=== PATIENT | male | born 1940 | race Caucasian/White ===

== ENCOUNTER → 2025-06-06 16:39 | Outpatient (REF) | payer OTHER, SELFPAY ==
[2025-06-06 17:33] LABS: Hematocrit 26.3 % (39.0-52.0); Hemoglobin 9.0 g/dL (13.0-18.0); Mean Corp Hgb Conc. 34.2 g/dL (33.0-37.0); Mean Corpuscular Volume 88.6 fL (80.0-94.0); Nucleated Red Blood Cells % 0 % (-); Platelet Count 239 10^3/uL (130-400); Red Cell Dist. Width 14.6 % (11.5-14.5)
[2025-06-06 17:41] LABS: ALT (SGPT) 17 U/L (0-50); AST (SGOT) 20 U/L (17-59); Albumin 3.7 g/dl (3.5-5.0); Alkaline Phosphatase 95 U/L (38-126); Blood Urea Nitrogen 48 mg/dl (9-20); Calcium 8.4 mg/dl (8.4-10.2); Carbon Dioxide 18 mmol/L (22-30); Chloride 108 mmol/L (98-107); Glucose 124 mg/dl (70-99); Magnesium 1.9 mg/dl (1.6-2.3); Potassium 4.6 mmol/L (3.5-5.1); Sodium 133 mmol/L (135-145); Total Protein 6.3 g/dl (6.3-8.2); eGFR 24.56
== END ==
LOC: OLAB 16:39
PROVIDERS: ATTENDING PHYSICIAN Student in an Organized Health Care Education/Training Program
DX: R05.9 Cough, unspecified (principal)
CPT/HCPCS: 80053; 83735; 85025

== ENCOUNTER → 2025-06-07 10:31 | Outpatient (REF) | payer OTHER, SELFPAY ==
[2025-06-07 11:07] LABS: Hematocrit 24.9 % (39.0-52.0); Hemoglobin 8.3 g/dL (13.0-18.0); Mean Corp Hgb Conc. 33.3 g/dL (33.0-37.0); Mean Corpuscular Volume 92.6 fL (80.0-94.0); Nucleated Red Blood Cells % 0 % (-); Platelet Count 224 10^3/uL (130-400); Red Cell Dist. Width 14.6 % (11.5-14.5)
[2025-06-07 11:13] LABS: ALT (SGPT) 15 U/L (0-50); AST (SGOT) 18 U/L (17-59); Albumin 3.2 g/dl (3.5-5.0); Alkaline Phosphatase 101 U/L (38-126); Blood Urea Nitrogen 45 mg/dl (9-20); Calcium 8.2 mg/dl (8.4-10.2); Carbon Dioxide 19 mmol/L (22-30); Chloride 108 mmol/L (98-107); Glucose 92 mg/dl (70-99); Magnesium 2.1 mg/dl (1.6-2.3); Potassium 4.0 mmol/L (3.5-5.1); Sodium 135 mmol/L (135-145); Total Protein 5.7 g/dl (6.3-8.2); eGFR 24.56
== END ==
LOC: OLABN 10:31
PROVIDERS: ATTENDING PHYSICIAN Student in an Organized Health Care Education/Training Program
DX: R05.9 Cough, unspecified (principal)
CPT/HCPCS: 80053; 83735; 85025

== ENCOUNTER 2025-06-09 23:39 | Inpatient (IN) | payer OTHER, SELFPAY ==
[2025-06-09 21:20] VITALS: BP 157/104
[2025-06-09 21:30] VITALS: BMI 21.9
[2025-06-09 21:43] LABS: Hematocrit 25.1 % (39.0-52.0); Hemoglobin 8.8 g/dL (13.0-18.0); Mean Corp Hgb Conc. 35.1 g/dL (33.0-37.0); Mean Corpuscular Volume 88.7 fL (80.0-94.0); Nucleated Red Blood Cells % 0 % (-); Platelet Count 247 10^3/uL (130-400); Red Cell Dist. Width 14.2 % (11.5-14.5)
[2025-06-09 21:58] LABS: ALT (SGPT) 18 U/L (0-50); AST (SGOT) 23 U/L (17-59); Albumin 3.9 g/dl (3.5-5.0); Alkaline Phosphatase 111 U/L (38-126); Blood Urea Nitrogen 48 mg/dl (9-20); Calcium 8.7 mg/dl (8.4-10.2); Carbon Dioxide 17 mmol/L (22-30); Chloride 99 mmol/L (98-107); Estimated Creatinine Clearance 18 ml/min; Glucose 149 mg/dl (70-99); Potassium 4.5 mmol/L (3.5-5.1); Sodium 129 mmol/L (135-145); Total Protein 6.6 g/dl (6.3-8.2); eGFR 23.43
[2025-06-09 22:00] VITALS: BP 168/89
[2025-06-09 22:06] LABS: Troponin I 0.121 ng/ml
--- NOTE | 2025-06-09 22:29 | ED.GENMED ---
History of Present Illness
General
Chief Complaint: Breathing Problem
Source: patient
Exam Limitations: clinical condition
Time Seen by Provider: 06/09/25 22:10
Nursing documentation reviewed up to this point in time: agreed with
History of Present Illness
History of Present Illness:
Note:
CHIEF COMPLAINT(S)
Shortness of breath
HISTORY OF PRESENT ILLNESS
The patient is an 85-year-old male with a history of congestive heart failure presenting with shortness of breath. The symptoms started recently, and the patient has been using two liters of supplemental oxygen as needed. A chest X-ray taken at an
outside facility showed bilateral opacities consistent with pneumonia. The patient has a history of hemoptysis but has not reported any recent episodes.
CHRONIC MEDICAL CONDITIONS SIGNIFICANTLY AFFECTING CARE
Congestive heart failure
PHYSICAL EXAM
General: Alert, moderate acute distress.
Skin: Warm, dry.
Head: Normocephalic, atraumatic.
Neck: Supple, trachea midline.
Eye, Ears, Nose, Mouth and Throat: Oral mucosa moist.
Cardiovascular: Normal peripheral perfusion, no edema.
Respiratory: Labored respirations with by basilar rales present
Gastrointestinal: Abdomen nondistended.
Back: Normal range of motion, normal alignment.
Musculoskeletal: Normal range of motion, normal strength.
Neurological: Hard of hearing responsive and somewhat oriented person, place, time, and situation, no obvious focal neurological deficit observed.
Psychiatric: Cooperative, appropriate mood & affect.
PROBLEM LIST
Acute:
- Pneumonia
Chronic:
- Congestive heart failure
PLAN
Administer furosemide (Lasix). Monitor kidney function.
DIFFERENTIAL DIAGNOSIS
The Differential Diagnosis includes, in no particular order and is not limited to:
- Congestive heart failure exacerbation
- Pneumonia
- Pulmonary embolism
- Chronic obstructive pulmonary disease exacerbation
- Acute respiratory distress syndrome
- Aspiration pneumonia
- Pulmonary edema
- Bronchitis
- Pleural effusion
- Interstitial lung disease
Disposition:
SUMMARY OF ENCOUNTER
The patient is an 85-year-old male from [facility] who presented to the emergency department with acute shortness of breath. The patient had an outpatient chest X-ray which revealed bilateral infiltrates suggestive of possible
pneumonia. The patient has a low-grade fever and an elevated white blood cell count. Given his medical history of congestive heart failure and current symptoms, he is showing signs of pneumonia. The patient exhibits rales at the lung bases, and
imaging indicates pulmonary vascular congestion. Its noted that the patients proBNP (B-type Natriuretic Peptide) is elevated at 27,000, suggesting cardiac stress. Additionally, troponin levels are elevated, indicating potential cardiac stress or
injury. The patient is also experiencing renal failure, with a creatinine level elevated to 2.6 from a baseline of 1.5-2.2, suggesting worsening renal function.
DISPOSITION
The patient will be admitted to the hospital service.
ASSESSMENT
The patient is assessed as having a high risk of congestive heart failure exacerbation, possible pneumonia, renal failure, and elevated cardiac markers indicating strain or injury.
EMERGENCY TREATMENTS ADMINISTERED
The patient will be started on piperacillin-tazobactam (Zosyn) for the possible pneumonia.
INDEPENDENT REVIEW OF LABS AND INTERPRETATION OF TESTS
My independent review of the CBC indicates leukocytosis, suggesting an infectious process. My independent review of B-type Natriuretic Peptide (proBNP) shows a significantly elevated level of 27,000, indicating possible cardiac stress or heart
failure exacerbation. My independent review of serum creatinine indicates an elevated level of 2.6, consistent with renal failure.
My independent interpretation of the chest X-ray shows bilateral infiltrates consistent with possible pneumonia and pulmonary vascular congestion.
MEDICATION RECONCILIATION
Piperacillin-tazobactam (Zosyn) was prescribed for the treatment of possible pneumonia.
MEDICAL DECISION MAKING
- Complexity of Data Reviewed: Chronic conditions affecting care include congestive heart failure, chronic kidney disease, and elevated troponin levels. The differential diagnosis includes congestive heart failure exacerbation, pneumonia, pulmonary
embolism, chronic obstructive pulmonary disease exacerbation, acute respiratory distress syndrome, aspiration pneumonia, pulmonary edema, bronchitis, pleural effusion, and interstitial lung disease.
- Data:
- Category 1:
- My independent review of labs includes CBC identifying leukocytosis, B-type Natriuretic Peptide (proBNP) indicating elevated levels, and creatinine showing renal failure.
- My independent interpretation of the chest X-ray reveals bilateral infiltrates and pulmonary vascular congestion.
- Risk: Prescription medication was prescribed with Piperacillin-tazobactam (Zosyn) being administered. High risk associated with CHF exacerbation, pneumonia, and renal failure, requiring hospital admission for close monitoring and treatment.
DIAGNOSIS
- Congestive heart failure exacerbation (ICD-10: I50.9)
- Pneumonia, unspecified organism (ICD-10: J18.9)
- Chronic kidney disease (CKD) (ICD-10: N18.9)
- Elevated cardiac troponin (R79.89)
Past History
Past History
ED Past Medical History: CAD, HTN, Hypercholesterolemia and Other (Status post CABG, carotid endarterectomy, celiac disease, deaf, GI bleed, peripheral vascular disease)
Social History
Tobacco: Former smoker (Quit in 1994)
Alcohol: None
Living: alone
Family History
Family History: Unable to obtain
Review of Systems
Review of Systems
Respiratory: Reports trouble breathing
Phy Exam
Physical Exam
Physical Exam:
.
Scores
Heart Failure Risk
Heart Failure Risk Score: Yes
History of Stroke or TIA: No
History of intubation for respiratory distress: Yes
Heart rate on ED arrival >/= 110: No
SaO2 <90% on arrival on room air: Yes
HR >/=110 during 3min walk test (or too ill to perform test): Yes
ECG has acute ischemic changes: No
Urea >/=12mmol/L (BUN 33.6mg/dL): Yes
Serum CO2>/=35mmol/L: No
Troponin I or T elevated to NV Level (0.4mg/dL): No
NT-proBNP >/=5,000ng/L (5,000pg/ml): Yes
HF Risk Score: 7
Admission Status: VERY HIGH RISK 69.8% Consider admission to hospital
Sepsis
Sepsis Screening
Sepsis Assessment: Sepsis
Sepsis Screen
Sepsis Screen: Sepsis
Date: 06/12/25
Time: 05:18
Course
Orders/Labs/Results
Orders:
Orders
06/09/25 21:21
Electrocardiogram (*1) Urgent
Reason for Study: Other
Other Reason for Exam: Respiratory Distress
EKG- Treatment ONCE
CR Chest - 2 Views Urgent
Comment:
Reason For Exam: respiratory distress
06/09/25 21:23
Complete Blood Count/With Diff Urgent
Comprehensive Metabolic Panel Urgent
NT-proBNP Urgent
Troponin I Urgent
06/09/25 21:25
Lactic Acid Urgent
06/09/25 22:27
Furosemide [Lasix] 60 mg IV NOW STA
Nitroglycerin Ointment [Nitro-Bid] 1 inch TOPICAL NOW STA
06/09/25 22:28
Piperacillin/Tazo 4.5 Gram [Zosyn] 4.5 gram in 100 ml IV NOW
06/09/25 22:45
Blood Culture Q30M
NBA Source: Blood/Venous
Specimen Description:
Blood Culture Q30M
NBA Source: Blood/Venous
Specimen Description:
06/09/25 23:13
Acetaminophen [Tylenol] 650 mg PO NOW STA
Bladder Scan As Directed
Follow Bladder Retention/Intermittent Cath Algorithm?: Yes
PRN if no void in __ hours: 6
Frequency: Per Retention Algorithm
If Bladder Scan Result >: 400
then:: Straight cath
Straight Cath As Directed
Frequency: Per Retention Algorithm
Additional Instructions: straight cath as needed per acute urinary retention algorithm for 24 hrs
Additional Instructions: for bladder scan greater than 400 mL
06/09/25 23:23
Admit/Transfer Patient As Directed
Co-Sign Provider:
Level of Care: Inpatient admission
Assign to:: IMU- Intermediate Care
Physician / Group: Mitul Alvarez
Diagnosis: acute on chronic HFpEF, PNA, CKD, urinary retention
Reason for Hospitalization: acute on chronic HFpEF, PNA, CKD, urinary retention
Expected length of stay greater than two midnights?: Yes
ELOS- Estimated Length of Stay in days: 3
I certify the patient meets the requirements for IP care: Yes
PRN Pain Medication Management As Directed
May give lesser potent ordered pain med per pt: Yes
preference::
Protocol:: Medication orders for pain may be administered in a
manner that supports deferring to patient preference
when the pt is:
- Requesting an ordered lesser potent pain medication.
Least to most potent pain medications are defined
as: acetaminophen < NSAID < tramadol < opioids
(morphine, oxycodone, hydromorphone).
- Requesting a lesser dose of the same medication IF
ORDERED.
- Requesting a less intrusive route of administration
if both routes are prescribed by the provider (PO <
IV).
06/09/25 23:26
Code Status As Directed
Resuscitation Status: Do not resuscitate
Based on pt advanced directive or healthcare POA form: Yes
DNR Bracelet Application ONCE
06/09/25 23:38
Levalbuterol [Xopenex 1.25 mg Inhalant Solution] 1.25 mg INH R NOW STA
06/09/25 23:39
Xopenex Reason for Use As Directed
Reason for ordering Xopenex instead of Albuterol: tachycardia
06/09/25 23:43
COVID-19 Antigen Urgent
Source: Nasal Swab
Influenza A+B Rapid Molecular Urgent
NBA Source: Nasal Swab
Specimen Description:
06/10/25 00:40
Acetaminophen [Tylenol] 650 mg PO Q4HPRN PRN mild pain/ fever>100.5F
Dexamethasone Sod Phosphate [Decadron] 4 mg IV Q12H
Heparin 5,000 units SC Q8
06/10/25 00:40
CARDIOLOGY CONSULT Routine
Consulting Provider: Chinmay Mullins
Was physician already notified: No
Reason for consult: CHF
Consult Notification Routine
Specialty to Notify: Cardiology
Date consulting provider notified: 06/10/25
Time consulting provider notified: 08:10
Notified:: Provider
Consult Notification Routine
Specialty to Notify: Nephrology
Date consulting provider notified: 06/10/25
Time consulting provider notified: 07:59
Notified:: Service
Comment: via TT
Consult Notification Routine
Specialty to Notify: Pulmonary
Date consulting provider notified: 06/10/25
Time consulting provider notified: 08:01
Notified:: Service
Comment: via TT
HF DIETARY CONSULT Routine
HF EDUCATOR CONSULT Routine
Comment:
NEPHROLOGY CONSULT Routine
Consulting Provider: Agus Sanford
Was physician already notified: No
Reason for consult: CKD4
PULMONARY CONSULT Routine
Consulting Provider: Richie Anderson
Was physician already notified: No
Reason for consult: CHF, PNA
Respiratory Culture/Gram Stain Urgent
NBA Source: Sputum
Specimen Description:
Activity As Directed
Activity Level: As Tolerated
Intake/ Output As Directed
Frequency: Per unit guidelines
Patient Education As Directed
Type: CHF folder
Comment: give on admission. Document in Interdisciplinary Education record
Sleep Apnea Assessment by RN As Directed
Comment:
Physician Instructions:
Vital Signs As Directed
Frequency: Per unit guidelines
Weight As Directed
Frequency: Daily
Type of Scale: Standing Scale
Comment: Daily morning weight. If unable to stand, use balanced bed scale.
Weight As Directed
Frequency: Once
Type of Scale: Standing Scale
Comment: Upon Admission. If unable to stand, use balanced bed scale.
Xopenex Reason for Use As Directed
Reason for ordering Xopenex instead of Albuterol: tachycardia/a-fib
Copd Education [RESP] Routine
O2 Therapy [RESP] Routine
Titrate/Wean O2 to maintain O2 sat greater than (%): 92
Pulse Ox/cont/shift [RESP] Routine
Quantity: 1
Special Instructions: Daily pulse oximetry at rest. If greater than 92% at rest also obtain pulse oximetry
while ambulating as tolerated.
Rx Incentive Spirometry [RESP] Routine
Frequency: q1h while awake
Pt Eval And Treat Routine
Activity Level: As Tolerated
DX Deep Vein Thrombosis Video Routine
06/10/25 01:03
Troponin I Q6H
06/10/25 03:25
Basic Metabolic Panel IN AM
Cardiovascular Evaluation IN AM
Complete Blood Count/No Diff IN AM
06/10/25 05:00
Piperacillin/Tazo 4.5 Gram [Zosyn] 4.5 gram in 100 ml IV Q6H
06/10/25 Breakfast
Regular
At Your Request: Limited Participation
06/10/25 06:06
Troponin I Q6H
06/10/25 07:00
Echo 2D MMode Color/Doppler Routine
Reason for Study: heart failure
06/10/25 08:00
Azithromycin [Zithromax] 250 mg PO DAILY
Carboxymethylcellulose [Refresh Celluvisc Gel] 1 drops BOTH EYES BID
Diltiazem [Cardizem] 30 mg PO QID
Furosemide [Lasix] 80 mg IV DAILY
Lactobac/Bifidobac [Visbiome] 1 cap PO DAILY
Pantoprazole [Protonix] 20 mg PO DAILY
Prednisolone Acetate [Pred Forte 1% Eye Drops] 1 drop OPHTH BID
06/10/25 13:46
Legionella Urinary Antigen Routine
NBA Source: Urine
Specimen Description:
Strep pneumoniae Antigen Routine
NBA Source: Urine
Specimen Description:
06/10/25 18:00
Diclofenac Sodium [Voltaren 0.1% Eye Drops] See Dose Instructions BOTH EYES QID
Latanoprost [Xalatan Ophthalmic Solution] See Dose Instructions BOTH EYES QPM
Abnormal Lab Results
06/09/25
21:23
WBC 17.9 H 10^3/uL
(4.8-10.8)
RBC 2.83 L 10^6/uL
(4.70-6.10)
Hgb 8.8 L g/dL
(13.0-18.0)
Hct 25.1 L %
(39.0-52.0)
MCH 31.1 H pg
(27.0-31.0)
MPV 11.6 H fL
(7.4-10.4)
Abs Immat Gran (auto) 0.2 H 10^3/uL
(0-0.05)
Absolute Neuts (auto) 14.2 H 10^3/uL
(1.4-6.5)
Absolute Lymphs (auto) 0.6 L 10^3/uL
(1.2-3.4)
Absolute Monos (auto) 2.8 H 10^3/uL
(0.1-0.6)
Immature Gran % 0.9 H %
(0-0.5)
Neutrophils % 79.2 H %
(42.2-75.2)
Lymphocytes % 3.5 L %
(20.5-51.1)
Monocytes % 15.8 H %
(1.7-9.3)
Sodium 129 L mmol/L
(135-145)
Carbon Dioxide 17 L mmol/L
(22-30)
BUN 48 H mg/dl
(9-20)
Creatinine 2.6 H mg/dL
(0.7-1.3)
Glucose 149 H mg/dl
(70-99)
Troponin I 0.121 H* ng/ml
06/09/25 21:23
06/09/25 21:23
Vital Signs
Initial and Last Documented VS:
Initial Vital Signs
Temp Pulse Resp BP Pulse Ox
99.5 F 102 30 157/104 88
06/09/25 21:20 06/09/25 21:20 06/09/25 21:20 06/09/25 21:20 06/09/25 21:20
Last Documented Vital Signs
Temp Pulse Resp BP Pulse Ox
98.0 F 90 24 166/79 96
06/11/25 23:40 06/12/25 04:00 06/12/25 04:00 06/12/25 04:00 06/12/25 04:00
*Radiology
Radiology exam reviewed: preliminary read by ED provider (Right lower lobe infiltrate, pulmonary vascular congestion consistent with pneumonia and congestive heart failure)
*Pulse Oximetry
SaO2: 94
Nasal Cannula flow liters per minute: 4
Oxygen Mode of Delivery: Room air
Patient hypoxic: no
*Critical Care Note
Total Time (30-74mins, 75-104mins- exclusive of procedures): Not Applicable
ED Attending Note
-
Portions of this chart may have been created with voice recognition software.� Occasional wrong word or��sound alike� substitutions may have occurred due to the inherent limitations of voice recognition software.
Discharge Plan
Departure
Patient Disposition: Admit
Date of Disposition: 06/09/25
Time of Disposition: 22:34
Admit to: IMU
Presentation/result/management discussed w/ accepting MD/DO: Hospitalist
Condition: Fair
Discharge Problem:
Community acquired pneumonia, Congestive heart failure (CHF), Stage 4 chronic kidney disease, Deaf
Interventions
Interventions:
*Risk Screen - Suicide Last Done: 06/10/25 01:39
*General Assessment Last Done: 06/09/25 21:26
*Neglect/Abuse Screening Last Done: 06/09/25 21:31
*ED- Fall Risk Assessment Last Done: 06/09/25 21:31
*ED COVID-19 Vaccine History Last Done: 06/10/25 01:39
*ED Influenza Vaccine History Last Done: 06/09/25 21:31
*Nursing Disposition Last Done: 06/10/25 00:33
ED- Cardiac Assessment Last Done: 06/09/25 21:22
ED- Pulmonary Assessment Last Done: 06/09/25 21:22
Discharge Date and Time
Discharge Date/Time: 06/10/25 00:33
[2025-06-09] MEDS: NITRO-BID 1 INCH TOPICAL (22:34)
[2025-06-09 22:35] VITALS: BP 156/88
--- NOTE | 2025-06-09 22:35 | W.PN.UPDATE ---
Addendum entered and electronically signed by Mitul Alvarez MD 06/10/25 12:23:
06/09/25 CXR
Findings most consistent with congestive heart failure.
Original Note:
Update Note
Progress Note Update
This note serves as an addendum to the H&P by mud tank operator Denzel Polanco
HPI
85M with impaired hearing Res of [place] HX CKD4, established ASCVD( CAD- CABG,PAD, SHIVA) Chr HFpEF , Prx AF seen at ER:
- acute shortness of breath
- OP CXR reports bilateral infiltrates suggestive of possible pneumonia
- low-grade fever and an elevated WCC
- Exam POS rales at the lung bases
- CXR pulmonary vascular congestion
- proBNP > 27,000,
- Elevated TPNI
- Cr 2.6 from a baseline of 1.5-2.2 with worsening renal function.
Relevant VS
06/09/25
21:20 06/09/25
21:22
Temp 99.5 F
Pulse 102
Resp Rate 30
Blood pressure 157/104
SaO2 88 95
Oxygen Mode of Delivery Room air
Nasal Cannula flow liters per minute 4
Selected Entries
08/04/23
06/09/25
Actual Weight 46.805 kg +13.0 kg = 59.8 kg
PE
Severe hearing impairment
Gen: alert , Dyspnea at rest
HEENT: anicteric , norma NC O2 2L
Neck:supple
Lungs:b/l diffuse I/E wheeze
Cor: fast and irregular
Abdomen:�benign
PSYCH SALES SPECIALIST:alert
b/l Susanna edema MS:
Psych: nl mood
Relevant Data
06/07/25 06/09/25
05:00 21:23
WBC 10.2 17.9 H
Hgb 8.3 L 8.8 L
06/06/25 06/07/25 06/09/25
13:50 05:00 21:23
Sodium 135 129 L
Chloride 108 H 99
Carbon Dioxide 18 L 19 L 17 L
BUN 48 H 45 H 48 H
Creatinine 2.5 H 2.5 H 2.6 H
Laboratory Tests
07/15/23 07/23/23 06/09/25
06:03 05:25 21:23
Lactic Acid 1.7
Troponin I 0.262 H* 0.121 H*
[id number] Pept [id number] > 79744
EKG
ATRIAL FIBRILLATION WITH RAPID VENTRICULAR RESPONSE
NONSPECIFIC ST AND T WAVE ABNORMALITY
ABNORMAL ECG
WHEN COMPARED WITH ECG OF 23-JUL-2023 13:34,
ATRIAL FIBRILLATION HAS REPLACED SINUS RHYTHM
MINIMAL CRITERIA FOR INFERIOR INFARCT ARE NO LONGER PRESENT
NONSPECIFIC T WAVE ABNORMALITY, WORSE IN INFERIOR LEADS
NONSPECIFIC T WAVE ABNORMALITY NOW EVIDENT IN ANTEROLATERAL LEADS
07/13/23 TTE
LVEF 60-65
No WMAL
Normal diastolic function
Mild mitral regurgitation.
Estimated pulmonary artery pressure of 32 mmHg. Assuming a right atrial
pressure of 8 mmHg.
Compared to prior from November 09, 2020, there is no significant change.
Last hospitalist admission: 07/13/2023 - 08/15/2023
DC DXs
1. Acute hypoxic RF multifocal PNA ( CAP + HCAP )
2. Severe aspiration syndrome.
3. Septic shock
4. COPD flare
5. TIIMI demand ischemia.
6. MACHELLE
8. Hypovolemic hyponatremia.
9. Traumatic retroperitoneal and iliopsoas hematoma with rhabdomyolysis.
10. Acute GIB
11. A/C GIB
12. Orthostatic hypotension
13. New fast AF .
14. Acute D - CHF
ASSESSMENT & PLAN
Acute on chr decompensated HFpEF with mild pleural effusion complicated by severe vol expansion,hypovolemic hyponatremia.
COPD flare with bronchospasm
Possible aspiration pneumonitis : HX HX Severe aspiration syndrome
Fast AF ith permissive VR due to acute HF and COPDS
Associated multifactorial acute on chronic hypoxic RF likely due to all of the above
Mildly HTN
Significant elevated pron BNP with new peak
Chr elevated TPNI due to CHF but less than before - NMITE
Multifactorial MACHELLE : cardio renal syndrome plus urinary retention ( PVR 323 cc)
- straight cath protocol
- IV Lasix 80mg daily
- cont HOSPITALITY INTERN PO Diltiazem
- IV Decadron 4mg q12h
- Xopenex tid and PRN
- Empiric IV Zosyn
- BCx sent
- Consults; Pul, CBC Card, Nephro
Conditions prior to admission:
Coronary artery disease status post CABG.
Known renal artery stenosis left 50 to 60% right 60 to 70% on MRI
PAD with history of bilateral carotid enterectomy's
Chronic kidney disease stage IV baseline creatinine 2.5
Essential hypertension
Dyslipidemia
Anemia of chronic disease.
History of GI bleed
Deaf.
DVT Px: SQH
DNR per [place] papers
IMU
[2025-06-09] MEDS: LASIX 60 MG IV (22:37)
--- NOTE | 2025-06-09 22:38 | HPS.HSE ---
Family Physician
-
Family Physician: Lance Rosales DO
Chief Complaint
-
dyspnea
History of Present Illness
Patient is a 85-year-old male with past medical history significant for hypertension, hyperlipidemia, chronic kidney disease, COPD, HFpEF, atrial fibrillation, coronary artery disease and peripheral vascular disease who presented to [facility] ED for
evaluation of dyspnea. HPI obtained from assessment review of chart. Patient with new onset shortness of breath at rest with increased need of O2 2L PRN. Patient had out patient chest x-ray that showed bilateral opacities consistent with pneumonia.
Facility sent patient to ED via EMS for evaluation and treatment.
Medical History
Past Medical History
Past Medical History: Reports Other
Additional Past Medical History:
hypertension
hyperlipidemia
chronic kidney disease
HFpEF
COPD
coronary artery disease
peripheral vascular disease
Past Surgical History: Reports Other
Additional Past Surgical History:
CABG
carotid surgery
Social History
Tobacco: Non-smoker
Alcohol: None
Drug: None
Personal: Single
Living: Alone
Employment: Not Employed
Family History
Family History: Not pertinent
Allergies / Home Medications
Allergies reflects when Allergies were last updated in [facility].
Home Medications with original date entered in [facility]
Allergy/Medication List:
Allergies
Allergy/AdvReac Type Severity Reaction Status Date / Time
barley Allergy Celiac Verified 06/09/25 21:29
disease
oats Allergy Celiac Verified 06/09/25 21:29
disease
rye grass Allergy Celiac Verified 06/09/25 21:29
disease
wheat Allergy Celiac Verified 06/09/25 21:29
disease
Home Medications
acetaminophen 325 mg tablet 650 mg (2 x 325 mg) PO Q6HPRN PRN mild pain/ fever>100.5F #30 tabs 08/07/23
diltiazem HCl 30 mg tablet 30 mg PO QID #60 tabs 08/10/23
Lactobacillus acidophilus 10 billion cell capsule (Probiotic) 10,000 mmu cells PO DAILY 06/09/25
azithromycin 250 mg tablet 250 mg PO DAILY 06/09/25
bisacodyl 10 mg rectal suppository 10 mg IN DAILY PRN constipation 06/09/25
carboxymethylcellulose sodium 1 % eye drops 1 drp ophthalmic (eye) BID 06/09/25
ipratropium 0.5 mg-albuterol 3 mg (2.5 mg base)/3 mL nebulization soln 3 ml inhalation Q6H 06/09/25
ketorolac 0.5 % eye drops 1 drp ophthalmic (eye) QID 06/09/25
latanoprost 0.005 % eye drops 1 drp ophthalmic (eye) QPM 06/09/25
lidocaine 4 % topical cream 1 applic topical BID 06/09/25
pantoprazole 20 mg tablet,delayed release 20 mg PO DAILY 06/09/25
prednisolone acetate 1 % eye drops,suspension 1 drp ophthalmic (eye) BID 06/09/25
Review of Systems
-
History Source: Patient and Half-Way
Constitutional: Reports Fever; Denies Chills
EENT: Denies Sore Throat
Respiratory: Reports Trouble Breathing; Denies Cough or Hemoptysis
Cardiac: Denies Chest Pain, Diaphoresis, Palpitations or Syncope
Abdomen/GI: Denies Abdominal Pain, Nausea, Vomiting or Diarrhea
: Denies Dysuria, Frequency or Urgency
Musculoskeletal: Denies Joint Pain or Joint Swelling
Skin: Denies Rash
Neurological: Denies Dizzy, Headache, Weakness or Numbness
Physical Exam
Vital Signs
Vital Signs
Temp Pulse Resp BP Pulse Ox
100.2 F 100 26 168/89 94
06/09/25 21:29 06/09/25 22:00 06/09/25 22:00 06/09/25 22:00 06/09/25 22:30
Physical Exam
General: Well Developed, Well Nourished and Respiratory Distress
HEENT: NormoCephalic, Moist mucous membranes, PERRLA, Ears Appear Normal and Deaf
Respiratory: Wheezes and Rales; No Rhonchi
Cardiac: S1/S2, Irregular Rhythm and Tachycardia; No Murmur
GI: Soft, Non Tender, Non Distended and Normal Bowel Sounds
Musculoskeletal: No Clubbing, No Cyanosis and No Edema
Skin: Warm and IV/Catheter Site
Neuro: Awake, AO x 3 and Nonfocal/grossly intact
Psych: Calm
Laboratory Results
-
06/09/25 21:23
06/09/25 21:23
Laboratory Results
Lactic Acid 1.7 mmol/L (0.7-2.0) 06/09/25 21:25
Total Bilirubin 0.5 mg/dl (0.2-1.3) 06/09/25 21:23
AST 23 U/L (17-59) 06/09/25 21:23
ALT 18 U/L (0-50) 06/09/25 21:23
Alkaline Phosphatase 111 U/L (38-126) 06/09/25 21:23
Troponin I 0.121 ng/ml H* 06/09/25 21:23
Data Reviewed
-
Lab Data: Labs Reviewed by me (WBC 17.9, hgb 8.8, hct 25.1, neut 79.2, Na+ 129, BUN 48, Creat 2.6, est CrCl 18, eGFR 23.43, trop 0.121, pBNP >62750)
Impression/Plan
-
IMPRESSION/PLAN:
#acute on chronic HFpEF
trop 0.121, pBNP >41858
nonischemic myocardial injury, chronically elevated troponin likely 2/2 CHF
- Admit to IMU
- daily weights
- I & Os
- Consult Cardiology
- ECHO
- IV Lasix 80mg daily
- trend troponin
#COPD exacerbation
#Possible aspiration pneumonitis : HX Severe aspiration syndrome
WBC 17.9, neut 79.2
- hold PRN DuoNeb
- Xopenex TID and PRN
- IV Decadron 4mg q12
- consult pulmonary
- empiric IV Zosyn
#chronic kidney disease
#cardiorenal syndrome with plus urinary retention (PVR 333 cc)
Na+ 129, BUN 48, Creat 2.6, est CrCl 18, eGFR 23.43
- trend BMP
- bladder scan/straight cath protocol
- Consult nephrology
#atrial fibrillation
- continue diltiazem
#anemia
hgb 8.8, hct 25.1
- appears stable
- monitor H/H
#coronary artery disease
s/p CABG
#hypertension
#hyperlipidemia
#peripheral vascular disease
Code status: DNR per [place] paperwork
DVT prophylaxis: heparin sq
[2025-06-09 22:39] VITALS: BP 164/83
[2025-06-09] MEDS: ZOSYN 100 IV (22:54)
[2025-06-09 23:00] VITALS: BP 164/90
[2025-06-09] MEDS: TYLENOL 650 MG PO (23:31)
[2025-06-09] MEDS: XOPENEX 1.25 MG INHALANT SOLUTION INH (23:44)
[2025-06-09] MEDS: FLUSH (NSS) 1 FLUSH IV (23:45)
[2025-06-10] VITALS (15 sets, daily range): BP systolic 111–158; BP diastolic 66–110; PULSE 2–96; BMI 21.6
[2025-06-10 00:16] LABS: COVID-19 Antigen Negative (Negative)
[2025-06-10] MEDS: DECADRON 4 MG IV ×3 (00:48→21:56)
[2025-06-10] MEDS: VENTOLIN NEBULES 2.5 MG INH (00:58)
--- NOTE | 2025-06-10 01:11 | W.PN.UPDATE ---
Update Note
Progress Note Update
-Called at bedside, patient with sob / audible wheezing, tachypneic and using accessory muscle to breath. afebrile, hr in 100s, bp 156/84 RR 30 SPO2 95% on 6 L.
-abg, nebs PRN, one time of IV morphine, IV dexamethasone was given
-Patient is alert and oriented hard of hearing/deaf was able to communicate with the patient with writing on paper and he wants his code status to be full code, witnessed by the nursing staff. Spoke to the daughter, and she mentioned that he was DNR
before when he was very sick last time, but wants to be sure that we go with the patient`s wishes now.
-Patient placed on Bipap.
-Daughter came at bedside, discussed the patient`s condition, all questions were answered.
[2025-06-10] MEDS: MORPHINE SULFATE 1 MG IV (01:18)
[2025-06-10] MEDS: HEPARIN 5000 UNITS SC ×3 (01:19→17:29)
[2025-06-10 01:23] LABS: B.E. -5.4 mmol/L; HCO3 18.6 mmol/L (21-28); O2 Saturation % 99.6 % (94-98); PCO2 30 mmHg (35-48); PO2 122 mmHg (83-108)
--- NOTE | 2025-06-10 01:46 | PTCARENOTE ---
received patient from ED. Upon arrival, patient very sob, belly breathing and audible wheezing with work of breathing increasing. TT respiratory therapy and RENT CONTROL OFFICE MANAGER samah and both at bedside. ABG done. Patient on 5L on arrival but transitioned to
bipap. IV steroids and morphine given. RENT CONTROL OFFICE MANAGER called family and daughter at bedside. continuing to monitor closely. Patient also deaf, staff writing down communication. call tafoya in reach.
[2025-06-10 01:58] LABS: Troponin I 0.127 ng/ml
--- NOTE | 2025-06-10 03:24 | PTCARENOTE ---
ALEXANDR put in transfer order for ICU. ICU staff asked Dr. Singh to evaluate patient first. Dr. Singh at bedside along with RT. New plan to draw abg in an hour and go from there. Patient back to IMU status for now. Continuing to closely monitor patient.
routine labs drawn and sent. call tafoya in reach.
[2025-06-10 03:44] LABS: Hematocrit 25.7 % (39.0-52.0); Hemoglobin 8.6 g/dL (13.0-18.0); Mean Corp Hgb Conc. 33.5 g/dL (33.0-37.0); Mean Corpuscular Volume 91.8 fL (80.0-94.0); Platelet Count 221 10^3/uL (130-400); Red Cell Dist. Width 14.5 % (11.5-14.5)
[2025-06-10 04:07] LABS: Blood Urea Nitrogen 48 mg/dl (9-20); Calcium 8.5 mg/dl (8.4-10.2); Carbon Dioxide 18 mmol/L (22-30); Chloride 100 mmol/L (98-107); Estimated Creatinine Clearance 16 ml/min; Glucose 186 mg/dl (70-99); HDL Cholesterol 50 mg/dl; LDL Cholesterol, Calculated 111 mg/dl; Potassium 3.8 mmol/L (3.5-5.1); Sodium 128 mmol/L (135-145); Very Low Density Lipoprotein 18 mg/dl (0-30); eGFR 21.44
[2025-06-10] MEDS: ZOSYN 100 IV (04:27)
[2025-06-10 05:01] LABS: B.E. -6.0 mmol/L; HCO3 18.0 mmol/L (21-28); O2 Saturation % 99.0 % (94-98); PCO2 29 mmHg (35-48); PO2 84 mmHg (83-108)
[2025-06-10 07:11] LABS: Troponin I 0.148 ng/ml
--- NOTE | 2025-06-10 08:16 | PTCARENOTE ---
Addendum entered by Valorie Vazquez RN 06/10/25 08:24:
Cannot verify accuracy of VS prior to 0700. Telemetry showing SR with rate 90s. Resident in to see patient and updated.
Original Note:
Assumed care of patient at beginning of this shift from previous RN with bipap in use. RT therapist in to see patient and weaned to 2L n/c; POx 92%, RR 19-21.Per RT patient only able to go to 500 on IS. Lungs diminished t/o; +MELGAR on minimal
exertion. Occasional moist cough heard, non-productive at this time. When patient exerts minimally, a fine audible expiratory wheeze noted. Patient stated he does feel better. Patient deaf; communicated with printing on paper using black sharpie
marker. He is oriented to self, but unable to give year, month or place.
[2025-06-10] MEDS: VISBIOME 1 CAP PO (08:34)
[2025-06-10] MEDS: REFRESH CELLUVISC GEL 1 DROPS BOTH EYES ×2 (08:34→20:46)
[2025-06-10] MEDS: CARDIZEM 30 MG PO ×2 (08:34→12:21)
[2025-06-10] MEDS: ZITHROMAX 250 MG PO (08:34)
[2025-06-10] MEDS: PROTONIX 20 MG PO (08:34)
[2025-06-10] MEDS: PRED FORTE 1% EYE DROPS 1 DROP OPHTH (08:35)
[2025-06-10] MEDS: LASIX 80 MG IV (08:35)
--- NOTE | 2025-06-10 09:21 | CON.CAR ---
Addendum entered and electronically signed by Leandro Pretty MD 06/10/25 18:17:
I saw and evaluated the patient, and I provided the substantive portion of the medical decision making.
I reviewed and agree with the note by ALEXANDR Chapman and it accurately reflects our care.
I personally performed the medical decision making of the this encounter and my assessment and plan is below:
Acute heart failure. Etiology uncertain. Type of heart failure uncertain. Will be obtaining echo.
For now IV diuresis.
We will not revisit the decision to withhold anticoagulation/antiplatelet.
For now avoiding SGLT2 inhibition.
After diuresis we will look to add GDMT based on echo and guidelines and response and tolerance to therapy.
Original Note:
Consultation
Consultation Request
Date/Time Consultation Requested: 06/10/2539
Date/Time Consultation Performed: 06/10/25919
Requesting Provider: Abby Rodriguez
Performing Provider: Sabrina STRANGE for Dr. Pretty
Reason for Consultation: CHF
Medical History
-
Chief Complaint: SOB
History of Present Illness:
85 y/o male (patient of Dr. Andrews- [facility] - last seen December 2022 per my call to the office) with hypertension, hyperlipidemia, CKD, COPD, CAD with hx CABG 2006, PAD with hx b/l carotid endarterectomies, PAF (per review of hospitalist notes from 08/2023-
not on AC due to anemia/Traumatic retroperitoneal and iliopsoas hematoma/GIB/duodenal ulcer- requiring 7 units PRBC's)- ASA/Plavix stopped that admit- also felt to have volume overload that admit (iatrogenic- sepsis and anemia received fluids and
blood products) and also had Type II MN that admit, and deafness who is here for SOB. He also has a cough. Per report, CXR as OP suggestive of PNA and he is being treated with ABX. Also with fever and elevated WBC. We are consulted since there is
also felt to be CHF component, as CXR here suggestive CHF and NT pro-BNP elevated. He is feeling improved at the time of my assessment. He has been treated with antibiotics, breathing tx, and lasix. He lives at [facility]. We were able to
communicate effectively with me writing on clip-board and him speaking.
Past Medical History
Past Medical History: Arrhythmias, CAD, COPD, HTN, Hypercholesterolemia and Other (as above)
Social History
Living: [facility]
Family History
Family History: Reviewed & Not Pertinent
Allergies / Home Medications
Allergy/AdvReac Type Severity Reaction Status Date / Time
barley Allergy Celiac Verified 06/09/25 21:29
disease
oats Allergy Celiac Verified 06/09/25 21:29
disease
rye grass Allergy Celiac Verified 06/09/25 21:29
disease
wheat Allergy Celiac Verified 06/09/25 21:29
disease
�Medication �Instructions �Recorded �Confirmed �Type
acetaminophen 325 mg tablet 650 mg (2 x 325 mg) PO Q6HPRN PRN 08/07/23 06/09/25 Rx
mild pain/ fever>100.5F #30 tabs
diltiazem HCl 30 mg tablet 30 mg PO QID #60 tabs 08/10/23 06/09/25 Rx
Lactobacillus acidophilus 10 10,000 mmu cells PO DAILY 06/09/25 06/09/25 History
billion cell capsule (Probiotic)
azithromycin 250 mg tablet 250 mg PO DAILY 06/09/25 06/09/25 History
bisacodyl 10 mg rectal suppository 10 mg UT DAILY PRN constipation 06/09/25 06/09/25 History
carboxymethylcellulose sodium 1 % 1 drp ophthalmic (eye) BID 06/09/25 06/09/25 History
eye drops
ipratropium 0.5 mg-albuterol 3 mg 3 ml inhalation Q6H 06/09/25 06/09/25 History
(2.5 mg base)/3 mL nebulization
soln
ketorolac 0.5 % eye drops 1 drp ophthalmic (eye) QID 06/09/25 06/09/25 History
latanoprost 0.005 % eye drops 1 drp ophthalmic (eye) QPM 06/09/25 06/09/25 History
lidocaine 4 % topical cream 1 applic topical BID 06/09/25 06/09/25 History
pantoprazole 20 mg tablet,delayed 20 mg PO DAILY 06/09/25 06/09/25 History
release
prednisolone acetate 1 % eye 1 drp ophthalmic (eye) BID 06/09/25 06/09/25 History
drops,suspension
Review of Systems
-
History Source: Other (patient and chart)
Respiratory: Cough and Trouble Breathing
Physical Exam
Vital Signs
Temp Pulse Resp BP Pulse Ox
97.7 F 90 29 133/89 92
06/10/25 07:18 06/10/25 08:34 06/10/25 08:15 06/10/25 08:34 06/10/25 08:15
Lab Results
06/10/25 03:25
06/10/25 03:25
Troponin I 0.148 ng/ml H* 06/10/25 06:06
Myc-R-Fyvxjninnxz Pept > 25422 pg/ml 06/09/25 21:23
Physical Exam
General: Well Developed and No Apparent Distress
HEENT: Normocephalic and Anicteric
Respiratory: Crackles (b/l bases) and Other (on O2 by NC- coarse lung sounds throughout)
Cardiac: Regular Rhythm
Musculoskeletal: No Edema
Skin: Warm and Dry
Neuro: Awake and Alert
Psych: Calm
Impression / Plan
-
PNA:
-on IV abx, as well as O2
-pulm is consulted
Acute HF, type unknown:
-records suggest hx HFpEF, but on my review it looks like hx volume overload in setting of fluid/blood administration- echo normal at that time
-in setting of renal dysfunction
-update echo now with bnp >80946, CXR suggestive CHF, rales to auscultation
-continue IV Lasix, which requires intensive monitoring- but need to monitor renal function and electrolytes
-will avoid SGLT2I with MACHELLE and active infection, urinary issues
MACHELLE on CKD:
-also with hyponatremia
-nephrology is consulted
PAF: per chart
-currently stable in SR. There is some AT/SVT, but no afib on monitor noted this admit. Some strips with blocked PAC's and junctional beats.
-[id number] score is at least 5 for age, HTN, CHF, and CAD. Notes reviewed and not on AC due to hx of severe bleeding as noted above.
-on diltiazem- continue this and follow telemetry.
CAD with hx CABG 2006:
-denies any CP
Abnormal troponin:
-trend to peak, obtain echo
-suspect acute, non-ischemic myocardial injury in setting of CHF, MACHELLE
-no CP
Hx PAD with surgery
I personally called and requested records from Dr. Andrews's office; they tell me they will fax
Data:
Echo 07/13/23: LV ejection fraction is 60-65 by visual assessment. Mild concentric left ventricular hypertrophy. Mild mitral regurgitation. Estimated pulmonary artery pressure of 32 mmHg.
Data Reviewed
-
EKG: Tracing Personally Visualized and interpreted (ST 102 BPM)
Radiology: Report Reviewed by me (CXR: Findings most consistent with congestive heart failure.)
Medical Tests (Nuc Med, Echo etc): Other (echo ordered)
Labs: Labs Reviewed by me
[2025-06-10] MEDS: DUONEB 3 ML INH ×3 (11:23→20:31)
[2025-06-10] MEDS: DUONEB INH (11:23)
--- NOTE | 2025-06-10 12:39 | CM ---
Addendum entered by Edwin José 06/10/25 13:06:
Love stated that we need to send for authorization and get a pending number before patient can return.
Original Note:
Initial Assessment Completed By Edwin. 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. According to daughter, patient was using a walker, but now has wheelchair bound. Dtr is noticing more confusion. Return referral sent. PLAN: Return to
[facility] when ready.
--- NOTE | 2025-06-10 13:13 | W.CON.NEPH ---
Consultation
-
Date/Time Consultation Requested: 06/10/25 0040
Date/Time Consultation Performed: 06/10/25 1150
Requesting Provider: Cristian Garcia
Performing Provider: Lynsey Mary
Reason for Consultation: MACHELLE with CKD
Medical History
-
Chief Complaint: SOB
History of Present Illness:
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
peripheral vascular disease who presented to [facility] ED for evaluation of dyspnea. According to the daughter pt has mild resp symp since 1week and took Z pack with out improvement. Symptoms aggravated hence refer to ER. HPI obtained from assessment
review of chart and daughter. Patient had out patient chest x-ray that showed CHF. He started on lasix 8mg daily with improvement of resp symp but not baseline. He still seem sob. He reports no cp or abd pain but history is limited due to EKUK. NO
abd pain or diarrhea. No dysuria. Cr on admit was at 2.6 and this morning at 2.8 hence nephrology asked to evaluate.
Note Pt last admit in 2022 -reportedly d/c with hospice to [place] but he outlived. He no longer follows nephrology at the facility, previously saw Dr Plasencia.
Past Medical History
hypertension
hyperlipidemia
chronic kidney disease
HFpEF
COPD
coronary artery disease
peripheral vascular disease
Past Surgical History: Reports Other
Additional Past Surgical History:
CABG
carotid surgery
Social History
Tobacco: Non-Smoker
Alcohol: None
Drug: None
Living: [facility]
Family History
Family History: Not Pertinent
Allergies / Home Medications
Allergy/AdvReac Type Severity Reaction Status Date / Time
barley Allergy Celiac Verified 06/09/25 21:29
disease
oats Allergy Celiac Verified 06/09/25 21:29
disease
rye grass Allergy Celiac Verified 06/09/25 21:29
disease
wheat Allergy Celiac Verified 06/09/25 21:29
disease
�Medication �Instructions �Recorded �Confirmed �Type
acetaminophen 325 mg tablet 650 mg (2 x 325 mg) PO Q6HPRN PRN 08/07/23 06/09/25 Rx
mild pain/ fever>100.5F #30 tabs
diltiazem HCl 30 mg tablet 30 mg PO QID #60 tabs 08/10/23 06/09/25 Rx
Lactobacillus acidophilus 10 10,000 mmu cells PO DAILY 06/09/25 06/09/25 History
billion cell capsule (Probiotic)
azithromycin 250 mg tablet 250 mg PO DAILY 06/09/25 06/09/25 History
bisacodyl 10 mg rectal suppository 10 mg MS DAILY PRN constipation 06/09/25 06/09/25 History
carboxymethylcellulose sodium 1 % 1 drp ophthalmic (eye) BID 06/09/25 06/09/25 History
eye drops
ipratropium 0.5 mg-albuterol 3 mg 3 ml inhalation Q6H 06/09/25 06/09/25 History
(2.5 mg base)/3 mL nebulization
soln
ketorolac 0.5 % eye drops 1 drp ophthalmic (eye) QID 06/09/25 06/09/25 History
latanoprost 0.005 % eye drops 1 drp ophthalmic (eye) QPM 06/09/25 06/09/25 History
lidocaine 4 % topical cream 1 applic topical BID 06/09/25 06/09/25 History
pantoprazole 20 mg tablet,delayed 20 mg PO DAILY 06/09/25 06/09/25 History
release
prednisolone acetate 1 % eye 1 drp ophthalmic (eye) BID 06/09/25 06/09/25 History
drops,suspension
Review of Systems
-
Unable to obtain full review of systems at this time due to: Patient Non Verbal
Physical Exam
Vital Signs
Vital Signs
Temp Pulse Resp BP Pulse Ox
99.0 F 100 30 126/85 93
06/10/25 11:39 06/10/25 12:00 06/10/25 12:00 06/10/25 12:00 06/10/25 11:26
Lab Results
WBC 16.9 10^3/uL (4.8-10.8) H 06/10/25 03:25
RBC 2.80 10^6/uL (4.70-6.10) L 06/10/25 03:25
Hgb 8.6 g/dL (13.0-18.0) L 06/10/25 03:25
Hct 25.7 % (39.0-52.0) L 06/10/25 03:25
Plt Count 221 10^3/uL (130-400) 06/10/25 03:25
Sodium 128 mmol/L (135-145) L 06/10/25 03:25
Potassium 3.8 mmol/L (3.5-5.1) 06/10/25 03:25
Chloride 100 mmol/L (98-107) 06/10/25 03:25
Carbon Dioxide 18 mmol/L (22-30) L 06/10/25 03:25
BUN 48 mg/dl (9-20) H 06/10/25 03:25
Creatinine 2.8 mg/dL (0.7-1.3) H 06/10/25 03:25
eGFR 21.44 06/10/25 03:25
Glucose 186 mg/dl (70-99) H 06/10/25 03:25
Calcium 8.5 mg/dl (8.4-10.2) 06/10/25 03:25
Pec-L-Gujkgtdanvf Pept > 96455 pg/ml 06/09/25 21:23
Albumin 3.9 g/dl (3.5-5.0) 06/09/25 21:23
Physical Exam
General: Awake, Alert, Oriented, AOx3 and Nontoxic
HEENT: EOMI, Anicteric and Facial Symmetry
Respiratory: Crackels, Normal Excursion and Nonlabored Respirations
Cardiac: S1/S2 and Regular Rate/Rhythm
Breast: Deferred by me
Abdomen: Soft, Nontender and Nondistended
Musculoskeletal: Edema (trace)
Skin: No Rash
Neuro: Nonfocal/Grossly Intact
Psych: Appropriate
Data Reviewed
-
Medical Tests (Nuc Med, Echo etc): Discussed with Family
Labs: Labs Reviewed by me and Discussed with Family
Assessment/Plan
-
Assessment:
Acute hypoxic respiratory failure on presentation
Acute CHD r EF 40% on echo
COPD exacerbation
Possible aspiration pneumonitis
MACHELLE with chronic kidney disease likely, stage IV-baseline creatinine 2.5 mg/DL
h/o Known SHIVA bilat
Hyponatremia
non gap met acidosis
Primary hypertension
Elevated LFTs
Anemia
CABG 2006
HLD
History of GI bleed
EKUK
PAD -history of bilateral carotid endarterectomies 2017
Orthostatic hypotension
Plan:
A/w sob for 1week, failed po abx DIGITAL STRATEGIST
seem to be in CHF, echo noted EF low 41%
CKD-cr slightly up at 2.8, baseline 2.5
suspect cardiorenal,check urine studies , PVR 98cc
BP stable
hypervolemic hyponatremia-monitor
diet restriction and FR 48ounces/day
need GOC, spoke with daughter on phone in detail
No emergent HD need
d/w nursing
[2025-06-10 14:22] LABS: Urine Character Clear (Clear)
[2025-06-10 14:24] LABS: Troponin I 0.173 ng/ml
[2025-06-10 14:34] LABS: Urine Urothelial Cell 0-2 /LPF (FEW)
--- NOTE | 2025-06-10 15:20 | PTOTSP ---
Speech Language Pathology
Pt seen for clinical bedside swallow evaluation. Pt had just finished breathing treatment. Increased WOB and wheezing noted at rest. Reviewed past VSEs with aspiration. P.O. trials of thin liquid provided. Given 1 sip with slightly delayed wet
coughing. Further P.O. trials deferred. Pt in agreement for VSE tomorrow.
Recommend:
(1) VSE 06/11
(2) Consider NPO until VSE completed
(3) Oral care 4x/day with suctioning as needed
(4) Necessary meds in small amount of puree
(5) GRID TRIMMER to continue to follow
--- NOTE | 2025-06-10 15:50 | CON.PUL ---
Consultation
Consultation Request
Date/Time Consultation Requested: 06/10/2025
Date/Time Consultation Performed: 06/10/2025
Medical History
-
Chief Complaint: Shortness of breath
History of Present Illness:
Patient is a very pleasant 85-year-old gentleman with known history of COPD, heart failure with preserved ejection fraction, A-fib presented to the hospital with worsening shortness of breath. Patient reportedly symptomatic over the last few days
with professed severely worsening shortness of breath. No significant cough or purulent expectoration reported. Patient reportedly had an outpatient x-ray which was suggestive of pneumonia and was sent to emergency room for further evaluation and
treatment. Imaging in the emergency room was suggestive of bilateral pulmonary edema. Patient was admitted to IMU and overnight required briefly BiPAP and then was transition to supplemental oxygen. In view of respiratory failure, pulmonary
consultation was requested for further input.
Past Medical History
Past Medical History: Reports Other
Additional Past Medical History:
hypertension
hyperlipidemia
chronic kidney disease
HFpEF
COPD
coronary artery disease
peripheral vascular disease
Past Surgical History: Reports Other
Additional Past Surgical History:
CABG
carotid surgery
Social History
Tobacco: Non-smoker
Alcohol: None
Drug: None
Personal: Single
Living: Alone
Employment: Not Employed
Family History
Family History: Not pertinent
Allergies / Home Medications
Allergies
Allergy/AdvReac Type Severity Reaction Status Date / Time
barley Allergy Celiac Verified 06/09/25 21:29
disease
oats Allergy Celiac Verified 06/09/25 21:29
disease
rye grass Allergy Celiac Verified 06/09/25 21:29
disease
wheat Allergy Celiac Verified 06/09/25 21:29
disease
Home Medications
�Medication �Instructions �Recorded �Confirmed �Last Taken �Type
acetaminophen 325 mg tablet 650 mg (2 x 325 mg) PO Q6HPRN PRN 08/07/23 06/09/25 Unknown Rx
mild pain/ fever>100.5F #30 tabs
diltiazem HCl 30 mg tablet 30 mg PO QID #60 tabs 08/10/23 06/09/25 Unknown Rx
Lactobacillus acidophilus 10 10,000 mmu cells PO DAILY 06/09/25 06/09/25 Unknown History
billion cell capsule (Probiotic) Supplement
azithromycin 250 mg tablet 250 mg PO DAILY Lung/Breathing 06/09/25 06/09/25 Unknown History
Issues
bisacodyl 10 mg rectal suppository 10 mg [place] DAILY PRN constipation 06/09/25 06/09/25 Unknown History
carboxymethylcellulose sodium 1 % 1 drp ophthalmic (eye) BID Eye 06/09/25 06/09/25 Unknown History
eye drops Condition
ipratropium 0.5 mg-albuterol 3 mg 3 ml inhalation Q6H Lung/Breathing 06/09/25 06/09/25 Unknown History
(2.5 mg base)/3 mL nebulization Issues
soln
ketorolac 0.5 % eye drops 1 drp ophthalmic (eye) QID Eye 06/09/25 06/09/25 Unknown History
Condition
latanoprost 0.005 % eye drops 1 drp ophthalmic (eye) QPM Eye 06/09/25 06/09/25 Unknown History
Condition
lidocaine 4 % topical cream 1 applic topical BID Pain 06/09/25 06/09/25 Unknown History
pantoprazole 20 mg tablet,delayed 20 mg PO DAILY Gastrointestinal 06/09/25 06/09/25 Unknown History
release Issue
prednisolone acetate 1 % eye 1 drp ophthalmic (eye) BID Eye 06/09/25 06/09/25 Unknown History
drops,suspension Condition
Review of Systems
-
Hematologic/Lymphatic: Other (All 14 systems reviewed and negative except as stated above in the history of present illness.)
Vitals / Labs / Diagnostic Testing
Vital Signs
Temp Pulse Resp BP Pulse Ox
99.0 F 97 18 126/85 94
06/10/25 11:39 06/10/25 15:11 06/10/25 15:11 06/10/25 12:00 06/10/25 15:11
Lab Data
06/10/25 03:25
06/10/25 03:25
Laboratory Results
06/10/25 06/10/25
01:12 04:51
pH 7.40 7.40
pCO2 30 L 29 L
pO2 122 H 84
HCO3 18.6 L 18.0 L
O2 Delivery Level
Microbiology
06/10/25 13:46 Urine Legionella Urinary Antigen - Final
Negative for Legionella pneumophila Serogroup 1 antigen.
A negative result does not rule out the possiblity of
Legionella infection due to other serogroups or species of
Legionella. Clinical correlation is recommended.
06/10/25 13:46 Urine Streptococcus pneumoniae Antigen (M - Final
Negative for Streptococcus pneumoniae antigen.
A negative result does not exclude infection with
Streptococcus pneumoniae. Clinical correlation is
recommended.
06/09/25 23:43 Nasal Swab Influenza Types A & B (ANDRE) - Final
Negative for Influenza A & B, NAAT
Negative results must be combined with clinical observations
and patient history.
Nucleic Acid Amplification test (NAAT)performed on the
[employer] platform.
Diagnostic Testing:
Physical Exam
-
HEENT: Normocephalic
Cardiovascular: S1/S2
Respiratory: Rales and Rhonchi
GI: Soft and Non Distended
Neurology: Awake and Alert
Skin: Warm
General: Comfortable
Assessment
-
#1. Acute hypoxic respiratory failure, suspect pulmonary edema
- Imaging reviewed, chest x-ray suggestive of bilateral pulmonary edema. Does not appear to have classic lobar pneumonia. Atypical pneumonia could have similar appearance however patient has dropped EF as well as pedal edema and increased BNP
suggestive of volume overload
- Continue O2 support as needed, continue diuresis per cardiology/nephrology service
- Discontinue Zosyn as acute bacterial pneumonia appears to be less likely. No fever, no purulent expectoration. If patient develops any signs or symptoms of infection, can resume Zosyn
- Continue azithromycin that patient has been on chronically for underlying COPD
- Patient required BiPAP briefly overnight, since has been transition to nasal cannula. Currently appears comfortable, continue nasal cannula. Can use BiPAP on an as needed basis
- F/u CXR in AM.
#2. History of COPD.
- Current increased wheezing could certainly be 'cardiac asthma', related to volume overload
- Continue diuresis
- Agree with continuing DuoNebs and short-term prednisone. Will favor no more than 5 days of steroid therapy
- Continue p.o. azithromycin
- DC IV dexamethasone, transition to p.o. prednisone 30 mg daily for 3 more days
#3. Acute on chronic heart failure, patient has decreased ejection fraction, LVEF 41%
- With elevated renal function, signs of volume overload, concerning for cardiorenal syndrome
- Management per nephrology and cardiology service
Other medical diagnoses:
- MACHELLE with underlying chronic kidney disease, suspect cardiorenal syndrome
- Atrial fibrillation, chronic
- History of coronary artery disease, s/p coronary artery bypass graft
- Hypertension, hyperlipidemia
- Peripheral vascular disease
- History of smoking
- Prior history of GI bleed
- History of aspiration in the past
- Mild troponin leak.
Total time spent on this consultation/encounter __65__ minutes which includes review of history, physical exam, medications, laboratory data, personal review of imaging, extensive review of outpatient records, discussion with care team and
respiratory therapy.
Data:
ECHO 05/2025: 1. Left ventricular ejection fraction is mildly reduced with an ejection fraction of 41 % by Cheema's biplane method of discs.
2. Mild to moderate mitral valve regurgitation.
3. Compared to the prior on 07/13/2023, the systolic function has reduced from 60-65% to 41 %.
[2025-06-10] MEDS: CARDIZEM PO ×2 (17:29→21:22)
[2025-06-10] MEDS: XALATAN OPHTHALMIC SOLUTION 1 DROP BOTH EYES (17:40)
[2025-06-10] MEDS: EYE BOTH EYES ×2 (17:42→23:14)
[2025-06-10] MEDS: VOLTAREN BOTH EYES ×2 (17:42→23:14)
--- NOTE | 2025-06-10 17:47 | W.PN.HOSP.TC ---
Addendum entered and electronically signed by Donnie Jerome MD 06/10/25 21:09:
Attending Addendum-
I saw and evaluated the patient. I reviewed the resident�s note and agree with findings and plan as documented in the resident�s note. Sub: patient is deaf. communicated via notepad. Complains of SOB. Overnight had to be placed on bipap due to
severe SOB. Now improved. Denies fevers chills CP palps. Full 12 point ROS reviewed and negative except as documented Exam: Vitals reviewed in chart GEN-NAD heart RRR SM @ apex, lungs fine crackles at bases. abd soft NT ND pos BS LE no edema
Plan:
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
#NIMI
-stop trending trop
-daily weights, I & Os
-Cardiology input appreciated
-ECHO 06/10-Compared to the prior on 07/13/2023, the systolic function has reduced from 60-65% to 41%.
-cont IV Lasix 80mg daily
-start SGLT2i while inpatient
#COPD exacerbation-mild
#Possible aspiration pneumonitis : HX Severe aspiration syndrome
-cont nebs, cont chronic azithro
-IV Decadron->Prednisone
-apprec pulmonary input
-DC Zosyn
-speech eval
-leukocytosis likely from inflammation and stress- trend cbc
# Hyponatremia- Hypervolemic
- cont diuresis, fluid restrict
- repeat BMP in am
#MACHELLE on CKD 3b
-baseline cr @ 2.5
-cardiorenal syndrome, monitor I and O closely
-trend BMP
-nephrology input appreciated
# Acute Hypoxemic Respiratory Failure
- from CHF exacerbation
- was on bipap->NC
- cont to diurese
- wean for o2 sat > 92%
#Atrial fibrillation
-continue diltiazem, not on AC on admission
#CAD-s/p CABG
#GERD- cont pantoprazole
#HTN
#HLD
#PVD
Code status: DNR (per [place] paperwork)->FULL
DVT prophylaxis: heparin sq
Dispo Form Neshaminy Manner
ACP
Patient consented to discuss, was alone but verified with POA daughter, time spent explanation of advance directives, changes in health status, patient�s health care wishes if the patient becomes unable to make health decisions, goals of care, code
status, and prognosis clearly staets he wants to be full code, code status change from DNR- 16 minutes
Time spent coordinating care, review of plan of care with resident, personally reviewed previous records in EMR, med rec, labs, radiology, d/w nursing, family total time documented is exclusive of any additional time listed that was spent in advance
care planning discussion -�52 minutes
Original Note:
Today's Communication/Plan
-
IV Lasix 80 mg daily
DuoNeb as needed
Levalbuterol 3 times daily and as needed ox OP takes 3 times daily and as needed
Continue Zithromax 250 mg
Monitor H&H, I's and O's, weights.
Start on BiPAP
Monitor creatinine level
Monitor BMP
Will continue to monitor
Patient has scheduled VSE tomorrow via Speech
NPO as of now
Assessment / Plan
Assessment / Plan
Impression:
85-year-old male from [facility] presented to ED on 06/09/2025 with complaints of acute shortness of breath. Patient chest x-ray revealed bilateral infiltrates suggestive of possible pneumonia. Has low-grade fever and elevated
white blood cell count. Past medical history of CHF plus current symptoms could be initial signs of pneumonia. Exhibits rales at the bilateral bases and pulmonary vascular congestion via imaging. proBNP elevated at 27,000 suggesting cardiac
stress. Troponin levels are elevated indicating possible cardiac stress or injury. Experiencing renal failure with creatinine elevated to 2.6 from baseline suggesting worsening renal function.
Plan:
#Acute on chronic HFpEF
proBNP greater than 27,000
Nonischemic myocardial injury, chronically elevated troponin likely secondary to CHF
Trend troponin I: 0.1-1��0.127��0.148
Check daily weights 59.8 down to 58.8
I&O's: No intake, 610 mL output
Echo: Previous in 2022 illustrated EF equals 60 to 65%
IV Lasix 80 mg daily
Consult cardiology
#COPD exacerbation
#Possible aspiration pneumonitis: History of severe aspiration syndrome
WBC 17.9��16.9, neutrophil 79.2
DuoNeb as needed
Levalbuterol 3 times daily and as needed ox OP takes 3 times daily and as needed
Additionally was given empiric IV Zosyn AKA pip-tazo but that was changed to Zithromax 250 mg
Started on BiPAP
Consult with speech therapy for evaluation
Patient failed speech swallow test
Scheduled for VSE in AM
NPO as of now (PO meds will be switched over for now as well via Pharmacy)
#CKD��stage IV
#Cardiorenal syndrome with urinary retention, (PVR 333 cc)
Creatinine 2.6��2.8
Bladder scan/straight cath protocol: Straight cath output is 310 mL
Trend BMP
#Atrial fibrillation
� Continue diltiazem
#Anemia
H&H is stable
#CAD
S/P CABG
#Hypertension
#Hyperlipidemia
#PVD
DVT PPx: SQH
CODE STATUS: Full code (his daughter supports his wish and is his POA)
Anticipated Discharge: 24 - 48 hours
Subjective/Interval History
-
Date of Service: June 10, 2025
Overnight event: Earlier this morning patient became short of breath, tachypneic and started using accessory muscles to breathe. He became tachycardic and blood pressure was 156/84, respiratory rate was 30, SpO2 was at 95% on 6L. He was given nebs
as needed, 1 time dose of IV morphine, one-time dose of IV dexamethasone. Patient became alert and oriented but he is hard of hearing deaf and was able to communicate with writing on paper. He once his CODE STATUS to be full code, witnessed by
nursing staff. His daughter was spoken to and she mentioned that last time he was sick he was DNR but if he changes his mind she will go with his wishes. Daughter is POA. Patient was placed on BiPAP.
Objective Data
-
Vital Signs:
Vital Signs
Temp Pulse Resp BP Pulse Ox
98.3 F 97 18 126/85 94
06/10/25 16:23 06/10/25 15:11 06/10/25 15:11 06/10/25 12:00 06/10/25 15:11
I&O
06/09/25 06/10/25 06/11/25
06:59 06:59 06:59
Output Total 610 / 610 360 / 360
Balance -610 / -610 -360 / -360
Microbiology Results - Entire Visit
06/10/25 13:46 Urine Legionella Urinary Antigen - Final
Negative for Legionella pneumophila Serogroup 1 antigen.
A negative result does not rule out the possiblity of
Legionella infection due to other serogroups or species of
Legionella. Clinical correlation is recommended.
06/10/25 13:46 Urine Streptococcus pneumoniae Antigen (M - Final
Negative for Streptococcus pneumoniae antigen.
A negative result does not exclude infection with
Streptococcus pneumoniae. Clinical correlation is
recommended.
06/09/25 23:43 Nasal Swab Influenza Types A & B (ANDRE) - Final
Negative for Influenza A & B, NAAT
Negative results must be combined with clinical observations
and patient history.
Nucleic Acid Amplification test (NAAT)performed on the
[employer] platform.
Hematology and Coagulation - Last 24 hours
06/09/25 06/10/25 Range/Units
21:23 03:25
WBC 17.9 H 16.9 H (4.8-10.8) 10^3/uL
RBC 2.83 L 2.80 L (4.70-6.10) 10^6/uL
Hgb 8.8 L 8.6 L (13.0-18.0) g/dL
Hct 25.1 L 25.7 L (39.0-52.0) %
MCV 88.7 91.8 (80.0-94.0) fL
MCH 31.1 H 30.7 (27.0-31.0) pg
MCHC 35.1 33.5 (33.0-37.0) g/dL
RDW 14.2 14.5 (11.5-14.5) %
Plt Count 247 221 (130-400) 10^3/uL
MPV 11.6 H 11.5 H (7.4-10.4) fL
Abs Immat Gran (auto) 0.2 H (0-0.05) 10^3/uL
Absolute Neuts (auto) 14.2 H (1.4-6.5) 10^3/uL
Absolute Lymphs (auto) 0.6 L (1.2-3.4) 10^3/uL
Absolute Monos (auto) 2.8 H (0.1-0.6) 10^3/uL
Absolute Eos (auto) 0.1 (0-0.7) 10^3/uL
Absolute Basos (auto) 0.1 (0-0.2) 10^3/uL
Immature Gran % 0.9 H (0-0.5) %
Neutrophils % 79.2 H (42.2-75.2) %
Lymphocytes % 3.5 L (20.5-51.1) %
Monocytes % 15.8 H (1.7-9.3) %
Eosinophils % 0.3 (0-6) %
Basophils % 0.3 (0-2) %
Nucleated RBC % 0 (-) %
Blood Gas and Chemistry - Last 24 hours
06/09/25 06/09/2506/09/25 Range/Units
21:23 21:25 22:45
pH (7.35-7.45)
pCO2 (35-48) mmHg
pO2 (83-108) mmHg
HCO3 (21-28) mmol/L
Base Excess mmol/L
ABG O2 Sat (Measured) (94-98) %
O2 Delivery Level
Sodium 129 L (135-145) mmol/L
Potassium 4.5 (3.5-5.1) mmol/L
Chloride 99 (98-107) mmol/L
Carbon Dioxide 17 L (22-30) mmol/L
BUN 48 H (9-20) mg/dl
Creatinine 2.6 H (0.7-1.3) mg/dL
Estimated Creat Clear 18 ml/min
eGFR 23.43
Glucose 149 H (70-99) mg/dl
Lactic Acid 1.7 Cancelled (0.7-2.0) mmol/L
Calcium 8.7 (8.4-10.2) mg/dl
Total Bilirubin 0.5 (0.2-1.3) mg/dl
AST 23 (17-59) U/L
ALT 18 (0-50) U/L
Alkaline Phosphatase 111 (38-126) U/L
Troponin I 0.121 H* ng/ml
Vwq-R-Dfvrurmczgp Pept > 85723 pg/ml
Total Protein 6.6 (6.3-8.2) g/dl
Albumin 3.9 (3.5-5.0) g/dl
Triglycerides (10-149) mg/dl
Total Cholesterol (50-199) mg/dl
LDL Cholesterol, Calc mg/dl
VLDL Cholesterol, Calc (0-30) mg/dl
HDL Cholesterol mg/dl
06/10/25 06/10/25 06/10/25 Range/Units
01:03 01:12 03:25
pH 7.40 (7.35-7.45)
pCO2 30 L (35-48) mmHg
pO2 122 H (83-108) mmHg
HCO3 18.6 L (21-28) mmol/L
Base Excess -5.4 mmol/L
ABG O2 Sat (Measured) 99.6 H (94-98) %
O2 Delivery Level
Sodium 128 L (135-145) mmol/L
Potassium 3.8 (3.5-5.1) mmol/L
Chloride 100 (98-107) mmol/L
Carbon Dioxide 18 L (22-30) mmol/L
BUN 48 H (9-20) mg/dl
Creatinine 2.8 H (0.7-1.3) mg/dL
Estimated Creat Clear 16 ml/min
eGFR 21.44
Glucose 186 H (70-99) mg/dl
Lactic Acid (0.7-2.0) mmol/L
Calcium 8.5 (8.4-10.2) mg/dl
Total Bilirubin (0.2-1.3) mg/dl
AST (17-59) U/L
ALT (0-50) U/L
Alkaline Phosphatase (38-126) U/L
Troponin I 0.127 H* ng/ml
Dtu-Z-Pashximeskw Pept pg/ml
Total Protein (6.3-8.2) g/dl
Albumin (3.5-5.0) g/dl
Triglycerides 92 (10-149) mg/dl
Total Cholesterol 179 (50-199) mg/dl
LDL Cholesterol, Calc 111 mg/dl
VLDL Cholesterol, Calc 18 (0-30) mg/dl
HDL Cholesterol 50 mg/dl
06/10/25 06/10/25 06/10/25 Range/Units
04:51 06:06 13:07
pH 7.40 (7.35-7.45)
pCO2 29 L (35-48) mmHg
pO2 84 (83-108) mmHg
HCO3 18.0 L (21-28) mmol/L
Base Excess -6.0 mmol/L
ABG O2 Sat (Measured) 99.0 H (94-98) %
O2 Delivery Level
Sodium (135-145) mmol/L
Potassium (3.5-5.1) mmol/L
Chloride (98-107) mmol/L
Carbon Dioxide (22-30) mmol/L
BUN (9-20) mg/dl
Creatinine (0.7-1.3) mg/dL
Estimated Creat Clear ml/min
eGFR
Glucose (70-99) mg/dl
Lactic Acid (0.7-2.0) mmol/L
Calcium (8.4-10.2) mg/dl
Total Bilirubin (0.2-1.3) mg/dl
AST (17-59) U/L
ALT (0-50) U/L
Alkaline Phosphatase (38-126) U/L
Troponin I 0.148 H* Cancelled ng/ml
Aka-Y-Cueclovtinp Pept pg/ml
Total Protein (6.3-8.2) g/dl
Albumin (3.5-5.0) g/dl
Triglycerides (10-149) mg/dl
Total Cholesterol (50-199) mg/dl
LDL Cholesterol, Calc mg/dl
VLDL Cholesterol, Calc (0-30) mg/dl
HDL Cholesterol mg/dl
06/10/25 06/10/25 Range/Units
13:42 19:40
pH (7.35-7.45)
pCO2 (35-48) mmHg
pO2 (83-108) mmHg
HCO3 (21-28) mmol/L
Base Excess mmol/L
ABG O2 Sat (Measured) (94-98) %
O2 Delivery Level
Sodium (135-145) mmol/L
Potassium (3.5-5.1) mmol/L
Chloride (98-107) mmol/L
Carbon Dioxide (22-30) mmol/L
BUN (9-20) mg/dl
Creatinine (0.7-1.3) mg/dL
Estimated Creat Clear ml/min
eGFR
Glucose (70-99) mg/dl
Lactic Acid (0.7-2.0) mmol/L
Calcium (8.4-10.2) mg/dl
Total Bilirubin (0.2-1.3) mg/dl
AST (17-59) U/L
ALT (0-50) U/L
Alkaline Phosphatase (38-126) U/L
Troponin I 0.173 H* Pending ng/ml
Anx-J-Vqyyhzuypew Pept pg/ml
Total Protein (6.3-8.2) g/dl
Albumin (3.5-5.0) g/dl
Triglycerides (10-149) mg/dl
Total Cholesterol (50-199) mg/dl
LDL Cholesterol, Calc mg/dl
VLDL Cholesterol, Calc (0-30) mg/dl
HDL Cholesterol mg/dl
Other lab results - Last 24 hours
06/09/25 06/10/25 Range/Units
23:43 Unknown
Urine Color Yellow
Urine Clarity Clear (Clear)
Urine pH 5.0 (5.0-9.0)
Ur Specific Peak 1.010 (<1.030)
Urine Ketones Negative (Negative)
Urine Occult Blood 2+ A (Negative)
Urine Nitrite Negative (Negative)
Urine Bilirubin Negative (Negative)
Urine Urobilinogen Negative (Neg - 1+)
Ur Leukocyte Esterase Negative (Negative)
Urine RBC 3-6 A (0-2) /HPF
Urine WBC 3-5 (0-5) /HPF
Ur Squamous Epith Cells 3-5 (Few) /LPF
Ur Urothelial Cells 0-2 (FEW) /LPF
Urine Bacteria Few A (Negative)
Urine Creatinine 15.800 mg/dl
Urine Sodium 81 (30-90) mmol/L
Urine Glucose Negative (Negative)
Urine Albumin 3+ A (Neg - Trace)
SARS-CoV-2 Antigen Negative (Negative)
Review of Systems
-
Unable to obtain full review of systems at this time due to: Patient Non-verbal (He is deaf)
History Source: Patient and Family
All other systems: Reviewed and negative
Respiratory: Reports Cough
Psych: Reports Anxious
Physical Exam
-
General: Well Developed and Well Nourished
HEENT: Normocephalic, Atraumatic and Other (Hearing impairment)
Respiratory: Clear to Auscultation
Cardiac: Regular Rhythm and S1/S2
Breast: Deferred by me
GI: Soft, Nontender and Nondistended
Musculoskeletal: No Clubbing, No Cyanosis and No Edema
Neuro: Awake and Alert
Psych: Anxious
Data Reviewed
-
Diagnostic Radiology: Report Reviewed by me
Medical Tests (Nuc Med, Echo etc): Report Reviewed by me and Discussed with Physician
Labs: Labs Reviewed by me and Discussed with Physician
--- NOTE | 2025-06-10 18:08 | PTCARENOTE ---
Patient now NPO. TT sent to Dr Jerome and Dr Foss to make them aware. Dr Pretty on unit to see patient and made aware patient NPO but ordered cardizem po.
[2025-06-10] MEDS: PRED FORTE 1% EYE DROPS 1 DROP BOTH EYES (20:46)
[2025-06-10] MEDS: ZITHROMAX 252.5 MG IV (21:56)
[2025-06-10 23:39] LABS: Troponin I 0.168 ng/ml
[2025-06-11] VITALS (15 sets, daily range): BP systolic 92–164; BP diastolic 69–104; PULSE 107; O2SAT 94; BMI 21.6
[2025-06-11] MEDS: HEPARIN 5000 UNITS SC ×4 (00:30→23:14)
[2025-06-11 05:43] LABS: Hematocrit 23.2 % (39.0-52.0); Hemoglobin 8.0 g/dL (13.0-18.0); Mean Corp Hgb Conc. 34.5 g/dL (33.0-37.0); Mean Corpuscular Volume 91.3 fL (80.0-94.0); Nucleated Red Blood Cells % 0 % (-); Platelet Count 203 10^3/uL (130-400); Red Cell Dist. Width 14.6 % (11.5-14.5)
[2025-06-11 06:11] LABS: ALT (SGPT) 21 U/L (0-50); AST (SGOT) 25 U/L (17-59); Albumin 3.6 g/dl (3.5-5.0); Alkaline Phosphatase 98 U/L (38-126); Blood Urea Nitrogen 69 mg/dl (9-20); Calcium 8.8 mg/dl (8.4-10.2); Carbon Dioxide 19 mmol/L (22-30); Chloride 101 mmol/L (98-107); Estimated Creatinine Clearance 14 ml/min; Glucose 135 mg/dl (70-99); Magnesium 2.5 mg/dl (1.6-2.3); Potassium 3.8 mmol/L (3.5-5.1); Sodium 136 mmol/L (135-145); Total Protein 6.2 g/dl (6.3-8.2); eGFR 18.27
[2025-06-11] MEDS: DUONEB 3 ML INH ×4 (07:44→19:20)
[2025-06-11] MEDS: PROTONIX IV 20 MG IV (08:10)
[2025-06-11] MEDS: VISBIOME PO (08:10)
[2025-06-11] MEDS: NSS (PRESERVATIVE FREE) 10 ML IV (08:11)
[2025-06-11] MEDS: REFRESH CELLUVISC GEL 1 DROPS BOTH EYES ×2 (08:16→20:14)
[2025-06-11] MEDS: PRED FORTE 1% EYE DROPS 1 DROP BOTH EYES ×2 (08:23→20:15)
[2025-06-11] MEDS: EYE BOTH EYES ×4 (08:24→23:14)
[2025-06-11] MEDS: VOLTAREN BOTH EYES ×4 (08:24→23:14)
[2025-06-11] MEDS: ZITHROMAX PO (08:27)
--- NOTE | 2025-06-11 08:29 | W.PN.CD ---
Today's Communication / Plan
-
Continue diuresis
Add metoprolol for GDMT
Impression / Plan
-
85 y/o male (patient of Dr. Andrews- [facility] - last seen December 2022 with hypertension, hyperlipidemia, CKD, COPD, CAD with hx CABG 2006, PAD with hx b/l carotid endarterectomies, PAF (per review of hospitalist notes from 08/2023- not on AC due to
anemia/Traumatic retroperitoneal and iliopsoas hematoma/GIB/duodenal ulcer- requiring 7 units PRBC's)- ASA/Plavix stopped that admit- also felt to have volume overload that admit (iatrogenic- sepsis and anemia received fluids and blood products) and
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 Found to have acute hypoxic respiratory failure and reduced EF.
Acute hypoxic respiratory failure
- Multifactorial due to acute CHF exacerbation, COPD, and possible atypical pneumonia
- Wean supplemental O2 as tolerated
- Continue with antibiotics for pneumonia and short-term steroids for COPD. Pulmonary is consulted
- Management of CHF as below
Acute HFrEF
- Severe exacerbation requiring IV diuresis and close monitoring of labs and telemetry
- TTE 06/10/2025: LVEF 41%, global hypokinesis, mild/moderate mitral regurgitation
- Unclear chronicity/etiology. Still awaiting outside records
- Continue with 80 mg IV Lasix daily. Suspect he is still volume overloaded despite creatinine bump.
- Weight in 2022 was 100-105 pounds. He is currently 129 pounds.
- GDMT:
- Switch diltiazem to metoprolol succinate 50 mg daily
- Other GDMT (TICO/ARB/ARNI, SGLT2 inhibitor, MRA) currently limited by renal function
MACHELLE on CKD:
-also with hyponatremia
-nephrology is consulted
PAF: per chart
-currently stable in SR. There is some AT/SVT, but no afib on monitor noted this admit. Some strips with blocked PAC's and junctional beats.
-[id number] score is at least 5 for age, HTN, CHF, and CAD. Notes reviewed and not on AC due to hx of severe bleeding as noted above.
-Diltiazem switched to metoprolol given HFrEF
CAD with hx CABG 2007:
-denies any CP
Abnormal troponin:
-due to acute, non-ischemic myocardial injury in setting of CHF, MACHELLE. Peak 0.173
-no CP
Hx PAD with surgery
Subjective: No complaints.
Physical Exam
Vital Signs/Labs
Vital Signs
Temp Pulse Resp BP Pulse Ox
97.4 F 93 23 133/81 93
06/11/25 07:43 06/11/25 08:00 06/11/25 08:00 06/11/25 07:29 06/11/25 08:08
06/10/25 06/11/25 06/12/25
06:59 06:59 06:59
Actual Weight 129 lb 10.109 oz
06/11/25 05:33
06/11/25 05:33
Magnesium 2.5 mg/dl (1.6-2.3) H 06/11/25 05:33
Triglycerides 92 mg/dl (10-149) 06/10/25 03:25
LDL Cholesterol, Calc 111 mg/dl 06/10/25 03:25
VLDL Cholesterol, Calc 18 mg/dl (0-30) 06/10/25 03:25
HDL Cholesterol 50 mg/dl 06/10/25 03:25
06/09/25
21:23
Zrd-S-Xvybuhtbwrt Pept > 20793
LAB Results
06/09/25 06/10/25 06/10/25
21:23 01:03 06:06
Troponin I 0.121 H* 0.127 H* 0.148 H*
06/10/25 06/10/25 06/10/25
13:07 13:42 19:40
Troponin I Cancelled 0.173 H* Cancelled
06/10/25 06/11/25 06/11/25
23:03 03:40 11:40
Troponin I 0.168 H* Cancelled Cancelled
06/11/25
19:40
Troponin I Cancelled
Physical Exam
Constitutional: No acute distress and Comfortable
Cardiovascular: Rhythm & rate is regular, Pedal edema present (trace, bilateral), S1S2 is normal and Murmur/rub/gallop absent
Respiratory: Respiratory effort normal and Crackles Present
Data Reviewed
-
Date of Service: June 11, 2025
Medical Decision Making: Reviewed Test Results, Independent Historian Assessment, Test Interpretation and Review of Case with other Provider
EKG: Tracing Personally Visualized and interpreted
Echo: Report Reviewed by me
X-Ray/CT/US/MRI/NUC/PET: Report Reviewed by me
Labs: Labs Reviewed by me
[2025-06-11] MEDS: LASIX 80 MG IV ×2 (08:33→15:02)
[2025-06-11] MEDS: ZITHROMAX 252.5 MG IV (08:44)
[2025-06-11] MEDS: TOPROL XL PO (08:45)
--- NOTE | 2025-06-11 11:00 | PTOTSP ---
Speech Language Pathology
VIDEOFLUOROSCOPIC SWALLOWING EXAMINATION (VSE) completed. Video correctional security officer utilized for ASL to aid in communication. Mild pharyngeal dysphagia noted. Supraglottic penetration noted with thin and mildly thick liquids, but no aspiration noted.
Only trace intermittent pharyngeal residue noted.
Recommend:
(1) Regular solids/thin liquids
(2) Aspiration precautions: sit upright, slow rate, intermittent cough/reswallow
(3) Meds as tolerated
(4) MANAGER DISH to continue to follow
[2025-06-11] MEDS: DECADRON 4 MG IV (11:40)
--- NOTE | 2025-06-11 13:18 | W.PN.NEPH.PH ---
Today's Communication / Plan
-
cont IV diuresis
need GOC discussion
Assessment/Plan
-
Assessment:
Acute hypoxic respiratory failure on presentation
Acute CHD r EF 40% on echo
COPD exacerbation
Possible aspiration pneumonitis
MACHELLE with chronic kidney disease likely, stage IV-baseline creatinine 2.5 mg/DL
h/o Known SHIVA bilat
Hyponatremia
non gap met acidosis
Primary hypertension
Elevated LFTs
Anemia
CABG 2006
HLD
History of GI bleed
[facility]
PAD -history of bilateral carotid endarterectomies 2017
Orthostatic hypotension
Plan:
A/w sob for 1week,
seem to be in CHF, echo noted EF low 41%
CKD-cr up at 3.2, baseline 2.5, non oliguric
suspect cardiorenal, UA microscopic hematuria and 3+alb-check U PCR , PVR 98cc
CXR worse today and no wt chnage-cont lasix 80 BID, extra dose this pm too
BP stable
hypervolemic hyponatremia-improved
improving met acidosis
diet restriction and FR 48ounces/day
need GOC, spoke with daughter on phone
No emergent HD need, but unlikely good group home HD candidate either with frail status
he previously was on hospice 2022
d/w pulm
-
-
Date of Service: June 11, 2025
CC / HPI / ROS
-
Chief Complaint:
Follow-up MACHELLE with CKD, hyponatremia, metabolic acidosis
History of Present Illness:
Na up to 136
Cr up at 3.2
increasing O2 6lit
non oliguric but nochange in wt
Review of Systems:
difficult to communicate with [facility]
no pain
c/o sob
Labs
-
Labs:
WBC 16.6 10^3/uL (4.8-10.8) H 06/11/25 05:33
RBC 2.54 10^6/uL (4.70-6.10) L 06/11/25 05:33
Hgb 8.0 g/dL (13.0-18.0) L 06/11/25 05:33
Hct 23.2 % (39.0-52.0) L 06/11/25 05:33
Plt Count 203 10^3/uL (130-400) 06/11/25 05:33
Sodium 136 mmol/L (135-145) D 06/11/25 05:33
Potassium 3.8 mmol/L (3.5-5.1) 06/11/25 05:33
Chloride 101 mmol/L (98-107) 06/11/25 05:33
Carbon Dioxide 19 mmol/L (22-30) L 06/11/25 05:33
BUN 69 mg/dl (9-20) H 06/11/25 05:33
Creatinine 3.2 mg/dL (0.7-1.3) H 06/11/25 05:33
eGFR 18.27 06/11/25 05:33
Glucose 135 mg/dl (70-99) H 06/11/25 05:33
Calcium 8.8 mg/dl (8.4-10.2) 06/11/25 05:33
Xrk-E-Pnvqxszfzgq Pept > 95798 pg/ml 06/09/25 21:23
Albumin 3.6 g/dl (3.5-5.0) 06/11/25 05:33
Physical Exam
-
Vital Signs:
Vital Signs
Temp Pulse Resp BP Pulse Ox
97.7 F 106 27 146/74 94
06/11/25 11:00 06/11/25 12:23 06/11/25 12:23 06/11/25 12:23 06/11/25 12:23
Cardiovascular:: Regular rate and rhythm
Respiratory:: Bilateral: Coarse
Lung Excursion:: Normal
Abdomen:: Nontender and Soft
Bowel Sounds:: Normal
Extremity Edema:: +1: Bilateral:
Hannah Catheter: No
--- NOTE | 2025-06-11 14:34 | W.PN.PUL3 ---
Today's Communication / Plan
-
- Additional Lasix 80 mg x 1 stat
- Follow-up chest x-ray in a.m.
Assessment
-
Patient is a very pleasant 85-year-old gentleman with known history of COPD, heart failure with preserved ejection fraction, A-fib presented to the hospital with worsening shortness of breath. Patient reportedly symptomatic over the last few days
with professed severely worsening shortness of breath. No significant cough or purulent expectoration reported. Patient reportedly had an outpatient x-ray which was suggestive of pneumonia and was sent to emergency room for further evaluation and
treatment. Imaging in the emergency room was suggestive of bilateral pulmonary edema. Patient was admitted to IMU and overnight required briefly BiPAP and then was transition to supplemental oxygen. In view of respiratory failure, pulmonary
consultation was requested for further input.
#1. Acute hypoxic respiratory failure, suspect pulmonary edema
- Imaging reviewed, chest x-ray somewhat worse. Does not appear to have classic lobar pneumonia. Atypical pneumonia could have similar appearance however patient has dropped EF as well as pedal edema and increased BNP suggestive of volume overload
- Still has pedal edema, weight unchanged, x-ray appears slightly worse, needing 5 to 6 L supplemental oxygen. Discussed with nephrology and cardiology service. Will give additional 80 mg IV Lasix stat, increase dosing to twice daily. Creatinine
also worsening likely suggestive of cardiorenal syndrome
- Continue O2 support as needed, continue diuresis per cardiology/nephrology service.
- Discontinued Zosyn as acute bacterial pneumonia appears to be less likely. No fever, no purulent expectoration. If patient develops any signs or symptoms of infection, can resume Zosyn
- Continue azithromycin that patient has been on chronically for underlying COPD
- Patient required BiPAP briefly after admission, since has been transition to nasal cannula. Currently appears comfortable, continue nasal cannula. Can use BiPAP on an as needed basis
- F/u CXR in AM.
#2. History of COPD.
- Increased wheezing could certainly be 'cardiac asthma', related to volume overload. 06/11, no wheezing noted this AM.
- Continue diuresis
- Agree with continuing DuoNebs and short-term prednisone. Will favor no more than 5 days of steroid therapy
- Continue p.o. azithromycin
#3. Acute on chronic heart failure, patient has decreased ejection fraction, LVEF 41%
- With elevated renal function, signs of volume overload, concerning for cardiorenal syndrome
- Management per nephrology and cardiology service
Other medical diagnoses:
- MACHELLE with underlying chronic kidney disease, suspect cardiorenal syndrome
- Atrial fibrillation, chronic
- History of coronary artery disease, s/p coronary artery bypass graft
- Hypertension, hyperlipidemia
- Peripheral vascular disease
- History of smoking
- Prior history of GI bleed
- History of aspiration in the past
- Mild troponin leak.
Total time spent on this consultation/encounter __35__ minutes which includes review of history, physical exam, medications, laboratory data, personal review of imaging, extensive review of outpatient records, discussion with care team and
respiratory therapy.
Data:
ECHO 05/2025: 1. Left ventricular ejection fraction is mildly reduced with an ejection fraction of 41 % by Cheema's biplane method of discs.
2. Mild to moderate mitral valve regurgitation.
3. Compared to the prior on 07/13/2023, the systolic function has reduced from 60-65% to 41 %.
Subjective Data
-
Date of Service:
Date of Service: June 11, 2025
Objective Data
Data Reviewed
Vital Signs / I&O / Oxygen:
Vital Signs
Temp Pulse Resp BP Pulse Ox
97.7 F 106 27 146/74 94
06/11/25 11:00 06/11/25 12:23 06/11/25 12:23 06/11/25 12:23 06/11/25 12:23
Intake and Output
06/10/25 06/11/25 06/12/25
06:59 06:59 06:59
Intake Total 250 / 250
Output Total 610 / 610 1335 / 1335 390 / 390
Balance -610 / -610 -1335 / -1335 -140 / -140
SaO2 94
Nasal Cannula flow liters per 6
minute
Labs/Micro/Reports
Lab Data
06/11/25 05:33
06/11/25 05:33
Microbiology
06/10/25 09:43 Nose MRSA Screen - Final
No Methicillin Resistant Staphylococcus aureus isolated.
06/09/25 22:45 Blood/Venous Blood Culture - Preliminary
No Growth in 24 hours- Final report to follow
06/09/25 22:45 Blood/Venous Blood Culture - Preliminary
No Growth in 24 hours- Final report to follow
06/10/25 13:46 Urine Legionella Urinary Antigen - Final
Negative for Legionella pneumophila Serogroup 1 antigen.
A negative result does not rule out the possiblity of
Legionella infection due to other serogroups or species of
Legionella. Clinical correlation is recommended.
06/10/25 13:46 Urine Streptococcus pneumoniae Antigen (M - Final
Negative for Streptococcus pneumoniae antigen.
A negative result does not exclude infection with
Streptococcus pneumoniae. Clinical correlation is
recommended.
06/09/25 23:43 Nasal Swab Influenza Types A & B (ANDRE) - Final
Negative for Influenza A & B, NAAT
Negative results must be combined with clinical observations
and patient history.
Nucleic Acid Amplification test (NAAT)performed on the
[employer] platform.
--- NOTE | 2025-06-11 14:43 | W.PN.UPDATE ---
Update Note
Progress Note Update
spoke with daughter on phone in detail
explained about worsening renal function and CHF
he is not candidate for HD with poor QOL
family reports QOL is priority
She will discuss with her brother and make decision
--- NOTE | 2025-06-11 15:11 | PTCARENOTE ---
Patient is only oriented to self this shift, pleasant and cooperative, utilizing note pad for communication. Pt's is at bedside, TT to hospitalist that daughter is requesting to speak to primary team while she is here visiting. Pt voiding via
urinal, oob to chair, continues iv diuresis, 2L NC, daughter ordered him a late lunch.
--- NOTE | 2025-06-11 16:34 | W.PN.HOSP.TC ---
Addendum entered and electronically signed by Donnie Jerome MD 06/11/25 20:48:
Attending Addendum-
I saw and evaluated the patient. I reviewed the resident�s note and agree with findings and plan as documented in the resident�s note. Sub: patient is deaf. communicated via notepad. Complains of cough and SOB but improved. Denies fevers chills CP
palps. Full 12 point ROS reviewed and negative except as documented Exam: Vitals reviewed in chart GEN-NAD heart tachycardic SM @ apex, lungs fine crackles at bases. abd soft NT ND pos BS LE no edema
Plan:
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
#NIMI
-worsening
-stop trending trop
-start metoprolol per cards, DC cardizem
-daily weights, I & Os
-Cardiology input appreciated
-ECHO 06/10-Compared to the prior on 07/13/2023, the systolic function has reduced from 60-65% to 41%.
-increase IV Lasix 80mg daily->BID
-unable to start SGLT2i due to worsening kidney fx
#COPD exacerbation-mild
#Possible aspiration pneumonitis : HX Severe aspiration syndrome
-cont nebs, cont chronic azithro
-IV Decadron->Prednisone
-apprec pulmonary input
-DC'd Zosyn
-speech eval - VFSS 06/11 no aspiration- restart diet
-leukocytosis likely from inflammation and stress- trend cbc
# Hyponatremia- Hypervolemic
- resolved
- cont diuresis, fluid restrict
- repeat BMP in am
#MACHELLE on CKD 3b
-baseline cr @ 2.5
-worsening
-cardiorenal syndrome, monitor I and O closely
-trend BMP
-nephrology input appreciated
-not a candidate for HD- d/w patient and he understands severity of illness
# Acute Hypoxemic Respiratory Failure
- CXR personally reviewed- worsening CHF
- from CHF exacerbation
- was on bipap->NC
- cont to diurese
- wean for o2 sat > 92%
#Atrial fibrillation
-dc diltiazem, not on AC on admission due to bleeding risk
- start metoprolol per cards
#CAD-s/p CABG
#GERD- cont pantoprazole
#HTN
#HLD
#PVD
Code status: DNR (per [place] paperwork) now wants to be->FULL
DVT prophylaxis: heparin sq
Dispo Form Neshaminy Manner
Time spent coordinating care, review of plan of care with resident, personally reviewed records in EMR, med rec, consults, notes, labs, radiology, d/w nursing, nephro cards and pulm � 53 mins
Original Note:
Today's Communication/Plan
-
Change 80 IV lasix from once daily to BID to encourage diuresis
Put patient on 40 mg prednisone for no more than 3 days as per pulm
D/C diltiazem as per cards
Changed patient back from NPO to solid food and think liquids diet
Discussed updates and plans for patient care with patients daughter.
Chest X Ray ordered for AM.
Assessment / Plan
Assessment / Plan
Impression:
85-year-old male from [facility] presented to ED on 06/09/2025 with complaints of acute shortness of breath. Patient chest x-ray revealed bilateral infiltrates suggestive of possible pneumonia. Has low-grade fever and elevated
white blood cell count. Past medical history of CHF plus current symptoms could be initial signs of pneumonia. Exhibits rales at the bilateral bases and pulmonary vascular congestion via imaging. proBNP elevated at 27,000 suggesting cardiac
stress. Troponin levels are elevated indicating possible cardiac stress or injury. Experiencing renal failure with creatinine elevated to 2.6 from baseline suggesting worsening renal function. As of (06/11/2025): Patient is tachycardia and
tachypneic. 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 His most recent Echo illustrates a EF from 60-65% down to 41%. Speech therapy had initially evaluated the patient and determined he might be a high aspiration risk so they
advised for him to be put on n.p.o. until further notice. This morning they conducted a VSE procedure that illustrated that Mr. Stokes was in fact not high aspiration risk. His diet was changed back to full solids and thin liquids, and his
medications that originally were converted from p.o. to IV, will convert back to p.o. His chest x-ray from today compared with the prior x-ray illustrated, much worse his CHF again. The decision was made to put him on 80 mg IV Lasix twice daily to
try to help with the diuresis. Patient's daughter was notified and she came to talk to the hospitalist team. She was educated on the topic of CHF as it relates to kidney function. Her brother was also listening on the call. The family was given a
brief update of the situation and reconfirmed their fathers full code status. I explained how his worsening CHF and renal function were connected and the steps we're taking to help treat these issues. Family understands he is not a candidate for
hemodialysis and would have a poor quality of life. Will update daughter tomorrow on her fathers condition.
Plan:
#Acute on chronic HFpEF
proBNP greater than 27,000
Nonischemic myocardial injury, chronically elevated troponin likely secondary to CHF
Trend troponin I: 0.1-1��0.127��0.148
Check daily weights 59.8 --58.8--58.8
I&O's: 250 ml intake, 1565 mL output
Echo: Previous in 2022 illustrated EF equals 60 to 65%
Echo: From morning of 06/11/2025: EF equals 41%
Cardiology consulted
IV Lasix 80 mg was changed from daily to BID to aid with the diuresis.
#COPD exacerbation
#Possible aspiration pneumonitis: History of severe aspiration syndrome
WBC 17.9��16.9--16.6, neutrophil 79.2--89.4
DuoNeb as needed
Continue Azithromycin 250 mg PO Daily
IV Decadron to Prednisone 30 mg for 3 more days
After VSE results, speech recommends patient be switched back from NPO to regular solids/thin liquids
Aspiration precautions: sit upright, slow rate, intermittent cough/swallow
Meds as tolerated
TUNGSTEN REFINER will continue to follow.
#Hyponatremia - Hypervolemic
Na: 128--136
Continue diuresis
Fluid restriction
#CKD��stage IV
#Cardiorenal syndrome with urinary retention, (PVR 333 cc)
Creatinine 2.6��2.8 (baseline @2.5)
Bladder scan/straight cath protocol: Straight cath output is 310 mL
Trend BMP
#Acute Hypoxemic Respiratory Failure
via CHF exacerbation
Chest X Ray in AM (ordered)
Was on BiPAP, now on Nasal cannula
Wean for O2 sat >92%
#Atrial fibrillation
� D/C diltiazem
#Anemia
H&H is stable
#CAD
S/P CABG
#Hypertension
#Hyperlipidemia
#PVD
DVT PPx: SQH
CODE STATUS: Full code (his daughter supports his wish and is his POA)
Anticipated Discharge: > 48 hours
Subjective/Interval History
-
Date of Service: June 11, 2025
As per his nurse, there were no acute overnight events to report.
Objective Data
-
Labs:
Laboratory Results
06/11/25
05:33
WBC 16.6 H
Hgb 8.0 L
Hct 23.2 L
Plt Count 203
Sodium 136 D
Potassium 3.8
Chloride 101
Carbon Dioxide 19 L
BUN 69 H
Creatinine 3.2 H
Glucose 135 H
Calcium 8.8
Total Bilirubin 0.5
AST 25
ALT 21
Alkaline Phosphatase 98
Vital Signs:
Vital Signs
Temp Pulse Resp BP Pulse Ox
97.6 F 105 39 148/79 92
06/11/25 15:10 06/11/25 16:00 06/11/25 16:00 06/11/25 16:00 06/11/25 15:16
I&O
06/10/25 06/11/25 06/12/25
06:59 06:59 06:59
Intake Total 250 / 250
Output Total 610 / 610 1335 / 1335 590 / 590
Balance -610 / -610 -1335 / -1335 -340 / -340
Chest x-ray (06/09/2025): Mild cardiomegaly. Small bilateral pleural effusions. Peribronchial thickening, interstitial thickening, and bilateral groundglass opacity, most pronounced in the left upper lobe. This consistent with congestive heart
failure with pulmonary edema.
Chest x-ray (06/11/2025): Worsening CHF.
Micro Blood/Resp/Urine: All negative results.
Review of Systems
-
Unable to obtain full review of systems at this time due to: Patient Non-verbal (He is deaf)
History Source: Patient and Family
All other systems: Reviewed and negative
Respiratory: Reports Cough
Psych: Reports Anxious
Physical Exam
-
General: Well Developed and Well Nourished
HEENT: Normocephalic, Atraumatic and Other (Hearing impairment)
Respiratory: Crackles (Fine crackles can be appreciated at the lung bases)
Cardiac: Regular Rhythm, S1/S2 and Murmur (Systolic murmur at the apex)
Breast: Deferred by me
GI: Soft, Nontender and Nondistended
Musculoskeletal: No Clubbing, No Cyanosis and No Edema
Neuro: Awake and Alert
Psych: Anxious
Data Reviewed
-
Diagnostic Radiology: Report Reviewed by me
Medical Tests (Nuc Med, Echo etc): Report Reviewed by me and Discussed with Physician
Labs: Labs Reviewed by me and Discussed with Physician
[2025-06-11] MEDS: XALATAN OPHTHALMIC SOLUTION 1 DROP BOTH EYES (17:14)
--- NOTE | 2025-06-11 17:56 | CM ---
F/U: Hospitalist spoke to daughter about poor renal function so family is deciding on next steps. Patient is LTC at [facility]. PLAN: TBD, Anticipate Return to [facility]/ hospice.
--- NOTE | 2025-06-11 20:00 | PTCARENOTE ---
Resumed care of pt sitting in chair. Pt sleeping in chair. Pt easily awakens to tactile stimulation. Pt is Deaf, pt able to follow commands using gestures. Pt completely saturated in chair. Pt assisted back to bed X1. CHG bath provided, Gabriela care
complete. Fresh linens now in place. Pt tachycardic HR in the 115 with activity. Pt tachypneic/MELGAR. POX dropped to 83% once getting into bed. POX 95% on 5LO2 Midflow NC at rest. Scattered crackles/ course lungs. Moist harsh non productive cough. +
bowel. NO BM. Palpable peripheral pulses present. Pt assisted to brush teeth, face washed. Pt using urinal/ inc as well. Pillow under heals. Pt positioned per comfort. Call tafoya in reach. Bed alarm in place. Will continue to monitor.
[2025-06-12] VITALS (12 sets, daily range): BP systolic 140–168; BP diastolic 75–108; BMI 20.1
[2025-06-12 05:31] LABS: Hematocrit 24.0 % (39.0-52.0); Hemoglobin 8.5 g/dL (13.0-18.0); Mean Corp Hgb Conc. 35.4 g/dL (33.0-37.0); Mean Corpuscular Volume 88.2 fL (80.0-94.0); Nucleated Red Blood Cells % 0 % (-); Platelet Count 227 10^3/uL (130-400); Red Cell Dist. Width 14.3 % (11.5-14.5)
[2025-06-12 06:03] LABS: ALT (SGPT) 26 U/L (0-50); AST (SGOT) 33 U/L (17-59); Albumin 3.7 g/dl (3.5-5.0); Alkaline Phosphatase 104 U/L (38-126); Blood Urea Nitrogen 85 mg/dl (9-20); Calcium 8.9 mg/dl (8.4-10.2); Carbon Dioxide 23 mmol/L (22-30); Chloride 98 mmol/L (98-107); Estimated Creatinine Clearance 12 ml/min; Glucose 117 mg/dl (70-99); Magnesium 2.6 mg/dl (1.6-2.3); Potassium 3.4 mmol/L (3.5-5.1); Sodium 134 mmol/L (135-145); Total Protein 6.4 g/dl (6.3-8.2); eGFR 16.98
[2025-06-12 06:42] LABS: Troponin I 0.217 ng/ml
[2025-06-12] MEDS: DUONEB 3 ML INH ×4 (08:02→19:14)
[2025-06-12] MEDS: TOPROL XL 50 MG PO (10:32)
[2025-06-12] MEDS: ZITHROMAX 250 MG PO (10:32)
[2025-06-12] MEDS: PROTONIX 20 MG PO (10:33)
[2025-06-12] MEDS: REFRESH CELLUVISC GEL 1 DROPS BOTH EYES ×2 (10:33→20:58)
[2025-06-12] MEDS: HEPARIN 5000 UNITS SC ×3 (10:33→23:26)
[2025-06-12] MEDS: VISBIOME 1 CAP PO (10:33)
[2025-06-12] MEDS: DELTASONE 30 MG PO (10:33)
[2025-06-12] MEDS: PRED FORTE 1% EYE DROPS 1 DROP BOTH EYES ×2 (10:34→20:58)
[2025-06-12] MEDS: LASIX 80 MG IV ×2 (10:34→16:06)
[2025-06-12] MEDS: VOLTAREN BOTH EYES ×4 (10:35→20:58)
[2025-06-12] MEDS: EYE BOTH EYES ×4 (10:35→20:58)
--- NOTE | 2025-06-12 10:38 | W.PN.PUL3 ---
Today's Communication / Plan
-
- Chest x-ray improving with diuresis, not suggestive of pneumonia
- Resume home dose of azithromycin, can DC steroids
- Pulmonary team will sign off, please call as needed
Assessment
-
Patient is a very pleasant 85-year-old gentleman with known history of COPD, heart failure with preserved ejection fraction, A-fib presented to the hospital with worsening shortness of breath. Patient reportedly symptomatic over the last few days
with professed severely worsening shortness of breath. No significant cough or purulent expectoration reported. Patient reportedly had an outpatient x-ray which was suggestive of pneumonia and was sent to emergency room for further evaluation and
treatment. Imaging in the emergency room was suggestive of bilateral pulmonary edema. Patient was admitted to IMU and overnight required briefly BiPAP and then was transition to supplemental oxygen. In view of respiratory failure, pulmonary
consultation was requested for further input.
#1. Acute hypoxic respiratory failure, suspect pulmonary edema
- Follow-up imaging on 06/12 after more aggressive diuresis with improving opacities consistent with resolving pulmonary edema
- Continue IV diuresis, cardiology and nephrology service on case, wean oxygen as tolerated
- Continue O2 support as needed, continue diuresis per cardiology/nephrology service.
- Discontinued Zosyn as acute bacterial pneumonia appears to be less likely. No fever, no purulent expectoration. If patient develops any signs or symptoms of infection, can resume Zosyn
- Continue azithromycin that patient has been on chronically for underlying COPD
- Patient required BiPAP briefly after admission, since has been transition to nasal cannula. Currently appears comfortable, continue nasal cannula. Can use BiPAP on an as needed basis
- Pulmonary team will sign off, please call as needed
#2. History of COPD.
- Increased wheezing could certainly be 'cardiac asthma', related to volume overload. 06/11, no wheezing noted this AM.
- Continue diuresis
- Agree with continuing DuoNebs and short-term prednisone. Will favor no more than 5 days of steroid therapy
- Continue p.o. azithromycin (Home dose)
#3. Acute on chronic heart failure, patient has decreased ejection fraction, LVEF 41%
- With elevated renal function, signs of volume overload, concerning for cardiorenal syndrome
- Management per nephrology and cardiology service
Other medical diagnoses:
- MACHELLE with underlying chronic kidney disease, suspect cardiorenal syndrome
- Atrial fibrillation, chronic
- History of coronary artery disease, s/p coronary artery bypass graft
- Hypertension, hyperlipidemia
- Peripheral vascular disease
- History of smoking
- Prior history of GI bleed
- History of aspiration in the past
- Mild troponin leak.
Total time spent on this consultation/encounter __35__ minutes which includes review of history, physical exam, medications, laboratory data, personal review of imaging, extensive review of outpatient records, discussion with care team and
respiratory therapy.
Data:
ECHO 05/2025: 1. Left ventricular ejection fraction is mildly reduced with an ejection fraction of 41 % by Cheema's biplane method of discs.
2. Mild to moderate mitral valve regurgitation.
3. Compared to the prior on 07/13/2023, the systolic function has reduced from 60-65% to 41 %.
Subjective Data
-
Date of Service:
Date of Service: June 12, 2025
Subjective:
Comfortably sitting in bed in no acute distress, currently eating breakfast.
Review of Systems
Genitourinary: Other (All 14 systems reviewed and negative except as stated above in the history of present illness.)
Objective Data
Data Reviewed
Vital Signs / I&O / Oxygen:
Vital Signs
Temp Pulse Resp BP Pulse Ox
97.7 F 102 24 140/78 96
06/12/25 07:51 06/12/25 10:32 06/12/25 08:03 06/12/25 10:32 06/12/25 08:03
Intake and Output
06/11/25 06/12/25 06/13/25
06:59 06:59 06:59
Intake Total 490 / 490
Output Total 1335 / 1335 990 / 990
Balance -1335 / -1335 -500 / -500
SaO2 96
Nasal Cannula flow liters per 4
minute
Physical Exam
General: Comfortable
HEENT: Normocephalic
Cardiovascular: S1-S2
Respiratory: Rhonchi
GI: Soft and Non Distended
Neurology: Awake and Alert
Skin: Warm
Labs/Micro/Reports
Lab Data
06/12/25 04:20
06/12/25 04:20
Microbiology
06/09/25 22:45 Blood/Venous Blood Culture - Preliminary
No Growth in 48 hours- Final report to follow
06/09/25 22:45 Blood/Venous Blood Culture - Preliminary
No Growth in 48 hours- Final report to follow
06/10/25 09:43 Nose MRSA Screen - Final
No Methicillin Resistant Staphylococcus aureus isolated.
06/10/25 13:46 Urine Legionella Urinary Antigen - Final
Negative for Legionella pneumophila Serogroup 1 antigen.
A negative result does not rule out the possiblity of
Legionella infection due to other serogroups or species of
Legionella. Clinical correlation is recommended.
06/10/25 13:46 Urine Streptococcus pneumoniae Antigen (M - Final
Negative for Streptococcus pneumoniae antigen.
A negative result does not exclude infection with
Streptococcus pneumoniae. Clinical correlation is
recommended.
06/09/25 23:43 Nasal Swab Influenza Types A & B (ANDRE) - Final
Negative for Influenza A & B, NAAT
Negative results must be combined with clinical observations
and patient history.
Nucleic Acid Amplification test (NAAT)performed on the
[employer] platform.
[2025-06-12] MEDS: KCL 40 MEQ PO (12:10)
--- NOTE | 2025-06-12 12:39 | W.PN.CD ---
Today's Communication / Plan
-
IV lasix
Impression / Plan
-
85 y/o male (patient of Dr. Andrews- [facility] - last seen December 2022 with hypertension, hyperlipidemia, CKD, COPD, CAD with hx CABG 2006, PAD with hx b/l carotid endarterectomies, PAF (per review of hospitalist notes from 08/2023- not on AC due to
anemia/Traumatic retroperitoneal and iliopsoas hematoma/GIB/duodenal ulcer- requiring 7 units PRBC's)- ASA/Plavix stopped that admit- also felt to have volume overload that admit (iatrogenic- sepsis and anemia received fluids and blood products) and
also had Type II NH that admit, and deafness who is here for SOB. Found to have acute hypoxic respiratory failure and reduced EF.
Acute hypoxic respiratory failure
- Multifactorial due to acute CHF exacerbation, COPD, and possible atypical pneumonia
- Wean supplemental O2 as tolerated
- Continue with antibiotics for pneumonia and short-term steroids for COPD. Pulmonary is consulted
- Management of CHF as below
Acute HFrEF
- Severe exacerbation requiring IV diuresis and close monitoring of labs and telemetry
- TTE 06/10/2025: LVEF 41%, global hypokinesis, mild/moderate mitral regurgitation
- Continue with 80 mg IV Lasix bid
- Weight in 2022 was 100-105 pounds. He is currently 129 pounds.
- GDMT:
- Switched diltiazem to metoprolol succinate 50 mg daily
- Other GDMT (TICO/ARB/ARNI, SGLT2 inhibitor, MRA) currently limited by renal function
MACHELLE on CKD:
-cardiorenal syndrome
-nephrology is consulted
Parox AFib: per chart
-currently stable in SR. There is some AT/SVT, but no afib on monitor noted this admit. Some strips with blocked PAC's and junctional beats.
-[id number] score is at least 5 for age, HTN, CHF, and CAD. Notes reviewed and not on AC due to hx of severe bleeding as noted above.
-Diltiazem switched to metoprolol given HFrEF
CAD with hx CABG 2007:
-denies any CP
Abnormal troponin:
-due to acute, non-ischemic myocardial injury in setting of CHF, MACHELLE. Peak 0.173
-no CP
Hx PAD with surgery
.
Physical Exam
Vital Signs/Labs
Vital Signs
Temp Pulse Resp BP Pulse Ox
98.7 F 102 16 165/108 95
06/12/25 11:14 06/12/25 12:14 06/12/25 12:14 06/12/25 12:14 06/12/25 12:00
06/11/25 06/12/25 06/13/25
06:59 06:59 06:59
Actual Weight 54.8 kg
06/12/25 04:20
06/12/25 04:20
Magnesium 2.6 mg/dl (1.6-2.3) H 06/12/25 04:20
Triglycerides 92 mg/dl (10-149) 06/10/25 03:25
LDL Cholesterol, Calc 111 mg/dl 06/10/25 03:25
VLDL Cholesterol, Calc 18 mg/dl (0-30) 06/10/25 03:25
HDL Cholesterol 50 mg/dl 06/10/25 03:25
06/09/25
21:23
Trn-F-Fdxlpqllzbg Pept > [id number]
LAB Results
06/09/25 06/10/25 06/10/25
21:23 01:03 06:06
Troponin I 0.121 H* 0.127 H* 0.148 H*
06/10/25 06/10/25 06/10/25
13:07 13:42 19:40
Troponin I Cancelled 0.173 H* Cancelled
06/10/25 06/11/25 06/11/25
23:03 03:40 11:40
Troponin I 0.168 H* Cancelled Cancelled
06/11/25 06/12/25 06/12/25
19:40 04:20 11:40
Troponin I Cancelled 0.217 H* Cancelled
Physical Exam
Cardiovascular: Rhythm & rate is regular, JVD present and Systolic murmur present
Respiratory: Labored respirations
Neuro/Psych: Other (lethargic)
Data Reviewed
-
Date of Service: June 12, 2025
EKG: Other (Tele: SR 90s)
Labs: Labs Reviewed by me
--- NOTE | 2025-06-12 13:09 | W.CON.PAL ---
Consultation
-
Date/Time Consultation Requested: 06/12
Date/Time Consultation Performed: 06/12
Performing Provider: Sherrie Post
Reason for Consult: Goals of Care Discussion
Reason for Admission
Illness Course/HPI
85 year old M with CHF, COPD, CKD admitted with increased shortness of breath and b/l le edema. Admitted for management of CHF exacerbation. Required bipap for a short time then transitioned to NC. Has been getting diuresed but now with worsenign
renal function. He is not an HD candidate. LTC resident at [place]. Discussion with daughter about grim prognosis from nephrology and primary team.
Seen at bedside with daughter present. Patient awake, but dozing off easily. Seems confused. Spoke with daughter about goals and worsening renal function and about progression of disease. She understands how sick he is, but patients son is a bit
more hesitant. Questioning if he can recover again. Discussed that while he may be able to recover from this acute phase of his illness, big picture will be difficult to get back to a baseline and may end up back in the hospital very quickly. She
requested a medical update from team to talk with her and her brother.
Received message from team that medical update was provided. Please see A/P for details.
Objective Data
-
Objective Data:
Vital Signs
Temp Pulse Resp BP Pulse Ox
98.7 F 102 16 165/108 95
06/12/25 11:14 06/12/25 12:14 06/12/25 12:14 06/12/25 12:14 06/12/25 12:00
Laboratory Results
06/12/25 04:20
06/12/25 04:20
Total Protein 6.4 g/dl (6.3-8.2) 06/12/25 04:20
Albumin 3.7 g/dl (3.5-5.0) 06/12/25 04:20
Urine Color Yellow 06/10/25 Unknown
Urine Clarity Clear (Clear) 06/10/25 Unknown
Urine pH 5.0 (5.0-9.0) 06/10/25 Unknown
Ur Specific [place] 1.010 (<1.030) 06/10/25 Unknown
Urine Ketones Negative (Negative) 06/10/25 Unknown
Urine Occult Blood 2+ (Negative) A 06/10/25 Unknown
Urine Nitrite Negative (Negative) 06/10/25 Unknown
Urine Bilirubin Negative (Negative) 06/10/25 Unknown
Ur Leukocyte Esterase Negative (Negative) 06/10/25 Unknown
Urine Albumin 3+ (Neg - Trace) A 06/10/25 Unknown
Palliative Performance Scale
Palliative Performance Scale:
PPS Level Ambulation Activity & Evidence of Disease Self Care Intake Conscious Level
100% Full Normal Activity & Work; Full Intake Full
No Evidence of Disease
90% Full Normal Activity & Work; Full Normal Full
Some Evidence of Disease
80% Full Normal Activity with Effort Full Normal or Full
Some Evidence of Disease Reduced
70% Reduced Unable Normal Job/Work Full Normal or Full
Significant Disease Reduced
60% Reduced Unable Hobby/Housework Occasional Normal or Full or Confusion
Significant Disease Assistance Reduced
50% Mainly Sit/Lie Unable to do Any Work Considerable Normal or Full or Confusion
Extensive Disease Assistance Req'd Reduced
40% Mainly in Bed Unable to do Most Activity Mainly Assistance Normal or Full or Drowsy;
Extensive Disease Reduced +/- Confusion
30% Totally Bed Unable to do Any Activity Total Care Normal or Full or Drowsy;
Bound Extensive Disease Reduced +/- Confusion
20% Totally Bed Bound Unable to do Any Activity Total Care Minimal to Full or Drowsy;
Extensive Disease Sips +/- Confusion
10% Totally Bed Bound Unable to do Any Activity Total Care Mouth Care Drowsy or Coma;
Extensive Disease Only +/- Confusion
0%
PPS Score Level:
Palliative Performance Score Response
Palliative Performance Score Response: 40%
Physical Exam
-
General: Appears Chronically Ill
HEENT: Normocephalic
Cardiac: Regular Rhythm
Peripheral Vascular: No Edema
GI: Soft
Neuro: Awake
Assessment / Plan
-
Assessment/Plan:
85 year old M with cardiomyopathy and cardiorenal syndrome, not an HD candidate
SPoke with patients daughter again after initial conversation and after update from team. Seems as though they are leaning towards palliative care and not hospice but really seems more appropriate for hospice at this time. She is going to talk more
with her brother over the weekend about this. Patient is a LTC resident at [place] and palliative does not go into facilities. If they want palliative care, would need CM to look into if [place] has an outside agency who provides palliative care services.
Otherwise, patient is appropriate for hospice care back at facility if desired.
Care Reviewed
Data Reviewed
Radiology procedure: Report Reviewed
Medical Tests: I reviewed
Reviewed with: Patient, Family and Physician
--- NOTE | 2025-06-12 13:51 | PTCARENOTE ---
Patient remains on 5L midflow, dyspneic on exertion, oob x1 to chair. Pt's daughter came to bedside and asked RN to reach out to hospitalist team for a goals of care discussion with her and pt's son (Brian) on speaker phone. RN reached out to MD team
with this request. Pt voiding in urinal, sometimes incontinent, ate almost all breakfast. RN reviewed lab work and imagining results with daughter at bedside. RN provided education on heart failure to daughter.
--- NOTE | 2025-06-12 14:14 | PTCARENOTE ---
Reached out to hospitalist team about discontinuing aspiration risk hydration protocol now that patient is eating meals, also asked about discontinuing other troponin orders since note from yesterday says to stop them. MD Foss told RN can d/c
11:40 troponin earlier in shift.
--- NOTE | 2025-06-12 14:26 | PTCARENOTE ---
called report to receiving floor RN
--- NOTE | 2025-06-12 14:56 | W.PN.NEPH.PH ---
Today's Communication / Plan
-
Continuing diuresis
Assessment/Plan
-
Assessment:
Acute hypoxic respiratory failure on presentation
Acute CHD r EF 40% on echo
COPD exacerbation
Possible aspiration pneumonitis
MACHELLE with chronic kidney disease likely, stage IV-baseline creatinine 2.5 mg/DL
h/o Known SHIVA bilat
Hyponatremia
non gap met acidosis
Primary hypertension
Elevated LFTs
Anemia
CABG 2006
HLD
History of GI bleed
[place]
PAD -history of bilateral carotid endarterectomies 2017
Orthostatic hypotension
Plan:
He is likely still overloaded at this time
Continue diuresis
Follow BMP
Diuresis will be only limited by how rapid weight comes down.
He is not a dialysis candidate. This was discussed with the family previously
-
-
Date of Service: June 12, 2025
CC / HPI / ROS
-
Chief Complaint:
Follow-up MACHELLE with CKD, hyponatremia, metabolic acidosis
History of Present Illness:
Na down to 134
MACHELLE/creatinine up to 3.4
Remains with high oxygen requirements
non oliguric
Review of Systems:
difficult to communicate with YER[place]
no pain
Labs
-
Labs:
WBC 15.6 10^3/uL (4.8-10.8) H 06/12/25 04:20
RBC 2.72 10^6/uL (4.70-6.10) L 06/12/25 04:20
Hgb 8.5 g/dL (13.0-18.0) L 06/12/25 04:20
Hct 24.0 % (39.0-52.0) L 06/12/25 04:20
Plt Count 227 10^3/uL (130-400) 06/12/25 04:20
Sodium 134 mmol/L (135-145) L 06/12/25 04:20
Potassium 3.4 mmol/L (3.5-5.1) L 06/12/25 04:20
Chloride 98 mmol/L (98-107) 06/12/25 04:20
Carbon Dioxide 23 mmol/L (22-30) 06/12/25 04:20
BUN 85 mg/dl (9-20) H 06/12/25 04:20
Creatinine 3.4 mg/dL (0.7-1.3) H 06/12/25 04:20
eGFR 16.98 06/12/25 04:20
Glucose 117 mg/dl (70-99) H 06/12/25 04:20
Calcium 8.9 mg/dl (8.4-10.2) 06/12/25 04:20
Rmt-F-Znawzhvafuu Pept > 02365 pg/ml 06/09/25 21:23
Albumin 3.7 g/dl (3.5-5.0) 06/12/25 04:20
Physical Exam
-
Vital Signs:
Vital Signs
Temp Pulse Resp BP Pulse Ox
98.7 F 102 16 165/108 95
06/12/25 11:14 06/12/25 12:14 06/12/25 12:14 06/12/25 12:14 06/12/25 12:00
Cardiovascular:: Regular rate and rhythm
Respiratory:: Bilateral: Coarse
Lung Excursion:: Normal
Abdomen:: Nontender and Soft
Bowel Sounds:: Normal
Extremity Edema:: +1: Bilateral:
--- NOTE | 2025-06-12 14:58 | W.PN.HOSP.TC ---
Addendum entered and electronically signed by Donnie Jerome MD 06/12/25 21:30:
Attending Addendum-
I saw and evaluated the patient. I reviewed the resident�s note and agree with findings and plan as documented in the resident�s note. Sub: patient is deaf. able to read lips. sob improved. Denies fevers chills CP palps. Full 12 point ROS reviewed
and negative except as documented Exam: Vitals reviewed in chart GEN-NAD heart RRR 3/ SM @ apex, lungs crackles at bases. abd soft NT ND pos BS LE no edema
Plan:
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
#NIMI
-improved
-cont ne metoprolol per cards, DC cardizem
-daily weights, I & Os weights coming down
-Cardiology input appreciated
-ECHO 06/10-Compared to the prior on 07/13/2023, the systolic function has reduced from 60-65% to 41%.
-cont IV Lasix 80mg daily->BID
-unable to start GDMT/SGLT2i due to worsening kidney fx
#COPD exacerbation-mild
#Possible aspiration pneumonitis : HX Severe aspiration syndrome
-resolved
-cont nebs, cont chronic azithro
-DC Prednisone
-apprec pulmonary input
-speech eval - VFSS 06/11 no aspiration- restart diet
-leukocytosis likely from inflammation and stress- trend cbc
# Hyponatremia- Hypervolemic
- resolved
- cont diuresis, fluid restrict
- repeat BMP in am
#MACHELLE on CKD 3b
-baseline cr @ 2.5
-worsening
-cardiorenal syndrome, monitor I and O closely
-trend BMP
-nephrology input appreciated
-cont aggressive diuresis
-not a candidate for HD- d/w patient and family
#Hypokalemia-replete repeat BMP in am
# Acute Hypoxemic Respiratory Failure
- CXR personally reviewed-improved CHF
- from CHF exacerbation
- was on bipap->NC
- cont to diurese
- wean for o2 sat > 92%
#Atrial fibrillation
-dc diltiazem, not on AC on admission due to bleeding risk
- cont metoprolol per cards
#CAD-s/p CABG
#GERD- cont pantoprazole
#HTN
#HLD
#PVD
Code status: DNR (per [place] paperwork) ->FULL -> DNR
DVT prophylaxis: heparin sq
Dispo Form [facility]- d/w CM awaiting auth dc back on pall care with eventual transition to hospice
ACP
Patient consented to discuss, lengthy conversation hgad with family, time spent explanation of advance directives, changes in health status, patient�s health care wishes if the patient becomes unable to make health decisions, goals of care, code
status, patient with poor prognosis family in agreement would like to place patient on palliative care and change code status back to DNR, not ready for hospice yet - 16 minutes
Time spent coordinating care, review of plan of care with resident, personally reviewed previous records in EMR, med rec, labs, radiology, d/w nursing, family total time documented is exclusive of any additional time listed that was spent in advance
care planning discussion -�51 minutes
Original Note:
Today's Communication/Plan
-
Continue Diuresis
Diltiazem switched to Metoprolol
Continue with 80 mg IV Lasix BID
Resume home dose of Azithromycin, can D/C steroids
Continue to address his families concerns of next steps and the options via Palliative care.
Assessment / Plan
Assessment / Plan
Impression:
85-year-old male from [facility] presented to ED on 06/09/2025 with complaints of acute shortness of breath. Patient chest x-ray revealed bilateral infiltrates suggestive of possible pneumonia. Has low-grade fever and elevated
white blood cell count. Past medical history of CHF plus current symptoms could be initial signs of pneumonia. Exhibits rales at the bilateral bases and pulmonary vascular congestion via imaging. proBNP elevated at 27,000 suggesting cardiac
stress. Troponin levels are elevated indicating possible cardiac stress or injury. Experiencing renal failure with creatinine elevated to 2.6 from baseline suggesting worsening renal function. As of (06/11/2025): Patient is tachycardia and
tachypneic. 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 His most recent Echo illustrates a EF from 60-65% down to 41%. Speech therapy had initially evaluated the patient and determined he might be a high aspiration risk so they
advised for him to be put on n.p.o. until further notice. (06/11/2025): In the morning they conducted a VSE procedure that illustrated that Mr. Stokes was in fact not high aspiration risk. His diet was changed back to full solids and thin liquids,
and his medications that originally were converted from p.o. to IV, will convert back to p.o. His chest x-ray from today compared with the prior x-ray illustrated, much worse his CHF again. The decision was made to put him on 80 mg IV Lasix twice
daily to try to help with the diuresis. Patient's daughter was notified and she came to talk to the hospitalist team. She was educated on the topic of CHF as it relates to kidney function. Her brother was also listening on the call. The family was
given a brief update of the situation and reconfirmed their fathers full code status. I explained how his worsening CHF and renal function were connected and the steps we're taking to help treat these issues. Family understands he is not a candidate
for hemodialysis and would have a poor quality of life. Will update daughter tomorrow on her fathers condition. As of (06/12/2025): an updated Chest X Ray illustrated mild improvement in pulmonary edema, however, as his CHF starts to improve, his
kidney function as evidenced by an increase in creatinine from 3.2 to 3.4 is starting to show the pressure the kidneys are under and how they are being impacted. Patients daughter and son (via phonecall) were brought in to discuss comfort or
palliative care.
Plan:
#Acute on chronic HFpEF
proBNP greater than 27,000
Nonischemic myocardial injury, chronically elevated troponin likely secondary to CHF
Check daily weights 59.8 --58.8--58.8--54.8 (patient dropped 4 kg in the last day)
Consult Cardio (find out patients dry weight)
I&O's:490 ml intake, 990 mL output
Echo: Previous in 2022 illustrated EF equals 60 to 65%
Echo: From morning of 06/11/2025: EF equals 41%
Cardiology consulted
Metoprolol was started
IV Lasix 80 mg was changed from daily to BID to aid with the diuresis.
#COPD exacerbation
#Possible aspiration pneumonitis: History of severe aspiration syndrome
WBC 17.9��16.9--16.6--15.6, neutrophil 79.2--89.4
DuoNeb as needed
Continue Azithromycin 250 mg PO Daily
IV Decadron to Prednisone 30 mg for 3 more days
Diet was restarted as per advice of speech therapy team
#Hyponatremia - Hypervolemic
Resolved
Continue diuresis
Fluid restriction
#CKD��stage IV
#Cardiorenal syndrome with urinary retention, (PVR 333 cc)
Creatinine 3.2--3.4 (baseline @2.5)
Bladder scan/straight cath protocol:
Consult Palliative Care
#Acute Hypoxemic Respiratory Failure
via CHF exacerbation
Was on BiPAP, now on Nasal cannula
Wean for O2 sat >92%
#Atrial fibrillation
Metoprolol
#Anemia
H&H is stable
#CAD
S/P CABG
#Hypertension
#Hyperlipidemia
#PVD
DVT PPx: SQH
CODE STATUS: Full code (his daughter supports his wish and is his POA)
Anticipated Discharge: 24 - 48 hours
Subjective/Interval History
-
Date of Service: June 12, 2025
Overnight Events: As per nurse, when patient tries to maneuver from his hospital bed to his chair and back, he becomes even more tachypneic and his O2 sats drop to around 82%.
Objective Data
-
Labs:
Laboratory Results
06/12/25
04:20
WBC 15.6 H
Hgb 8.5 L
Hct 24.0 L
Plt Count 227
Sodium 134 L
Potassium 3.4 L
Chloride 98
Carbon Dioxide 23
BUN 85 H
Creatinine 3.4 H
Glucose 117 H
Calcium 8.9
Total Bilirubin 0.6
AST 33
ALT 26
Alkaline Phosphatase 104
Vital Signs:
Vital Signs
Temp Pulse Resp BP Pulse Ox
98.7 F 102 16 165/108 95
06/12/25 11:14 06/12/25 12:14 06/12/25 12:14 06/12/25 12:14 06/12/25 12:00
I&O
06/11/25 06/12/25 06/13/25
06:59 06:59 06:59
Intake Total 490 / 490 240 / 240
Output Total 1335 / 1335 990 / 990 400 / 400
Balance -1335 / -1335 -500 / -500 -160 / -160
Chest X Ray (06/09/2025):IMPRESSION: Findings most consistent with congestive heart failure.
Chest X Ray (06/11/2025):IMPRESSION: Worsening CHF
Chest X Ray (06/12/2025):IMPRESSION: Improvement in Pulmonary Edema
EKG (06/09/2025): SINUS TACHYCARDIA Poor R-wave progression ; consider anterior infarct, lead placement, or normal variant
Echo (06/10/2025):Compared to the prior on 07/13/2023, the systolic function has reduced from 60-65% to 41 %.
Review of Systems
-
Unable to obtain full review of systems at this time due to: Patient Non-verbal (He is deaf)
History Source: Patient and Family
All other systems: Reviewed and negative
Respiratory: Reports Cough and Other (Mild fine crackles heard at base of lungs)
Psych: Reports Anxious
Physical Exam
-
General: Well Developed and Well Nourished
HEENT: Normocephalic, Atraumatic and Other (Hearing impairment)
Respiratory: Crackles (Fine crackles can be appreciated at the lung bases)
Cardiac: Regular Rhythm, S1/S2 and Murmur (Systolic murmur at the apex)
Breast: Deferred by me
GI: Soft, Nontender and Nondistended
Musculoskeletal: No Clubbing, No Cyanosis and No Edema
Neuro: Awake and Alert
Psych: Anxious
Data Reviewed
-
Diagnostic Radiology: Report Reviewed by me
Medical Tests (Nuc Med, Echo etc): Report Reviewed by me and Discussed with Physician
Labs: Labs Reviewed by me and Discussed with Physician
--- NOTE | 2025-06-12 15:06 | PTCARENOTE ---
Received pt from IMU via stretcher. Stretcher pulled in next to bed, pt ambulated to bed with assist x2. 5L O2 in place. MELGAR. laboratory monitor placed. AAOx3, deaf bilaterally. Bed alarm placed and plugged in. Assessed and oriented to room. Pt able
to read lips. Will continue to monitor.
--- NOTE | 2025-06-12 15:59 | CM ---
Spoke with admissions at [facility]. Patient will need an insurance auth upon discharge to return to [place]. [facility] will accept with a pending reference #.
[2025-06-12] MEDS: XALATAN OPHTHALMIC SOLUTION 1 DROP BOTH EYES (18:13)
[2025-06-13] VITALS (7 sets, daily range): BP systolic 154–171; BP diastolic 86–95; PULSE 2–70; BMI 20.5
[2025-06-13] MEDS: DUONEB 3 ML INH ×4 (08:18→20:20)
[2025-06-13 08:42] LABS: Hematocrit 28.8 % (39.0-52.0); Hemoglobin 9.3 g/dL (13.0-18.0); Mean Corp Hgb Conc. 32.3 g/dL (33.0-37.0); Mean Corpuscular Volume 96.0 fL (80.0-94.0); Platelet Count 214 10^3/uL (130-400); Red Cell Dist. Width 14.6 % (11.5-14.5)
[2025-06-13] MEDS: HEPARIN 5000 UNITS SC ×3 (08:54→23:45)
[2025-06-13] MEDS: LASIX 80 MG IV (08:54)
[2025-06-13] MEDS: ZITHROMAX 250 MG PO (08:54)
[2025-06-13] MEDS: PROTONIX 20 MG PO (08:55)
[2025-06-13] MEDS: EYE BOTH EYES ×4 (08:56→20:56)
[2025-06-13] MEDS: TOPROL XL 50 MG PO (08:56)
[2025-06-13] MEDS: VISBIOME 1 CAP PO (08:56)
[2025-06-13] MEDS: PRED FORTE 1% EYE DROPS 1 DROP BOTH EYES ×2 (08:56→20:56)
[2025-06-13] MEDS: VOLTAREN BOTH EYES ×4 (08:56→20:56)
[2025-06-13] MEDS: REFRESH CELLUVISC GEL 1 DROPS BOTH EYES ×2 (08:58→20:56)
[2025-06-13 09:39] LABS: Blood Urea Nitrogen 106 mg/dl (9-20); Calcium 8.9 mg/dl (8.4-10.2); Carbon Dioxide 21 mmol/L (22-30); Chloride 99 mmol/L (98-107); Estimated Creatinine Clearance 11 ml/min; Glucose 105 mg/dl (70-99); Potassium 3.8 mmol/L (3.5-5.1); Sodium 132 mmol/L (135-145); eGFR 14.86
--- NOTE | 2025-06-13 09:46 | PTCARENOTE ---
Lab informed this RN of critical BUN value, trffcg=258. made aware.
--- NOTE | 2025-06-13 09:57 | W.PN.HOSP.TC ---
Today's Communication/Plan
-
Hold lasix today -patient looks dry on assessment
if leukocytosis persists in AM, might be reasonable for CT chest
Assessment / Plan
Assessment / Plan
85yo M with HTN, HLD, CKD, COPD, HFpEF, afib, CAD, PAD, deafness came with SOB, managed for acute HFpEF exacerbation and possible COPD exacerbation complicated by worsening cardiorenal syndrome, while patient not a candidate for HD
A/P:
#Acute on chronic combined CHF exacerbation
#Non-ischemic myocardial injury 2/2 CHF, hypoxia, MACHELLE
#CAD stable s/p CABG
#Afib, unspecified
no chest pain, cardiology not concerning for ACS
Not on anticvoagultion due to bleeding risk
Lasix, daily weight, follow electrolytes, Cr
Cardio consult
Echo: EF 41%, mild-moderate MR, left ventricular wall motion is diffusely hypokinetic. Stage I diastolic dysfunction suggestive of abnormal relaxation
#Acute COPD exacerbation on admisison
#Pneumonia ruled out
COVID-19 and influenza neg
Pulmonary consult
cont bronchodilators
Completed prednisone taper
Abx stopped and CXR improved with diuresis without overt signs of pneumonia as agreed with [employer]
Cont chronic Azithromycin
#Leukocytosis
2/2 recent steroids
No fever
follow CBC off Abx
#Acute hypoxic respiratory failure 2/2 above
wean off O2 as able
#MACHELLE on CKD stage 3b 2/2 cardiorenal syndrome
#Hyponatremia
Nephrology consult: agreed with diuresis
not candidate for HD
follow BMP
#Anemia
anemia w/u
check FOBT
Hx of retroperitoneal hematoma nd GIB in 2023, s/p massive blood transfusion
#PVD
#HLD
#GERD
#Essential HTN
cont home meds, when able
#GOC
due to worsening MACHELLE and not being candidate for HD - reasonable to offer hospice
Pending family decision, who whould like to see if things will improve
DVT ppx hep
DNR/DNI
I have spent at least 59min reviewing chart, test results, communication with consultants and providing direct patient care
Anticipated Discharge: > 48 hours
Subjective/Interval History
-
Date of Service: June 13, 2025
Objective Data
-
Labs:
Laboratory Results
06/13/25
08:17
WBC 15.8 H
Hgb 9.3 L
Hct 28.8 L
Plt Count 214
Sodium 132 L
Potassium 3.8
Chloride 99
Carbon Dioxide 21 L
BUN 106 H*
Creatinine 3.8 H
Glucose 105 H
Calcium 8.9
Vital Signs:
Vital Signs
Temp Pulse Resp BP Pulse Ox
97.6 F 90 16 171/91 98
06/13/25 07:00 06/13/25 08:54 06/13/25 08:20 06/13/25 08:54 06/13/25 08:20
I&O
06/12/25 06/13/25 06/14/25
06:59 06:59 05:59
Intake Total 490 / 490 480 / 480
Output Total 990 / 990 500 / 500
Balance -500 / -500 -20 / -20
Review of Systems
-
History Source: Patient
All other systems: Reviewed and negative
Physical Exam
-
HEENT: Deaf
Respiratory: Clear to Auscultation
GI: Soft, Nontender and Nondistended
Musculoskeletal: No Clubbing, No Cyanosis and No Edema
Skin: Dry
Neuro: Awake, Alert, Oriented and AO x 3
Psych: Calm
[2025-06-13 10:08] LABS: Reticulocyte Count 2.5 % (0.4-2.8)
[2025-06-13 10:39] LABS: Iron 129 ug/dl (49-181); LDH 348 U/L (120-246); Total Iron Binding Capacity 208 ug/dl (261-462)
[2025-06-13 12:28] LABS: Ferritin 641.0 ng/ml (17.9-464.0)
[2025-06-13 13:00] LABS: Folate 12.1 ng/ml (2.76-20); Vitamin B12 801 pg/ml (239-931)
--- NOTE | 2025-06-13 13:54 | W.PN.NEPH.PH ---
Today's Communication / Plan
-
RHC
Assessment/Plan
-
Assessment:
Acute hypoxic respiratory failure on presentation
Acute CHD r EF 40% on echo
COPD exacerbation
Possible aspiration pneumonitis
MACHELLE with chronic kidney disease likely, stage IV-baseline creatinine 2.5 mg/DL
h/o Known SHIVA bilat
Hyponatremia
non gap met acidosis
Primary hypertension
Elevated LFTs
Anemia
CABG 2006
HLD
History of GI bleed
NEWTOK
PAD -history of bilateral carotid endarterectomies 2017
Orthostatic hypotension
Plan:
volume status difficult
overall weight is lower however
Follow BMP
holding lasix for now, he is overall stable
recommend RHC to determine volume status
however, overall prognosis is poor given that we have come to this point.
He is not a dialysis candidate. This was discussed with the family previously
-
-
Date of Service: June 13, 2025
CC / HPI / ROS
-
Chief Complaint:
Follow-up MACHELLE with CKD, hyponatremia, metabolic acidosis
History of Present Illness:
Na down to 132
MACHELLE/creatinine up to 3.8
Remains with high oxygen requirements
non oliguric
Review of Systems:
difficult to communicate with NEWTOK
no pain
no SOB
Labs
-
Labs:
WBC 15.8 10^3/uL (4.8-10.8) H 06/13/25 08:17
RBC 3.00 10^6/uL (4.70-6.10) L 06/13/25 08:17
Hgb 9.3 g/dL (13.0-18.0) L 06/13/25 08:17
Hct 28.8 % (39.0-52.0) L 06/13/25 08:17
Plt Count 214 10^3/uL (130-400) 06/13/25 08:17
Sodium 132 mmol/L (135-145) L 06/13/25 08:17
Potassium 3.8 mmol/L (3.5-5.1) 06/13/25 08:17
Chloride 99 mmol/L (98-107) 06/13/25 08:17
Carbon Dioxide 21 mmol/L (22-30) L 06/13/25 08:17
BUN 106 mg/dl (9-20) H* 06/13/25 08:17
Creatinine 3.8 mg/dL (0.7-1.3) H 06/13/25 08:17
eGFR 14.86 06/13/25 08:17
Glucose 105 mg/dl (70-99) H 06/13/25 08:17
Calcium 8.9 mg/dl (8.4-10.2) 06/13/25 08:17
Suo-X-Hsiiwurfjof Pept > 21359 pg/ml 06/09/25 21:23
Albumin 3.7 g/dl (3.5-5.0) 06/12/25 04:20
Physical Exam
-
Vital Signs:
Vital Signs
Temp Pulse Resp BP Pulse Ox
97.6 F 82 16 166/95 97
06/13/25 11:00 06/13/25 11:33 06/13/25 11:33 06/13/25 11:00 06/13/25 11:33
Cardiovascular:: Regular rate and rhythm
Respiratory:: Bilateral: Coarse and Bilateral: Rales
Lung Excursion:: Normal
Abdomen:: Nontender and Soft
Bowel Sounds:: Normal
Extremity Edema:: None: Bilateral:
--- NOTE | 2025-06-13 16:15 | W.PN.CD ---
Today's Communication / Plan
-
Weight is down but creatinine up to 3.8. IV diuretic currently being held and monitor renal function.
Continue treatment of COPD and possible atypical pneumonia as directed by pulmonary and hospitalist.
Reviewed issues related to acute on chronic renal failure with nephrology. Right heart cath may be considered to further evaluate filling pressures/intravascular volume status.
Impression / Plan
-
85 y/o male (patient of Dr. Andrews- [facility] - last seen December 2022 with hypertension, hyperlipidemia, CKD, COPD, CAD with hx CABG 2006, PAD with hx b/l carotid endarterectomies, PAF (per review of hospitalist notes from 08/2023- not on AC due to
anemia/Traumatic retroperitoneal and iliopsoas hematoma/GIB/duodenal ulcer- requiring 7 units PRBC's)- ASA/Plavix stopped that admit- also felt to have volume overload that admit (iatrogenic- sepsis and anemia received fluids and blood products) and
also had Type II TX that admit, and deafness who is here for SOB. Found to have acute hypoxic respiratory failure and reduced EF.
Acute hypoxic respiratory failure
- Multifactorial due to acute CHF exacerbation, COPD, possible atypical pneumonia and possible other underlying pulmonary process
- Continue with antibiotics for pneumonia and short-term steroids for COPD. Pulmonary is consulted
- With diuresis creatinine has gone up to 3.8. Diuretic currently on hold.
- Will continue to assess. Monitor response off diuretics. Right heart catheterization may be considered.
.
Acute HFrEF
- TTE 06/10/2025: LVEF 41%, global hypokinesis, mild/moderate mitral regurgitation
- 80 mg IV Lasix bid now on hold with creatinine up to 3.8
- Weight 59.8 kg on admission now 55.9.
- GDMT:
- Switched diltiazem to metoprolol succinate 50 mg daily
- Other GDMT (TICO/ARB/ARNI, SGLT2 inhibitor, MRA) currently limited by renal function
- May consider use of hydralazine for additional treatment of hypertension and afterload reduction in this patient with cardiomyopathy
MACHELLE on CKD:
- Creatinine up to 3.8. Reviewed with nephrology diuretics currently being held.
Parox AFib: per chart
-currently stable in SR. There is some AT/SVT, but no afib on monitor noted this admit. Some strips with blocked PAC's and junctional beats.
-[id number] score is at least 5 for age, HTN, CHF, and CAD. Notes reviewed and not on AC due to hx of severe bleeding as noted above.
-Diltiazem switched to metoprolol given HFrEF
CAD with hx CABG 2006:
-denies any CP
Abnormal troponin:
-due to acute, non-ischemic myocardial injury in setting of CHF, MACHELLE. Peak 0.173
-no CP
Hx PAD with surgery
.
Physical Exam
Vital Signs/Labs
Vital Signs
Temp Pulse Resp BP Pulse Ox
98.2 F 88 16 169/94 97
06/13/25 15:00 06/13/25 15:46 06/13/25 15:46 06/13/25 15:00 06/13/25 15:46
06/12/25 06/13/25 06/14/25
06:59 06:59 05:59
Actual Weight 54.8 kg 55.962 kg
06/13/25 08:17
06/13/25 08:17
Magnesium 2.6 mg/dl (1.6-2.3) H 06/12/25 04:20
Triglycerides 92 mg/dl (10-149) 06/10/25 03:25
LDL Cholesterol, Calc 111 mg/dl 06/10/25 03:25
VLDL Cholesterol, Calc 18 mg/dl (0-30) 06/10/25 03:25
HDL Cholesterol 50 mg/dl 06/10/25 03:25
06/09/25
21:23
Rtu-A-Tfoibitxegb Pept > 05579
LAB Results
06/10/25 06/10/25 06/11/25
19:40 23:03 03:40
Troponin I Cancelled 0.168 H* Cancelled
06/11/25 06/11/25 06/12/25
11:40 19:40 04:20
Troponin I Cancelled Cancelled 0.217 H*
06/12/25 06/12/25
11:40 19:40
Troponin I Cancelled Cancelled
Physical Exam
Constitutional: No acute distress
Cardiovascular: Rhythm & rate is regular
Respiratory: Wheeze Absent, Rhonchi Absent and Other (Decreased at bases)
GI: Soft and Non tender
Neuro/Psych: Alert
Data Reviewed
-
Date of Service: June 13, 2025
Medical Decision Making: Reviewed Test Results
Echo: Report Reviewed by me
Medical Tests (PFT, Pathology etc): Report Reviewed by me
Labs: Labs Reviewed by me
--- NOTE | 2025-06-13 16:55 | PTCARENOTE ---
Blood pressure elevated, made aware, new order provided, see MAR. Will continue to monitor.
[2025-06-13] MEDS: APRESOLINE 10 MG PO ×2 (16:59→20:57)
[2025-06-13] MEDS: XALATAN OPHTHALMIC SOLUTION 1 DROP BOTH EYES (18:27)
[2025-06-14] VITALS (10 sets, daily range): BP systolic 144–180; BP diastolic 69–93; PULSE 2; BMI 19.6
[2025-06-14] MEDS: APRESOLINE 10 MG IV (03:31)
--- NOTE | 2025-06-14 03:35 | PTCARENOTE ---
Pt manual BP of 180/92 and HR of 87. ALEXANDR Mojica notified. One time dose of hydralazine ordered (see MAR). Plan of care ongoing.
[2025-06-14] MEDS: TOPROL XL 50 MG PO (05:21)
--- NOTE | 2025-06-14 05:41 | PTCARENOTE ---
Pt with BP of 176/98 and HR of 96 one hour after hydralazine given. ALEXANDR Mojica notified. Advised to give 0800 dose of metoprolol early (see MAR). Plan of care ongoing.
[2025-06-14 06:20] LABS: ALT (SGPT) 26 U/L (0-50); AST (SGOT) 24 U/L (17-59); Albumin 3.9 g/dl (3.5-5.0); Alkaline Phosphatase 96 U/L (38-126); Calcium 9.1 mg/dl (8.4-10.2); Carbon Dioxide 20 mmol/L (22-30); Chloride 101 mmol/L (98-107); Estimated Creatinine Clearance 11 ml/min; Glucose 113 mg/dl (70-99); Potassium 4.5 mmol/L (3.5-5.1); Sodium 134 mmol/L (135-145); Total Protein 6.9 g/dl (6.3-8.2); eGFR 14.86
[2025-06-14 06:35] LABS: Blood Urea Nitrogen 117 mg/dl (9-20)
[2025-06-14] MEDS: DUONEB 3 ML INH ×4 (07:11→18:07)
[2025-06-14 07:23] LABS: Hematocrit 29.2 % (39.0-52.0); Hemoglobin 10.1 g/dL (13.0-18.0); Mean Corp Hgb Conc. 34.6 g/dL (33.0-37.0); Mean Corpuscular Volume 86.9 fL (80.0-94.0); Nucleated Red Blood Cells % 0.4 % (-); Red Cell Dist. Width 14.3 % (11.5-14.5)
[2025-06-14] MEDS: APRESOLINE 25 MG PO ×3 (08:30→20:59)
[2025-06-14] MEDS: HEPARIN 5000 UNITS SC ×3 (08:30→23:27)
[2025-06-14] MEDS: ISORDIL 5 MG PO ×3 (08:31→20:59)
[2025-06-14] MEDS: REFRESH CELLUVISC GEL 1 DROPS BOTH EYES ×2 (08:31→20:57)
[2025-06-14] MEDS: PROTONIX 20 MG PO (08:31)
[2025-06-14] MEDS: ZITHROMAX 250 MG PO (08:31)
[2025-06-14] MEDS: VISBIOME 1 CAP PO (08:31)
[2025-06-14] MEDS: VOLTAREN BOTH EYES ×4 (08:32→23:25)
[2025-06-14] MEDS: PRED FORTE 1% EYE DROPS 1 DROP BOTH EYES ×2 (08:32→20:57)
[2025-06-14] MEDS: EYE BOTH EYES ×4 (08:32→23:25)
--- NOTE | 2025-06-14 10:23 | W.PN.HOSP.TC ---
Addendum entered and electronically signed by Adarsh Osullivan MD 06/14/25 11:49:
LDH minimally elevated, but MARILYN neg - no concern for acute hemolysis
Original Note:
Today's Communication/Plan
-
Hold lasix
Wean off O2
Labs in AM
possible RHC
Assessment / Plan
Assessment / Plan
85yo M with HTN, HLD, CKD, COPD, HFpEF, afib, CAD, PAD, deafness came with SOB, managed for acute HFpEF exacerbation and possible COPD exacerbation complicated by worsening cardiorenal syndrome, while patient not a candidate for HD
A/P:
#Acute on chronic combined CHF exacerbation
#Non-ischemic myocardial injury 2/2 CHF, hypoxia, MACHELLE
#CAD stable s/p CABG
#Afib, unspecified
no chest pain, cardiology not concerning for ACS
Not on anticvoagultion due to bleeding risk
Lasix, daily weight, follow electrolytes, Cr
Cardio consult: might consider RHC
Echo: EF 41%, mild-moderate MR, left ventricular wall motion is diffusely hypokinetic. Stage I diastolic dysfunction suggestive of abnormal relaxation
#Acute COPD exacerbation on admisison
#Pneumonia ruled out
COVID-19 and influenza neg
Pulmonary consult
cont bronchodilators
Completed prednisone taper
Abx stopped and CXR improved with diuresis without overt signs of pneumonia as agreed with Trekking Guide
Cont chronic Azithromycin
#Leukocytosis
2/2 recent steroids
No fever
follow CBC off Abx
#Acute hypoxic respiratory failure 2/2 above
wean off O2 as able
#MACHELLE on CKD stage 3b 2/2 cardiorenal syndrome
#Hyponatremia
Nephrology consult: agreed with diuresis
not candidate for HD
follow BMP
#Anemia
anemia w/u
check FOBT
Hx of retroperitoneal hematoma nd GIB in 2023, s/p massive blood transfusion
#PVD
#HLD
#GERD
#Essential HTN
cont home meds, when able
#GOC
due to worsening MACHELLE and not being candidate for HD - reasonable to offer hospice
Pending family decision, who whould like to see if things will improve
DVT ppx hep
DNR/DNI
I have spent at least 59min reviewing chart, test results, communication with consultants and providing direct patient care
Anticipated Discharge: > 48 hours
Subjective/Interval History
-
Date of Service: June 14, 2025
Objective Data
-
Labs:
Laboratory Results
06/14/25
05:21
WBC 17.1 H
Hgb 10.1 L
Hct 29.2 L
Plt Count
Sodium 134 L
Potassium 4.5
Chloride 101
Carbon Dioxide 20 L
BUN 117 H*
Creatinine 3.8 H
Glucose 113 H
Calcium 9.1
Total Bilirubin 0.6
AST 24
ALT 26
Alkaline Phosphatase 96
Vital Signs:
Vital Signs
Temp Pulse Resp BP Pulse Ox
97.5 F 88 16 160/82 96
06/14/25 07:00 06/14/25 08:30 06/14/25 07:14 06/14/25 08:30 06/14/25 09:12
I&O
06/13/25 06/14/25 06/15/25
06:59 05:59 06:59
Intake Total 480 / 480 1200 / 1200
Output Total 500 / 500 1250 / 1250
Balance -20 / -20 -50 / -50
Review of Systems
-
History Source: Patient
All other systems: Reviewed and negative
Physical Exam
-
General: No Apparent Distress and Comfortable
HEENT: Normocephalic and Deaf
Respiratory: Clear to Auscultation
Cardiac: Regular Rhythm
Neuro: Awake and Alert
Psych: Calm
--- NOTE | 2025-06-14 10:32 | W.PN.UPDATE ---
Update Note
Progress Note Update
Update note I had additional discussion with the patient's daughter. I have been trying to communicate with the patient by writing things down. Patient's daughter says he normally communicates with writing and also reading lips and also sign
language. However she has noticed over the last couple days that he is not quite understanding things as well as she usually does and even she is having some difficulty in her communication with him. Patient's mentation may be impacted by a number
of issues including metabolic abnormalities and rising BUN and creatinine. I reviewed issues with the patient's daughter from a cardiology standpoint and we did even discuss the possibility of right heart catheterization. Patient's daughter is not
sure if they are going to want to proceed with right heart cath she would like to discuss it further with her brother as they determine the best treatment for her father. It sounds as if they were even considering the possibility of hospice. For
now we will continue with current treatment and we can touch base with family tomorrow after they have had additional discussion
--- NOTE | 2025-06-14 13:16 | W.PN.UPDATE ---
Update Note
Progress Note Update
Family agreeable for RHC as per detailed conversation and sicne cardiology is feeling patient to be low risk for procedure
--- NOTE | 2025-06-14 13:34 | W.PN.NEPH.PH ---
Today's Communication / Plan
-
RHC
Assessment/Plan
-
Assessment:
Acute hypoxic respiratory failure on presentation
Acute CHD r EF 40% on echo
COPD exacerbation
Possible aspiration pneumonitis
MACHELLE with chronic kidney disease likely, stage IV-baseline creatinine 2.5 mg/DL
h/o Known SHIVA bilat
Hyponatremia
non gap met acidosis
Primary hypertension
Elevated LFTs
Anemia
CABG 2006
HLD
History of GI bleed
KALISPEL
PAD -history of bilateral carotid endarterectomies 2017
Orthostatic hypotension
Plan:
volume status difficult
overall weight is lower however
Follow BMP
holding lasix for now, he is overall stable
family agreeable to RHC to determine volume status
however, overall prognosis is poor given that we have come to this point.
He is not a dialysis candidate. This was discussed with the family previously
-
-
Date of Service: June 14, 2025
CC / HPI / ROS
-
Chief Complaint:
Follow-up MACHELLE with CKD, hyponatremia, metabolic acidosis
History of Present Illness:
Na up to 134
MACHELLE/creatinine up to 3.8 but stable
Remains with high oxygen requirements
non oliguric
Review of Systems:
difficult to communicate with KALISPEL
no pain
no SOB
Labs
-
Labs:
WBC 17.1 10^3/uL (4.8-10.8) H 06/14/25 05:21
RBC 3.36 10^6/uL (4.70-6.10) L 06/14/25 05:21
Hgb 10.1 g/dL (13.0-18.0) L 06/14/25 05:21
Hct 29.2 % (39.0-52.0) L 06/14/25 05:21
Plt Count 10^3/uL (130-400) 06/14/25 05:21
Sodium 134 mmol/L (135-145) L 06/14/25 05:21
Potassium 4.5 mmol/L (3.5-5.1) 06/14/25 05:21
Chloride 101 mmol/L (98-107) 06/14/25 05:21
Carbon Dioxide 20 mmol/L (22-30) L 06/14/25 05:21
BUN 117 mg/dl (9-20) H* 06/14/25 05:21
Creatinine 3.8 mg/dL (0.7-1.3) H 06/14/25 05:21
eGFR 14.86 06/14/25 05:21
Glucose 113 mg/dl (70-99) H 06/14/25 05:21
Calcium 9.1 mg/dl (8.4-10.2) 06/14/25 05:21
Mqi-M-Ylqgnsogitt Pept > 68643 pg/ml 06/09/25 21:23
Albumin 3.9 g/dl (3.5-5.0) 06/14/25 05:21
Physical Exam
-
Vital Signs:
Vital Signs
Temp Pulse Resp BP Pulse Ox
98.2 F 88 16 146/79 99
06/14/25 11:00 06/14/25 11:18 06/14/25 11:18 06/14/25 11:00 06/14/25 11:18
Cardiovascular:: Regular rate and rhythm
Respiratory:: Bilateral: Coarse
Lung Excursion:: Normal
Abdomen:: Nontender and Soft
Bowel Sounds:: Normal
Extremity Edema:: None: Bilateral:
[2025-06-14] MEDS: TYLENOL 650 MG PO (15:52)
[2025-06-14] MEDS: XALATAN OPHTHALMIC SOLUTION 1 DROP BOTH EYES (17:37)
[2025-06-15 03:00] VITALS: BP 159/74
[2025-06-15 03:55] VITALS: BMI 20.2
[2025-06-15] MEDS: DUONEB 3 ML INH ×4 (07:15→19:40)
[2025-06-15 07:28] VITALS: BP 146/77
[2025-06-15 07:40] LABS: Hematocrit 26.8 % (39.0-52.0); Hemoglobin 9.2 g/dL (13.0-18.0); Mean Corp Hgb Conc. 34.3 g/dL (33.0-37.0); Mean Corpuscular Volume 87.6 fL (80.0-94.0); Nucleated Red Blood Cells % 0.2 % (-); Platelet Count 229 10^3/uL (130-400); Red Cell Dist. Width 14.5 % (11.5-14.5)
[2025-06-15] MEDS: ZITHROMAX 250 MG PO (07:45)
[2025-06-15] MEDS: APRESOLINE 25 MG PO ×3 (07:45→20:58)
[2025-06-15] MEDS: PROTONIX 20 MG PO (07:45)
[2025-06-15] MEDS: ISORDIL 5 MG PO ×3 (07:45→20:58)
[2025-06-15] MEDS: TOPROL XL 50 MG PO (07:45)
[2025-06-15] MEDS: VISBIOME 1 CAP PO (07:46)
[2025-06-15] MEDS: REFRESH CELLUVISC GEL 1 DROPS BOTH EYES ×2 (07:46→21:01)
[2025-06-15] MEDS: HEPARIN 5000 UNITS SC ×2 (07:46→15:22)
[2025-06-15] MEDS: EYE BOTH EYES ×4 (07:47→20:59)
[2025-06-15] MEDS: PRED FORTE 1% EYE DROPS 1 DROP BOTH EYES ×2 (07:47→20:59)
[2025-06-15] MEDS: VOLTAREN BOTH EYES ×4 (07:47→20:59)
[2025-06-15 08:15] LABS: ALT (SGPT) 21 U/L (0-50); AST (SGOT) 20 U/L (17-59); Albumin 3.4 g/dl (3.5-5.0); Alkaline Phosphatase 89 U/L (38-126); Blood Urea Nitrogen 115 mg/dl (9-20); Calcium 8.4 mg/dl (8.4-10.2); Carbon Dioxide 24 mmol/L (22-30); Chloride 99 mmol/L (98-107); Estimated Creatinine Clearance 11 ml/min; Glucose 109 mg/dl (70-99); Potassium 4.1 mmol/L (3.5-5.1); Sodium 130 mmol/L (135-145); Total Protein 6.0 g/dl (6.3-8.2); eGFR 14.40
--- NOTE | 2025-06-15 08:41 | W.PN.CD ---
Today's Communication / Plan
-
RHC.
Further medication titration based off of filling pressures.
Impression / Plan
-
Impression/Plan: 85 y/o male (patient of Dr. Andrews- [facility] - last seen December 2022 with HFmEF, hypertension, hyperlipidemia, CKD, COPD, CAD with hx CABG 2006, PAD with hx b/l carotid endarterectomies, PAF (not on AC or DAPT due to anemia/Traumatic
retroperitoneal and iliopsoas hematoma/GIB/duodenal ulcer- requiring 7 units PRBC's) and deafness who is here for SOB, found to have acute hypoxic respiratory failure and reduced EF.
#Hypoxic respiratory failure
-Acute, threat to life.
-Multifactorial due to acute CHF exacerbation, COPD, possible atypical pneumonia and possible other underlying pulmonary process.
-Continue with antibiotics for pneumonia and short-term steroids for COPD. Pulmonary is consulted.
-With diuresis creatinine has gone up to 3.8. Diuretic currently on hold.
-Will continue to assess. Monitor response off diuretics.
-RHC discussed with patient, subsequently with daughter as the patient is unable to provide consent. After discussing risks/benefits, the patient's daughter, Yanni Xiong, has consented to the procedure.
-RHC today. Adjustment of diuretics after filling pressures obtained.
#HFmEF
-Acute.
-TTE 06/10/2025: LVEF 41%, global hypokinesis, mild/moderate mitral regurgitation.
-Creatinine up to 3.8 with aggressive diuresis.
-Weight 59.8 kg on admission now 55.9.
-GDMT:
-Diuretics: Furosemide 80 mg BID on hold.
-Beta kamala: Switched diltiazem to metoprolol succinate 50 mg daily.
-ACEI/ARB/ARNi: Limited by renal function. Hydralazine and isosorbide dinitrate added for additional treatment of hypertension
-SGLT2i: Limited by renal function.
-MRA: Limited by renal function.
-ICD: Not currently indicated.
#MACHELLE on CKD:
-Creatinine up to 3.8. Reviewed with nephrology diuretics currently being held.
#Atrial Fibrillation
-Paroxysmal per chart.
-Currently stable in SR. There is some AT/SVT, but no afib on monitor noted this admit. Some strips with blocked PAC's and junctional beats.
-Rate control with metoprolol (switched from diltiazem).
-[id number] = 5 (age x2, HTN, CHF, and CAD).
-Therapeutic anticoagulation on hold due to prior severe bleeding.
#CAD
-Chronic, stable.
-Hx CABG 2006.
-Denies angina.
#Abnormal troponin:
-Acute, due to non-ischemic myocardial injury in setting of CHF, MACHELLE.
-Peak 0.173.
#Hx PAD with surgery
Subjective/Interval History:
Prior notes document some difficulty with communication (beyond hearing impairment).
Weight is up 1.5 kg from yesterday (when diuretics were held).
Hypertension overnight. Hydralazine 25 mg PO TID started.
WBC relatively stable.
Hbg down 0.9 (10.1 --> 9.2).
Na has fallen to 130. BUN remains 115. Creatinine stable at 3.9.
Patient answers written questions with yes/no response. He was unable to write down where he was.
DATA:
TTE, 06/10/2025:
SUMMARY
1. Left ventricular ejection fraction is mildly reduced with an ejection fraction of 41% by Cheema's biplane method of discs.
2. Mild to moderate mitral valve regurgitation.
3. Compared to the prior on 07/13/2023, the systolic function has reduced from 60-65% to 41%.
Physical Exam
Vital Signs/Labs
Vital Signs
Temp Pulse Resp BP Pulse Ox
36.6 C 86 18 146/77 95
06/15/25 07:28 06/15/25 07:28 06/15/25 07:28 06/15/25 07:28 06/15/25 07:28
06/13/25 06/14/25 06/15/25
11:59 10:59 11:59
Actual Weight 55.962 kg 53.552 kg 55.066 kg
06/15/25 07:18
06/15/25 07:18
Magnesium 2.6 mg/dl (1.6-2.3) H 06/12/25 04:20
Triglycerides 92 mg/dl (10-149) 06/10/25 03:25
LDL Cholesterol, Calc 111 mg/dl 06/10/25 03:25
VLDL Cholesterol, Calc 18 mg/dl (0-30) 06/10/25 03:25
HDL Cholesterol 50 mg/dl 06/10/25 03:25
06/09/25
21:23
Xvu-B-Ipvqfdiujib Pept > 00046
LAB Results
06/12/25 06/12/25
11:40 19:40
Troponin I Cancelled Cancelled
Physical Exam
Constitutional: No acute distress and Comfortable
EENT: Anicteric and Moist mucous membranes
Cardiovascular: Rhythm & rate is regular, Pedal edema is absent, JVD present, S1S2 is normal and Murmur/rub/gallop absent
Respiratory: Respiratory effort normal, Wheeze Absent and Rhonchi Present
GI: Soft, Distention absent, Flat, Non tender and Normal bowel sounds
Neuro/Psych: Alert
Data Reviewed
-
Date of Service: June 15, 2025
Medical Decision Making: Reviewed Test Results, Independent Historian Assessment and Test Interpretation
EKG: Tracing Personally Visualized and interpreted and Report Reviewed by me
Echo: Report Reviewed by me
X-Ray/CT/US/MRI/NUC/PET: Image Personally Visualized and interpreted and Report Reviewed by me
Labs: Labs Reviewed by me
Old Records: Reviewed
--- NOTE | 2025-06-15 11:02 | ITS.CL.CATH ---
Patient Registrar - Catheterization
Cardiac Catheterization
Procedure Report:
RIGHT HEART CATHETERIZATION
Date of Procedure: 06/15/2025
Referring: Benjamín Peterson M.D.
INDICATION: Worsening renal failure, assessment of filling pressures.
ACCESS:
5 [place] right common femoral vein using a modified Seldinger technique with a micropuncture kit under ultrasound guidance.
CATHETERS:
5 [place] balloon wedge.
PROCEDURE:
The patient was prepped and draped in standard sterile fashion. The area for femoral access was anesthetized with 1% lidocaine. The right common femoral vein was punctured under ultrasound guidance and a micropuncture sheath was inserted. A 5
[place] sheath was inserted into the femoral vein. A 5 [place] balloon wedge catheter was advanced through the sheath into the superior vena cava. An SVC oxygen saturation was drawn. The balloon wedge catheter was advanced into the pulmonary artery
and a pulmonary artery oxygen saturation was drawn. Arterial oxygen saturation was assumed from pulse oximetry. Cardiac output was calculated using the Rita equation. The PA, wedge, RV and RA pressures were measured on pullback. The balloon wedge
catheter was removed. The 5 [place] sheath was removed and manual pressure was held for hemostasis.
Weight (kg): 55.1
PA (s/d/x mmHg): 40/22/28
PCWP (a/v/x mmHg): 21/21/16
RV (s/x mmHg): 40/10
RA (a/v/x mmHg): 13//10
AO (s/d/x mmHg): 185/88/127 (non-invasive)
SVC SvO2 (%): 66.3
IVC SvO2 (%): Not obtained.
RA SvO2 (%): Not obtained.
RV SvO2 (%): Not obtained.
PA SvO2 (%): 55.6
SaO2 (%): 95.0 (assumed)
Hbg (g/dL): 9.6
Rita
CO (liters/minute): 3.89
CI (liters/minute/m2): 2.43
Thermodilution
CO (liters/minute): Not performed.
CI (liters/minute/m2): Not performed.
TPG (mmHg): 12
PVR (Cook Units): 3.1
AVO2 Difference (Volume %): 5.14
Cardiac Power Output (velazquez): 1.1 (MAP * CO)/451 (normal 0.5 - 0.7; 0.4 - 0.6 in the elderly)
Cardiac Power Index (velazquez/m2): 0.68 (MAP * CI)/451
Erich: 1.8 (PAs-PAd)/RA
Radiation (mGy): 12.55
DAP (cm2.Gy): 1.8058
Fluoroscopy time (minutes): 2.8
CONCLUSION:
1. Mildly elevated filling pressures (PCWP = 16 mmHg at 55.1 kg), likely appropriate given decreased ejection fraction.
2. Mildly elevated, precapillary and postcapillary pulmonary hypertension (mean PA = 28 mmHg, PCWP = 16 mmHg, cardiac output = 3.89 L/min, PVR = 3.1 Cook units), mixed WHO group 2, possibly group 3.
3. Preserved cardiac functional parameters (cardiac index = 2.43 L/min, cardiac power output = 1.1 W, Erich = 1.8).
RECOMMENDATIONS:
1. Expectant management after right heart catheterization via right common femoral approach.
2. Hold diuresis given mild elevation in filling pressures with elevated BUN/creatinine. 55.1 kg appears to be his dry weight.
Copy to: Benjamín Peterson M.D., Francisco Brito M.D.
Eyal Dodson D.O., [facility], FACP
[2025-06-15 11:24] VITALS: BP 151/84
--- NOTE | 2025-06-15 13:35 | W.PN.PUL3 ---
Today's Communication / Plan
-
Obtain chest x-ray-if persistent infiltrates then CT of the chest may be helpful.
Diuresis on hold
continue DuoNebs
Incentive spirometry
Recommend eventual outpatient pulmonary follow-up
Assessment
-
Patient is a very pleasant 85-year-old gentleman with known history of COPD, heart failure with preserved ejection fraction, A-fib presented to the hospital with worsening shortness of breath. Patient reportedly symptomatic over the last few days
with professed severely worsening shortness of breath. No significant cough or purulent expectoration reported. Patient reportedly had an outpatient x-ray which was suggestive of pneumonia and was sent to emergency room for further evaluation and
treatment. Imaging in the emergency room was suggestive of bilateral pulmonary edema. Patient was admitted to IMU and overnight required briefly BiPAP and then was transition to supplemental oxygen. In view of respiratory failure, pulmonary
consultation was requested for further input.
Reconsulted to see him on 06/15/2025 after right heart catheterization.
#1. Acute hypoxic respiratory failure--cardiogenic pulmonary edema--echocardiogram with LVEF 41%. Mild to moderate MR.
Acute on chronic heart failure, patient has decreased ejection fraction, LVEF 41%
- Follow-up imaging on 06/12 after more aggressive diuresis with improving opacities consistent with resolving pulmonary edema
- Status post diuresis.
- Currently on room air.
- No worsening hypoxemia off antibiotics. Less likely infectious.
- Continue azithromycin that patient has been on chronically for underlying COPD
- On admission on noninvasive ventilation-has not required further. Clinically improved.
- Cardiac catheterization 06/15/2025: Mildly elevated filling pressures pulmonary capillary wedge pressure of 16 mmHg. Pulmonary hypertension. PVR 3.1 Cook unit. Cardiac index 2.43 L/min.
- No further diuresis recommended at this point.
- Will update chest x-ray PA and lateral now. If there is persistent bilateral infiltrates then a CT of the chest may be helpful to evaluate lung parenchyma better.
#2. History of COPD--has emphysema on CAT scan.
- Initial wheezing could certainly be 'cardiac asthma', related to volume overload. 06/11--currently not bronchospastic 06/15/2025.
- Agree with continuing DuoNebs-can continue upon discharge.
- Completed 5 days of prednisone.-
- Continue p.o. azithromycin (Home dose)-for anti-inflammatory properties.
- Not usually on inhalers or nebulizer.
#3. Acute kidney injury.
-BUN >115
- concerning for cardiorenal syndrome
-diuresis on hold based on [facility] 06/15/2025
- Management per nephrology and cardiology service
Other medical diagnoses:
- MACHELLE with underlying chronic kidney disease, suspect cardiorenal syndrome
- Atrial fibrillation, chronic
- History of coronary artery disease, s/p coronary artery bypass graft
- Hypertension, hyperlipidemia
- Peripheral vascular disease
- History of smoking
- Prior history of GI bleed
- History of aspiration in the past
- Mild troponin leak.
Data:
ECHO 05/2025: 1. Left ventricular ejection fraction is mildly reduced with an ejection fraction of 41 % by Cheema's biplane method of discs.
2. Mild to moderate mitral valve regurgitation.
3. Compared to the prior on 07/13/2023, the systolic function has reduced from 60-65% to 41 %.
Subjective Data
-
Date of Service:
Date of Service: June 15, 2025
Chief Complaint: Pulmonary Follow Up
Objective Data
Data Reviewed
Vital Signs / I&O / Oxygen:
Vital Signs
Temp Pulse Resp BP Pulse Ox
98.3 F 86 16 151/84 92
06/15/25 11:24 06/15/25 11:38 06/15/25 11:38 06/15/25 11:24 06/15/25 11:38
Intake and Output
06/14/25 06/15/25 06/16/25
05:59 06:59 06:59
Intake Total 1200 / 1200 960 / 960
Output Total 1250 / 1250 300 / 300
Balance -50 / -50 660 / 660
SaO2 92
Nasal Cannula flow liters per 2
minute
Physical Exam
General: Comfortable
HEENT: Normocephalic
Cardiovascular: S1-S2
Respiratory: Wheeze (none )
GI: Soft and Non Distended
Neurology: Awake, Alert and No Motor Deficits
Skin: Warm
Labs/Micro/Reports
Lab Data
06/15/25 07:18
06/15/25 07:18
Microbiology
06/09/25 22:45 Blood/Venous Blood Culture - Final
No Growth - Final Report
06/09/25 22:45 Blood/Venous Blood Culture - Final
No Growth - Final Report
--- NOTE | 2025-06-15 14:53 | W.PN.NEPH.PH ---
Today's Communication / Plan
-
Continue to hold diuretics
Assessment/Plan
-
Assessment:
Acute hypoxic respiratory failure on presentation
Acute CHD r EF 40% on echo
COPD exacerbation
Possible aspiration pneumonitis
MACHELLE with chronic kidney disease likely, stage IV-baseline creatinine 2.5 mg/DL
h/o Known SHIVA bilat
Hyponatremia
non gap met acidosis
Primary hypertension
Elevated LFTs
Anemia
CABG 2006
HLD
History of GI bleed
YER[place]
PAD -history of bilateral carotid endarterectomies 2017
Orthostatic hypotension
Plan:
Follow BMP
holding lasix for now> right heart cath 06/15 mildly elevated wedge
however, overall prognosis is poor given that we have come to this point.
He is not a dialysis candidate. This was discussed with the family previously
AM labs
-
-
Date of Service: June 15, 2025
CC / HPI / ROS
-
Chief Complaint:
Follow-up MACHELLE with CKD, hyponatremia, metabolic acidosis
History of Present Illness:
Na up to 134
MACHELLE/creatinine up to 3.8 but stable
Remains with high oxygen requirements
non oliguric
Review of Systems:
difficult to communicate with YERINGTON
no pain
no SOB
Labs
-
Labs:
WBC 16.7 10^3/uL (4.8-10.8) H 06/15/25 07:18
RBC 3.06 10^6/uL (4.70-6.10) L 06/15/25 07:18
Hgb 9.2 g/dL (13.0-18.0) L 06/15/25 07:18
Hct 26.8 % (39.0-52.0) L 06/15/25 07:18
Plt Count 229 10^3/uL (130-400) 06/15/25 07:18
Sodium 130 mmol/L (135-145) L 06/15/25 07:18
Potassium 4.1 mmol/L (3.5-5.1) 06/15/25 07:18
Chloride 99 mmol/L (98-107) 06/15/25 07:18
Carbon Dioxide 24 mmol/L (22-30) 06/15/25 07:18
BUN 115 mg/dl (9-20) H* 06/15/25 07:18
Creatinine 3.9 mg/dL (0.7-1.3) H 06/15/25 07:18
eGFR 14.40 06/15/25 07:18
Glucose 109 mg/dl (70-99) H 06/15/25 07:18
Calcium 8.4 mg/dl (8.4-10.2) 06/15/25 07:18
Obh-D-Qlaxrrdeglk Pept > 96725 pg/ml 06/09/25 21:23
Albumin 3.4 g/dl (3.5-5.0) L 06/15/25 07:18
Physical Exam
-
Vital Signs:
Vital Signs
Temp Pulse Resp BP Pulse Ox
98.3 F 86 16 151/84 92
06/15/25 11:24 06/15/25 11:38 06/15/25 11:38 06/15/25 11:24 06/15/25 11:38
Cardiovascular:: Regular rate and rhythm
Respiratory:: Bilateral: Coarse
Lung Excursion:: Normal
Abdomen:: Nontender and Soft
Bowel Sounds:: Normal
Extremity Edema:: None: Bilateral:
[2025-06-15 15:00] VITALS: BP 154/82
--- NOTE | 2025-06-15 15:06 | W.PN.HOSP.TC ---
Addendum entered and electronically signed by Gricelda Barbour MD 06/15/25 19:18:
I saw and evaluated the patient independently. I reviewed and discussed the resident�s note and agree with findings and plan as documented by Dr. Foss.
GENERAL: well developed, well nourished, male in no apparent distress
HEENT: NC/AT--deaf
HEART: regular rate and rhythm, +S1, +S2
LUNGS : clear to auscultation bilaterally
ABDOM: soft, nontender, nondistended, + bowel sounds
EXT: no cyanosis, clubbing, or edema
NEUROLOGIC: nonfocal
Acute on chronic combined CHF exacerbation/Non-ischemic myocardial injury due to CHF, hypoxia, MACHELLE/CAD stable s/p CABG/Afib, unspecified--ECHO with EF 41%, stage 1 diastolic dysfunction--s/p right heart cath to eval volume status--appears to be
mostly euvolemic--PCWP = 16 but creat 3.9 and no room for further diuresis--this is likely end stand cardiorenal--recommend hospice--Dr. Foss spoke with family who are in agreement--plans for PRN lasix for comfort and back to SNF in AM on hospice
Acute COPD exacerbation on admission--Pneumonia ruled out--COVID-19 and influenza neg--apprec pulm--CT scan cannot be done with contrast given creatinine and likely would not change management analyst--finished prednisone taper and ABX stopped as pt
improved with diuresis--cont bronchodilators--Cont chronic Azithromycin
Leukocytosis--likely due to recent steroids
Acute hypoxic respiratory failure due to all above--off O2
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
Anemia likely of chronic disease--no evidence of bleeding--Hx of retroperitoneal hematoma and GIB in 2023, s/p massive blood transfusion
PVD/HLD/GERD/Essential HTN--cont home meds, when able
GOC discussion had by Dr. Foss with family--agreeable to hospice--CM also present for discussion--looking to go back to SNF tomorrow
DVT proph --heparin
DNR/DNI
Original Note:
Today's Communication/Plan
-
Despite diureses helping to remove excess fluid and and reduce CHF, its also puts stress on the kidney as evidenced by the rising BUN and creatinine.
Hold Lasix for now.
Continue Azithromycin
Wean off O2 as able
Follow BMP
Continue home meds when able
Encourage family to come to decision regarding next steps
Strongly suggest Hospice Care.
Assessment / Plan
Assessment / Plan
Impression:
85yo M with HTN, HLD, CKD, COPD, HFpEF, afib, CAD, PAD, deafness came with SOB, managed for acute HFpEF exacerbation and possible COPD exacerbation complicated by worsening cardiorenal syndrome, while patient not a candidate for HD
A/P:
#Acute on chronic combined CHF exacerbation
#Non-ischemic myocardial injury 2/2 CHF, hypoxia, MACHELLE
#CAD stable s/p CABG
#Afib, unspecified
no chest pain, cardiology not concerning for ACS
Not on anticoagulation due to bleeding risk
With family permission, he had his RHC procedure done this morning.
Echo: EF 41%, mild-moderate MR, left ventricular wall motion is diffusely hypokinetic. Stage I diastolic dysfunction suggestive of abnormal relaxation
Right Hearth Catheterization: Mildly elevated filling pressures likely due to decreased ejection fraction. 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 Preserved cardiac functional parameters. Recommended to hold diuresis
given mild elevation in filling pressures with elevated BUN/creatinine.
55.1 kg appears to be this patient's dry weight.
Overall prognosis is poor given that we have come to this point. He is not a dialysis candidate.
Strongly recommend hospice.
#Acute COPD exacerbation on admisison
#Pneumonia ruled out
COVID-19 and influenza neg
Pulmonary consult
cont bronchodilators
Completed prednisone taper
Abx stopped and CXR improved with diuresis without overt signs of pneumonia as agreed with Certified Registered Dental Assistant
Cont chronic Azithromycin
#Leukocytosis
2/2 recent steroids
No fever
follow CBC off Abx
#Acute hypoxic respiratory failure 2/2 above
wean off O2 as able
#MACHELLE on CKD stage 3b 2/2 cardiorenal syndrome
#Hyponatremia
Nephrology consult: agreed with diuresis
not candidate for HD
BUN still high at 115 (dropped from 117).
Creatinine increased from 3.9 to 3.9
#Anemia
anemia w/u
check FOBT
Hx of retroperitoneal hematoma nd GIB in 2023, s/p massive blood transfusion
#PVD
#HLD
#GERD
#Essential HTN
cont home meds, when able
#GOC
due to worsening MACHELLE and not being candidate for HD - reasonable to offer hospice
Pending family decision, who would like to see if things will improve
DVT ppx hep
DNR/DNI
Anticipated Discharge: Within 24 hours
Subjective/Interval History
-
Date of Service: June 15, 2025
No acute overnight events reported.
After I pre-rounded on the patient this morning, he was sent down for RHC procedure.
Objective Data
-
Labs:
Laboratory Results
06/15/25
07:18
WBC 16.7 H
Hgb 9.2 L
Hct 26.8 L
Plt Count 229
Sodium 130 L
Potassium 4.1
Chloride 99
Carbon Dioxide 24
BUN 115 H*
Creatinine 3.9 H
Glucose 109 H
Calcium 8.4
Total Bilirubin 0.5
AST 20
ALT 21
Alkaline Phosphatase 89
Vital Signs:
Vital Signs
Temp Pulse Resp BP Pulse Ox
98.3 F 86 16 151/84 92
06/15/25 11:24 06/15/25 11:38 06/15/25 11:38 06/15/25 11:24 06/15/25 11:38
I&O
06/14/25 06/15/25 06/16/25
05:59 06:59 06:59
Intake Total 1200 / 1200 960 / 960
Output Total 1250 / 1250 300 / 300
Balance -50 / -50 660 / 660
Chest X Ray (06/09/2025):IMPRESSION: Findings most consistent with congestive heart failure.
Chest X Ray (06/11/2025):IMPRESSION: Worsening CHF
Chest X Ray (06/12/2025):IMPRESSION: Improvement in Pulmonary Edema
EKG (06/09/2025): SINUS TACHYCARDIA Poor R-wave progression ; consider anterior infarct, lead placement, or normal variant
Echo (06/10/2025):Compared to the prior on 07/13/2023, the systolic function has reduced from 60-65% to 41 %.
Review of Systems
-
History Source: Patient
All other systems: Reviewed and negative
Respiratory: Reports Trouble Breathing
Psych: Reports Sad and Anxious
Physical Exam
-
General: No Apparent Distress and Comfortable
HEENT: Normocephalic and Deaf
Respiratory: Clear to Auscultation
Cardiac: Regular Rhythm
Neuro: Awake and Alert
Psych: Calm
Data Reviewed
-
Diagnostic Radiology: Report Reviewed by me and Discussed with Physician
Medical Tests (Nuc Med, Echo etc): Report Reviewed by me and Discussed with Physician
Labs: Labs Reviewed by me and Discussed with Physician
--- NOTE | 2025-06-15 15:21 | CM ---
Addendum entered by Cece Underwood 06/15/25 16:54:
Family made aware of plan for transfer tomorrow.
Addendum entered by Cece Underwood 06/15/25 16:36:
Facility now asking for discharge tomorrow; please call [phone]. CM will call to patient family and update.
Addendum entered by Cece Underwood 06/15/25 16:24:
Patient family spoke with CM and physician and have agreed to return patient to SNF and start Hospice with [facility]. Per SNF they would like patient to return tonight, pending hospice sign on and staff availability. Facility has a holiday
tomorrow so after discussion with Attending plan for transfer Sunday, following discussion with family. CM will send referral via all scripts to [facility] so they can schedule sign on.
Original Note:
Patient seen at bedside with physicians. Patient from [facility] and per Lia[facility] will provide Lasix if medically recommended. Patient possible for return to SNF with hospice referral pending family wishes. CM will continue to follow for
discharge planning needs.
Plan; return to SNF with hospice vs palliative care vs rehab pending family choice
--- NOTE | 2025-06-15 16:58 | PTCARENOTE ---
Communicated with Dr Foss regarding patient getting R heart cath. Call placed to patients daughter who stated she wants to go through with pt getting a R heart cath. Information relayed to laborer high density press and Dr Dodson in to speak with daughter and
obtain consent for procedure. Pt tolerated procedure well as per report, continues with gauze over R groin, no drainage noted, strong pulses in BLLE.
[2025-06-15] MEDS: XALATAN OPHTHALMIC SOLUTION 1 DROP BOTH EYES (17:03)
--- NOTE | 2025-06-15 19:03 | W.DCSUMMARY ---
Discharge Summary
Discharge Data
Date of Admission: 06/09/25
Date of Discharge: 06/15/25
Discharge Plan
-
Instructions: *PCP/Other [facility] Heart Failure Instructions
Stand Alone Forms: DC Instructions- Cath/EP Lab
Referrals:
Julio Andrews MD [Non-Admitting Privileges, Cardiology] - in two to three weeks
Lance Rosales DO [Family Provider, [facility]]
Prescriptions:
No Action
acetaminophen 325 mg Tablet
650 mg PO Q6HPRN PRN (Reason: mild pain/ fever>100.5F) Qty: 30 0RF
diltiazem HCl 30 mg Tablet
30 mg PO QID Qty: 60 0RF
latanoprost 0.005 % Drops
1 drp OPHTHALMIC (EYE) QPM
lidocaine 4 % Cream
1 applic TOPICAL BID
pantoprazole 20 mg Tablet,Delayed Release (Dr/Ec)
20 mg PO DAILY
ketorolac 0.5 % Drops
1 drp OPHTHALMIC (EYE) QID
prednisolone acetate 1 % Drops,Suspension
1 drp OPHTHALMIC (EYE) BID
carboxymethylcellulose sodium 1 % Drops
1 drp OPHTHALMIC (EYE) BID
ipratropium-albuterol 0.5 mg-3 mg(2.5 mg base)/3 mL Solution For Nebulization
3 ml INHALATION Q6H
azithromycin 250 mg Tablet
250 mg PO DAILY
Probiotic 10 billion cell Capsule
10,000 mmu cells PO DAILY
bisacodyl 10 mg Suppository
10 mg [place] DAILY PRN (Reason: constipation)
Discharge Date and Time
Print Language: CONGOLESE
[2025-06-15 19:40] VITALS: BP 147/78
[2025-06-15 23:00] VITALS: BP 140/70
[2025-06-16] VITALS: PULSE 2; PULSE 81
[2025-06-16] MEDS: HEPARIN 5000 UNITS SC ×2 (00:55→07:39)
[2025-06-16 03:40] VITALS: BP 162/86
[2025-06-16 03:46] VITALS: PULSE 2
[2025-06-16 06:00] VITALS: BMI 19.5
[2025-06-16 07:00] VITALS: BP 143/81
[2025-06-16] MEDS: DUONEB 3 ML INH (07:16)
[2025-06-16] MEDS: TOPROL XL 50 MG PO (07:37)
[2025-06-16] MEDS: PROTONIX 20 MG PO (07:37)
[2025-06-16] MEDS: ISORDIL 5 MG PO (07:37)
[2025-06-16] MEDS: ZITHROMAX 250 MG PO (07:37)
[2025-06-16] MEDS: APRESOLINE 25 MG PO (07:37)
[2025-06-16] MEDS: VISBIOME 1 CAP PO (07:37)
[2025-06-16] MEDS: REFRESH CELLUVISC GEL 1 DROPS BOTH EYES (07:38)
[2025-06-16] MEDS: EYE BOTH EYES (07:41)
[2025-06-16] MEDS: PRED FORTE 1% EYE DROPS 1 DROP BOTH EYES (07:41)
[2025-06-16] MEDS: VOLTAREN BOTH EYES (07:41)
--- NOTE | 2025-06-16 09:13 | W.PN.CD ---
Today's Communication / Plan
-
transition to hospice care
Impression / Plan
-
Impression/Plan: 85 y/o male (patient of Dr. Andrews- [facility] - last seen December 2022 with HFmEF, hypertension, hyperlipidemia, CKD, COPD, CAD with hx CABG 2006, PAD with hx b/l carotid endarterectomies, PAF (not on AC or DAPT due to anemia/Traumatic
retroperitoneal and iliopsoas hematoma/GIB/duodenal ulcer- requiring 7 units PRBC's) and deafness who is here for SOB, found to have acute hypoxic respiratory failure and reduced EF.
#Hypoxic respiratory failure
-Acute, threat to life.
-Multifactorial due to acute CHF exacerbation, COPD, possible atypical pneumonia and possible other underlying pulmonary process.
-Continue with antibiotics for pneumonia and short-term steroids for COPD. Pulmonary is consulted.
-With diuresis creatinine has gone up to 3.8. Diuretic currently on hold---PCWP 16 on C 06/15/25 at 55.1kg
-weight down without further diuretic
#HFmEF
-Acute.
-TTE 06/10/2025: LVEF 41%, global hypokinesis, mild/moderate mitral regurgitation.
-Creatinine up to 3.8 with aggressive diuresis.
-Weight 59.8 kg on admission now 55.9.
-GDMT:
-Diuretics: Furosemide 80 mg BID on hold.
-Beta kamala: Switched diltiazem to metoprolol succinate 50 mg daily.
-ACEI/ARB/ARNi: Limited by renal function. Hydralazine and isosorbide dinitrate added for additional treatment of hypertension
-SGLT2i: Limited by renal function.
-MRA: Limited by renal function.
-ICD: Not currently indicated.
#MACHELLE on CKD:
-Creatinine up to 3.8. Reviewed with nephrology diuretics currently being held.
#Atrial Fibrillation
-Paroxysmal per chart.
-Currently stable in SR. There is some AT/SVT, but no afib on monitor noted this admit. Some strips with blocked PAC's and junctional beats.
-Rate control with metoprolol (switched from diltiazem).
-[id number] = 5 (age x2, HTN, CHF, and CAD).
-Therapeutic anticoagulation on hold due to prior severe bleeding.
#CAD
-Chronic, stable.
-Hx CABG 2006.
-Denies angina.
#Abnormal troponin:
-Acute, due to non-ischemic myocardial injury in setting of CHF, MACHELLE.
-Peak 0.173.
#Hx PAD with surgery
Discussed with Dr pennington, now will proceed to hospice
Subjective/Interval History:
awake and calm
DATA:
TTE, 06/10/2025:
SUMMARY
1. Left ventricular ejection fraction is mildly reduced with an ejection fraction of 41% by Cheema's biplane method of discs.
2. Mild to moderate mitral valve regurgitation.
3. Compared to the prior on 07/13/2023, the systolic function has reduced from 60-65% to 41%.
Physical Exam
Vital Signs/Labs
Vital Signs
Temp Pulse Resp BP Pulse Ox
98.2 F 83 18 143/81 91
06/16/25 08:05 06/16/25 08:05 06/16/25 08:05 06/16/25 07:00 06/16/25 08:05
06/15/25 06/16/25 06/17/25
06:59 06:59 06:59
Actual Weight 121 lb 6.4 oz 117 lb 4.8 oz
Magnesium 2.6 mg/dl (1.6-2.3) H 06/12/25 04:20
Triglycerides 92 mg/dl (10-149) 06/10/25 03:25
LDL Cholesterol, Calc 111 mg/dl 06/10/25 03:25
VLDL Cholesterol, Calc 18 mg/dl (0-30) 10/29/25 03:25
HDL Cholesterol 50 mg/dl 06/10/25 03:25
06/09/25
21:23
Ify-T-[id number] Pept > 85935
Physical Exam
Constitutional: No acute distress and Comfortable
Respiratory: Respiratory effort normal and Lungs clear to auscul.
Neuro/Psych: AO x 3
Other: Cath Site (RFV site soft and well healed)
Data Reviewed
-
Date of Service: June 16, 2025
Medical Decision Making: Review of Case with other Provider (d/w Dr Pennington transitioning to hospice)
[2025-06-16 10:27] LABS: Hematocrit 30.6 % (39.0-52.0); Hemoglobin 10.2 g/dL (13.0-18.0); Mean Corp Hgb Conc. 33.3 g/dL (33.0-37.0); Mean Corpuscular Volume 92.4 fL (80.0-94.0); Nucleated Red Blood Cells % 0 % (-); Platelet Count 235 10^3/uL (130-400); Red Cell Dist. Width 14.9 % (11.5-14.5)
[2025-06-16 10:44] VITALS: BP 156/89
--- NOTE | 2025-06-16 10:49 | W.DCSUMMARY ---
Addendum entered and electronically signed by Gricelda Barbour MD 06/17/25 07:23:
Read, reviewed, and agree. See same day progress note for additional details. Time spent coordinating care, DC planning, review of DC plan of care with resident, transition of care, review of records in EMR, med rec, consults, notes, d/w
consultants, nursing, family, and CM = 37 minutes
Missing information from below:
While all of what Dr. Foss documented below is correct, hospice was not discussed in detail until the right heart cath came back showing wedge pressure of 16 along with creatinine of 3.9. Diuretics were held per cardiology. Patient is
approximately as euvolemic as he could get without further compromising renal function with further diuresis. It was at that time that hospice was decided upon by family since patient was not a hemodialysis candidate. He was discharged to his
correction with [facility] as they are hospice of choice. He was discharged on his full medication list with hospice to decide which medications he will continue. Family was hoping that Lasix could be continued for 'comfort'.
Original Note:
Discharge Summary
Discharge Data
Date of Admission: 06/09/25
Date of Discharge: 06/16/25
-
Pending Results: No
Hospital Course
85-year-old male from [facility] presented to ED on 06/09/2025 with complaints of acute shortness of breath. Patient chest x-ray revealed bilateral infiltrates suggestive of possible pneumonia. Has low-grade fever and elevated
white blood cell count. Past medical history of CHF plus current symptoms could be initial signs of pneumonia. Exhibits rales at the bilateral bases and pulmonary vascular congestion via imaging. proBNP elevated at 27,000 suggesting cardiac
stress. Troponin levels are elevated indicating possible cardiac stress or injury. Experiencing renal failure with creatinine elevated to 2.6 from baseline suggesting worsening renal function. As of (06/11/2025): Patient is tachycardia and
tachypneic. 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 His most recent Echo illustrates a EF from 60-65% down to 41%. Speech therapy had initially evaluated the patient and determined he might be a high aspiration risk so they
advised for him to be put on n.p.o. until further notice. (06/11/2025): In the morning they conducted a VSE procedure that illustrated that Mr. Stokes was in fact not high aspiration risk. His diet was changed back to full solids and thin liquids,
and his medications that originally were converted from p.o. to IV, will convert back to p.o. His chest x-ray from today compared with the prior x-ray illustrated, much worse his CHF again. The decision was made to put him on 80 mg IV Lasix twice
daily to try to help with the diuresis. Patient's daughter was notified and she came to talk to the hospitalist team. She was educated on the topic of CHF as it relates to kidney function. Her brother was also listening on the call. The family was
given a brief update of the situation and reconfirmed their fathers full code status. I explained how his worsening CHF and renal function were connected and the steps we're taking to help treat these issues. Family understands he is not a candidate
for hemodialysis and would have a poor quality of life. Will update daughter tomorrow on her fathers condition. As of (06/12/2025): an updated Chest X Ray illustrated mild improvement in pulmonary edema, however, as his CHF starts to improve, his
kidney function as evidenced by an increase in creatinine from 3.2 to 3.4 is starting to show the pressure the kidneys are under and how they are being impacted. This same cycle kept repeating until it was recommended to give the kidneys a break
from the effects of the patients Lasix.Patients daughter and son (via phonecall) were brought in to discuss hospice care. As of 06/16/2025, Patient is discharged with medication that he initially came in with. Isaac Underwood (SONNY) was able to find
placement for patient at [facility].
Discharge Plan
-
Patient Disposition: Hospice - Inpatient
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
acute chronic obstructive pulmonary disease exacerbation, leukocytosis, acute hypoxic respiratory failure, acute kidney injury on chronic kidney disease stage IIIb due to cardiorenal syndrome, anemia likely of chronic disease, peripheral vascular
disease, hyperlipidemia, gastroesophageal reflux disease, essential hypertension.
Condition: Serious
Diet: Regular
Activity: With assistance and As tolerated
Driving Restrictions: No driving
Bathing Restrictions: None
Other Services: Hospice
Instructions: *PCP/Other [employer] Heart Failure Instructions
Stand Alone Forms: DC Instructions- Cath/EP Lab
Referrals:
Julio Andrews MD [Non-Admitting Privileges, Cardiology] - in two to three weeks
Lance Rosales DO [Family Provider, Family Practice]
Prescriptions:
Continued
acetaminophen 325 mg Tablet
650 mg PO Q6HPRN PRN (Reason: mild pain/ fever>100.5F) Qty: 30 0RF
diltiazem HCl 30 mg Tablet
30 mg PO QID Qty: 60 0RF
latanoprost 0.005 % Drops
1 drp OPHTHALMIC (EYE) QPM
lidocaine 4 % Cream
1 applic TOPICAL BID
pantoprazole 20 mg Tablet,Delayed Release (Dr/Ec)
20 mg PO DAILY
ketorolac 0.5 % Drops
1 drp OPHTHALMIC (EYE) QID
prednisolone acetate 1 % Drops,Suspension
1 drp OPHTHALMIC (EYE) BID
carboxymethylcellulose sodium 1 % Drops
1 drp OPHTHALMIC (EYE) BID
ipratropium-albuterol 0.5 mg-3 mg(2.5 mg base)/3 mL Solution For Nebulization
3 ml INHALATION Q6H
azithromycin 250 mg Tablet
250 mg PO DAILY
Probiotic 10 billion cell Capsule
10,000 mmu cells PO DAILY
bisacodyl 10 mg Suppository
10 mg IL DAILY PRN (Reason: constipation)
Discharge Orders:
Discharge Patient (As Directed); Ordered 06/16/25
Ordered By: Tracee Foss
Discharge Date and Time
Discharge Date/Time: 06/16/25 11:23
Print Language: MAORI
--- NOTE | 2025-06-16 10:54 | W.PN.HOSP.TC ---
Assessment / Plan
Assessment / Plan
Impression:
85yo M with HTN, HLD, CKD, COPD, HFpEF, afib, CAD, PAD, deafness came with SOB, managed for acute HFpEF exacerbation and possible COPD exacerbation complicated by worsening cardiorenal syndrome, while patient not a candidate for HD
A/P:
#Acute on chronic combined CHF exacerbation
#Non-ischemic myocardial injury 2/2 CHF, hypoxia, MACHELLE
#CAD stable s/p CABG
#Afib, unspecified
no chest pain, cardiology not concerning for ACS
Not on anticoagulation due to bleeding risk
With family permission, he had his RHC procedure done this morning.
Echo: EF 41%, mild-moderate MR, left ventricular wall motion is diffusely hypokinetic. Stage I diastolic dysfunction suggestive of abnormal relaxation
Right Hearth Catheterization: Mildly elevated filling pressures likely due to decreased ejection fraction. 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 Preserved cardiac functional parameters. Recommended to hold diuresis
given mild elevation in filling pressures with elevated BUN/creatinine.
Appears to be mostly Euvolemic
PCWP = 16, but creatinine =3.9 and no further room for diuresis; likely end stage cardiorenal syndrome.
55.1 kg appears to be this patient's dry weight.
Overall prognosis is poor given that we have come to this point. He is not a dialysis candidate.
Strongly recommend hospice.
Spoke with family who are in agreement
Plans for PRN Lasix for comfort and back to SNF in AM on hospice
#Acute COPD exacerbation on admisison
#Pneumonia ruled out
COVID-19 and influenza neg
Pulmonary consult
CT scan cannot be done with contrast due to creatinine and likely would not exchange operator
cont bronchodilators
Completed prednisone taper
Abx stopped and CXR improved with diuresis without overt signs of pneumonia as agreed with Inspector Receiving
Cont chronic Azithromycin
#Leukocytosis
2/2 recent steroids
No fever
#Acute hypoxic respiratory failure 2/2 above
Off O2
#MACHELLE on CKD stage 3b 2/2 cardiorenal syndrome
#Hyponatremia
Nephrology consult: agreed with diuresis
not candidate for HD
BUN still high at 115 (dropped from 117).
Creatinine increased from 3.9 to 3.9
#Anemia
anemia w/u
check FOBT
Hx of retroperitoneal hematoma nd GIB in 2023, s/p massive blood transfusion
#PVD
#HLD
#GERD
#Essential HTN
cont home meds, when able
#GOC
due to worsening MACHELLE and not being candidate for HD - reasonable to offer hospice
Pending family decision
Looking to go ba
DVT ppx heparin
DNR/DNI
Anticipated Discharge: 24 - 48 hours
Subjective/Interval History
-
Date of Service: June 15, 2025
Overnight Events:
Objective Data
-
Labs:
Laboratory Results
06/15/25
07:18
WBC 16.7 H
Hgb 9.2 L
Hct 26.8 L
Plt Count 229
Sodium 130 L
Potassium 4.1
Chloride 99
Carbon Dioxide 24
BUN 115 H*
Creatinine 3.9 H
Glucose 109 H
Calcium 8.4
Total Bilirubin 0.5
AST 20
ALT 21
Alkaline Phosphatase 89
Vital Signs:
Vital Signs
Temp Pulse Resp BP Pulse Ox
98.4 F 87 16 154/82 95
06/15/25 15:00 06/15/25 15:11 06/15/25 15:11 06/15/25 15:00 06/15/25 15:11
I&O
Microbiology Results - Entire Visit
06/09/25 22:45 Blood/Venous Blood Culture - Final
No Growth - Final Report
06/09/25 22:45 Blood/Venous Blood Culture - Final
No Growth - Final Report
06/10/25 09:43 Nose MRSA Screen - Final
No Methicillin Resistant Staphylococcus aureus isolated.
06/10/25 13:46 Urine Legionella Urinary Antigen - Final
Negative for Legionella pneumophila Serogroup 1 antigen.
A negative result does not rule out the possiblity of
Legionella infection due to other serogroups or species of
Legionella. Clinical correlation is recommended.
06/10/25 13:46 Urine Streptococcus pneumoniae Antigen (M - Final
Negative for Streptococcus pneumoniae antigen.
A negative result does not exclude infection with
Streptococcus pneumoniae. Clinical correlation is
recommended.
06/09/25 23:43 Nasal Swab Influenza Types A & B (ANDRE) - Final
Negative for Influenza A & B, NAAT
Negative results must be combined with clinical observations
and patient history.
Nucleic Acid Amplification test (NAAT)performed on the
[employer] platform.
Hematology and Coagulation - Last 24 hours
06/13/25 06/16/25 Range/Units
11:04 10:02
WBC 15.0 H (4.8-10.8) 10^3/uL
RBC 3.31 L (4.70-6.10) 10^6/uL
Hgb 10.2 L (13.0-18.0) g/dL
Hct 30.6 L (39.0-52.0) %
MCV 92.4 (80.0-94.0) fL
MCH 30.8 (27.0-31.0) pg
MCHC 33.3 (33.0-37.0) g/dL
RDW 14.9 H (11.5-14.5) %
Plt Count 235 (130-400) 10^3/uL
MPV 12.3 H (7.4-10.4) fL
Abs Immat Gran (auto) 0.5 H (0-0.05) 10^3/uL
Absolute Neuts (auto) 9.9 H (1.4-6.5) 10^3/uL
Absolute Lymphs (auto) 1.0 L (1.2-3.4) 10^3/uL
Absolute Monos (auto) 2.4 H (0.1-0.6) 10^3/uL
Absolute Eos (auto) 1.2 H (0-0.7) 10^3/uL
Absolute Basos (auto) 0.1 (0-0.2) 10^3/uL
Immature Gran % 3.2 H (0-0.5) %
Neutrophils % 65.6 (42.2-75.2) %
Lymphocytes % 6.6 L (20.5-51.1) %
Monocytes % 16.0 H (1.7-9.3) %
Eosinophils % 7.9 H (0-6) %
Basophils % 0.7 (0-2) %
Nucleated RBC % 0 (-) %
Haptoglobin 437 H (30-200) mg/dL
Blood Gas and Chemistry - Last 24 hours
06/16/25 Range/Units
10:02
Sodium Pending
Potassium Pending
Chloride Pending
Carbon Dioxide Pending
BUN Pending
Creatinine Pending
Glucose Pending
Calcium Pending
Magnesium Pending
Total Bilirubin Pending
AST Pending
ALT Pending
Alkaline Phosphatase Pending
Total Protein Pending
Albumin Pending
06/14/25 06/15/25 06/16/25
05:59 06:59 06:59
Intake Total 1200 / 1200 960 / 960
Output Total 1250 / 1250 300 / 300
Balance -50 / -50 660 / 660
Chest X Ray (06/09/2025):IMPRESSION: Findings most consistent with congestive heart failure.
Chest X Ray (06/11/2025):IMPRESSION: Worsening CHF
Chest X Ray (06/12/2025):IMPRESSION: Improvement in Pulmonary Edema
EKG (06/09/2025): SINUS TACHYCARDIA Poor R-wave progression ; consider anterior infarct, lead placement, or normal variant
Echo (06/10/2025):Compared to the prior on 07/13/2023, the systolic function has reduced from 60-65% to 41 %.
Review of Systems
-
History Source: Patient
All other systems: Reviewed and negative
Respiratory: Reports Trouble Breathing
Psych: Reports Sad and Anxious
Physical Exam
-
General: Well Developed, Well Nourished, No Apparent Distress and Comfortable
HEENT: Normocephalic, Atraumatic and Deaf
Respiratory: Clear to Auscultation
Cardiac: Regular Rhythm and S1/S2
GI: Soft, Nontender, Nondistended and Normal Bowel Sounds
Musculoskeletal: No Clubbing, No Cyanosis and No Edema
Neuro: Nonfocal/Grossly Intact
Data Reviewed
-
Diagnostic Radiology: Report Reviewed by me and Discussed with Physician
Medical Tests (Nuc Med, Echo etc): Report Reviewed by me and Discussed with Physician
Labs: Labs Reviewed by me and Discussed with Physician
--- NOTE | 2025-06-16 10:55 | PTOTSP ---
Chart reviewed; patient to be discharged on hospice. Skilled therapy no longer indicated. Will discharge. If needs change, please re-consult.
--- NOTE | 2025-06-16 10:57 | W.PN.HOSP.TC ---
Addendum entered and electronically signed by Gricelda Barbour MD 06/16/25 13:37:
I saw and evaluated the patient independently. I reviewed and discussed the resident�s note and agree with findings and plan as documented by Dr. Foss.
GENERAL: well developed, well nourished, male in no apparent distress
HEENT: NC/AT--deaf
HEART: regular rate and rhythm, +S1, +S2
LUNGS : clear to auscultation bilaterally
ABDOM: soft, nontender, nondistended, + bowel sounds
EXT: no cyanosis, clubbing, or edema
NEUROLOGIC: nonfocal
Acute on chronic combined (systolic AND diastolic) CHF exacerbation/Non-ischemic myocardial injury due to CHF, hypoxia, MACHELLE/CAD stable s/p CABG/Afib, unspecified--ECHO with EF 41%, stage 1 diastolic dysfunction--s/p right heart cath to eval volume
status--appears to be mostly euvolemic--PCWP = 16 but creat 3.9 and no room for further diuresis--this is likely end stage cardiorenal--recommending hospice--Dr. Foss spoke with family who are in agreement--plans for PRN lasix for comfort and
back to SNF on hospice--hospice agency can decide about continuing meds
Acute COPD exacerbation on admission--Pneumonia ruled out--COVID-19 and influenza neg--apprec pulm--CT scan cannot be done with contrast given creatinine and likely would not change consultant--finished prednisone taper and ABX stopped as pt
improved with diuresis--cont bronchodilators--Cont chronic Azithromycin
Leukocytosis--likely due to recent steroids
Acute hypoxic respiratory failure due to all above--off O2
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
Anemia likely of chronic disease--no evidence of bleeding--Hx of retroperitoneal hematoma and GIB in 2023, s/p massive blood transfusion
PVD/HLD/GERD/Essential HTN--cont home meds, when able
GOC discussion had by Dr. Foss with family--agreeable to hospice--CM also present for discussion--looking to go back to SNF tomorrow
DVT proph --heparin
DNR/DNI
Original Note:
Today's Communication/Plan
-
Discharge patient on all his home medications.
Discharge to [facility] for continued care.
Assessment / Plan
Assessment / Plan
Impression:
85yo M with HTN, HLD, CKD, COPD, HFpEF, afib, CAD, PAD, deafness came with SOB, managed for acute HFpEF exacerbation and possible COPD exacerbation complicated by worsening cardiorenal syndrome, while patient not a candidate for HD
A/P:
#Acute on chronic combined CHF exacerbation
#Non-ischemic myocardial injury 2/2 CHF, hypoxia, MACHELLE
#CAD stable s/p CABG
#Afib, unspecified
no chest pain, cardiology not concerning for ACS
Not on anticoagulation due to bleeding risk
With family permission, he had his RHC procedure done this morning.
Echo: EF 41%, mild-moderate MR, left ventricular wall motion is diffusely hypokinetic. Stage I diastolic dysfunction suggestive of abnormal relaxation
Right Hearth Catheterization: Mildly elevated filling pressures likely due to decreased ejection fraction. 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 Preserved cardiac functional parameters. Recommended to hold diuresis
given mild elevation in filling pressures with elevated BUN/creatinine.
Appears to be mostly Euvolemic
PCWP = 16, but creatinine =3.9 and no further room for diuresis; likely end stage cardiorenal syndrome.
55.1 kg appears to be this patient's dry weight.
Overall prognosis is poor given that we have come to this point. He is not a dialysis candidate.
Strongly recommend hospice.
Spoke with family who are in agreement
Plans for PRN Lasix for comfort and back to SNF today on hospice.
#Acute COPD exacerbation on admisison
#Pneumonia ruled out
COVID-19 and influenza neg
Pulmonary consult
CT scan cannot be done with contrast due to creatinine and likely would not change consultant
cont bronchodilators
Completed prednisone taper
Abx stopped and CXR improved with diuresis without overt signs of pneumonia as agreed with Casino Porter
Cont chronic Azithromycin
#Leukocytosis
2/2 recent steroids
No fever
#Acute hypoxic respiratory failure 2/2 above
Off O2
#MACHELLE on CKD stage 3b 2/2 cardiorenal syndrome
#Hyponatremia
Nephrology consult: agreed with diuresis
not candidate for HD
BUN still high at 115 (dropped from 117).
Creatinine increased from 3.9 to 3.9
#Anemia
anemia w/u
check FOBT
Hx of retroperitoneal hematoma nd GIB in 2023, s/p massive blood transfusion
#PVD
#HLD
#GERD
#Essential HTN
cont home meds, when able
#GOC
due to worsening MACHELLE and not being candidate for HD - reasonable to offer hospice
Pending family decision
DVT ppx heparin
DNR/DNI
Anticipated Discharge: Today
Subjective/Interval History
-
Date of Service: June 16, 2025
As per nurse, there were no acute overnight events for this patient.
Objective Data
-
Labs:
Laboratory Results
06/16/25
10:02
WBC 15.0 H
Hgb 10.2 L
Hct 30.6 L
Plt Count 235
Sodium Pending
Potassium Pending
Chloride Pending
Carbon Dioxide Pending
BUN Pending
Creatinine Pending
Glucose Pending
Calcium Pending
Total Bilirubin Pending
AST Pending
ALT Pending
Alkaline Phosphatase Pending
Vital Signs:
Vital Signs
Temp Pulse Resp BP Pulse Ox
97.7 F 79 24 156/89 95
06/16/25 10:44 06/16/25 10:44 06/16/25 10:44 06/16/25 10:44 06/16/25 10:44
I&O
06/15/25 06/16/25 06/17/25
06:59 06:59 06:59
Intake Total 960 / 960 120 / 120
Output Total 300 / 300
Balance 660 / 660 120 / 120
Chest X Ray (06/09/2025):IMPRESSION: Findings most consistent with congestive heart failure.
Chest X Ray (06/11/2025):IMPRESSION: Worsening CHF
Chest X Ray (06/12/2025):IMPRESSION: Improvement in Pulmonary Edema
EKG (06/09/2025): SINUS TACHYCARDIA Poor R-wave progression ; consider anterior infarct, lead placement, or normal variant
Echo (06/10/2025):Compared to the prior on 07/13/2023, the systolic function has reduced from 60-65% to 41 %.
Review of Systems
-
History Source: Patient
All other systems: Reviewed and negative
Respiratory: Reports Trouble Breathing
Psych: Reports Sad and Anxious
Physical Exam
-
General: Well Developed, Well Nourished, No Apparent Distress and Comfortable
HEENT: Normocephalic, Atraumatic and Deaf
Respiratory: Clear to Auscultation
Cardiac: Regular Rhythm and S1/S2
GI: Soft, Nontender, Nondistended and Normal Bowel Sounds
Musculoskeletal: No Clubbing, No Cyanosis and No Edema
Neuro: Nonfocal/Grossly Intact
Data Reviewed
-
Diagnostic Radiology: Report Reviewed by me and Discussed with Physician
Medical Tests (Nuc Med, Echo etc): Report Reviewed by me and Discussed with Physician
Labs: Labs Reviewed by me and Discussed with Physician
[2025-06-16 10:58] LABS: ALT (SGPT) 21 U/L (0-50); AST (SGOT) 21 U/L (17-59); Albumin 3.6 g/dl (3.5-5.0); Alkaline Phosphatase 96 U/L (38-126); Blood Urea Nitrogen 114 mg/dl (9-20); Calcium 8.8 mg/dl (8.4-10.2); Carbon Dioxide 24 mmol/L (22-30); Chloride 100 mmol/L (98-107); Estimated Creatinine Clearance 11 ml/min; Glucose 125 mg/dl (70-99); Magnesium 2.9 mg/dl (1.6-2.3); Potassium 4.6 mmol/L (3.5-5.1); Sodium 133 mmol/L (135-145); Total Protein 6.2 g/dl (6.3-8.2); eGFR 14.86
--- NOTE | 2025-06-16 11:11 | PN.CDI ---
CDI
- -
CDI:
Physician Documentation Request
Admit Date: 06/09/25 23:39
Dear Doctor,
Patient admitted for heart failure.
06/15 Cardiology PN: 'HFmEF -Acute. -TTE 06/10/2025: LVEF 41%'
06/15 Hospitalist PN: 'Acute on chronic combined CHF exacerbation/Non-ischemic myocardial injury due to CHF'
Please provide further specificity regarding the most likely type of CHF you are evaluating, treating or monitoring.
Systolic
Combined systolic and diastolic
Other
Use of terms such as suspected, likely, concern for, or probable (associated with a specific diagnosis that is being evaluated, monitored, or treated as if it exists) are acceptable and can be coded in the inpatient setting, when documented at the
time of discharge.
Thank you,
Maude Ramirez RN, BSN
CDI Specialist
Available via [facility] text
Please use your independent medical judgment in providing your response.
--- NOTE | 2025-06-16 11:14 | CM ---
Patient for return to [facility] today on hospice to sign onto [facility] [phone] please call report to [phone]/fax [phone]. Patient ambulance transport forms completed and ambulance for transportation currently. CM notified [facility]
liaison and [facility]. CM reviewed IMM with patient daughter via phone and she will meet with [facility] to confirm hospice. CM will continue to follow for discharge planning needs.
Plan; transfer to SNF; [facility]
== END 2025-06-16 11:23 | disposition hospice, inpatient (51) | DRG 286 ==
LOC: 3 WEST ACU 23:39
PROVIDERS: Emergency Medicine; Family Medicine; Internal Medicine; Internal Medicine Cardiovascular Disease; Nurse Practitioner Family; Specialist; ADMITTING PHYSICIAN Internal Medicine; ATTENDING PHYSICIAN Internal Medicine; EMERGENCY PHYSICIAN Student in an Organized Health Care Education/Training Program; FAMILY PHYSICIAN Student in an Organized Health Care Education/Training Program; OTHER PHYSICIAN Internal Medicine; OTHER PHYSICIAN Internal Medicine Cardiovascular Disease
PROC: 5A09357 Assistance with Respiratory Ventilation, Less than 24 Consecutive Hours, Continuous Positive Airway Pressure (ICD-10-PCS; 2025-06-10)
PROC: B2141ZZ Fluoroscopy of Right Heart using Low Osmolar Contrast (ICD-10-PCS; 2025-06-15)
PROC: 4A023N6 Measurement of Cardiac Sampling and Pressure, Right Heart, Percutaneous Approach (ICD-10-PCS; 2025-06-15)
DX: I13.0 Hypertensive heart and chronic kidney disease with heart failure and stage 1 through stage 4 chronic kidney disease, or unspecified chronic kidney disease (principal); I50.43 Acute on chronic combined systolic (congestive) and diastolic (congestive) heart failure; J18.9 Pneumonia, unspecified organism; J96.21 Acute and chronic respiratory failure with hypoxia; J69.0 Pneumonitis due to inhalation of food and vomit; E87.1 Hypo-osmolality and hyponatremia; J44.1 Chronic obstructive pulmonary disease with (acute) exacerbation; N17.9 Acute kidney failure, unspecified; J44.0 Chronic obstructive pulmonary disease with (acute) lower respiratory infection; N18.4 Chronic kidney disease, stage 4 (severe); E87.20 Acidosis, unspecified; I48.0 Paroxysmal atrial fibrillation; I5A Non-ischemic myocardial injury (non-traumatic); I42.9 Cardiomyopathy, unspecified; I25.10 Atherosclerotic heart disease of native coronary artery without angina pectoris; D63.1 Anemia in chronic kidney disease; I73.9 Peripheral vascular disease, unspecified; K21.9 Gastro-esophageal reflux disease without esophagitis; E86.1 Hypovolemia; E78.5 Hyperlipidemia, unspecified; Z66 Do not resuscitate; Z11.52 Encounter for screening for COVID-19; Z79.899 Other long term (current) drug therapy; Z87.891 Personal history of nicotine dependence; Z95.1 Presence of aortocoronary bypass graft; E87.6 Hypokalemia
CPT/HCPCS: 36600; 51798; 71045; 71046; 74230; 80048; 80053; 80061; 81003; 81015; 82570; 82607; 82728; 82746; 82805; 83010; 83540; 83550; 83605; 83615; 83735; 83880; 84156; 84300; 84484; 85025; 85027; 85045; 86850; 86880; 86900; 86901; 87040; 87070; 87449; 87502; 87811; 87899; 92526; 92610; 92611; 93005; 93306; 93451; 94640; 94660; 96365; 96375; 97163; 99285; C1894